=== PATIENT | female | born 1960 | race Caucasian/White ===

== ENCOUNTER → 2017-08-12 | Outpatient (REF) | payer OTHER, MEDICAID | LOC: M LAB REF 17:01 | DX: N39.0 Urinary tract infection, site not specified (principal) | CPT/HCPCS: 87088; 87186 ==

== ENCOUNTER → 2018-01-06 | Outpatient (REF) | payer OTHER, MEDICAID ==
[2018-01-06 18:47] LABS: IRON (FE) 103 UG/DL (50-170)
[2018-01-06 18:47] LABS: FERRITIN 420 NG/ML (8-252)
== END ==
LOC: M LAB REF 17:09
DX: R79.89 Other specified abnormal findings of blood chemistry (principal)
CPT/HCPCS: 83540

== ENCOUNTER → 2018-11-08 | Outpatient (REF) | payer MEDICARE, MEDICAID ==
[2018-11-10 08:19] LABS: LDL DIRECT 104 mg/dL (0-99)
== END ==
LOC: M LAB REF 16:11
PROVIDERS: ATTEND Nurse Practitioner Adult Health
DX: E11.65 Type 2 diabetes mellitus with hyperglycemia (principal)

== ENCOUNTER → 2019-06-20 | Outpatient (REF) | payer MEDICARE, MEDICAID ==
[2019-06-22 08:17] LABS: LDL DIRECT 75 mg/dL (0-99)
== END ==
LOC: M LAB REF 12:10
PROVIDERS: ATTEND Nurse Practitioner Adult Health
DX: R35.0 Frequency of micturition (principal); E78.00 Pure hypercholesterolemia, unspecified

== ENCOUNTER 2019-09-18 02:28 | Emergency (ER) | payer MEDICAID, MEDICARE ==
[~2019-09-18] VITALS: Ht 167.6 cm; Wt 98.6 kg
[2019-09-18 03:56] LABS: BASO # 0.1 10^3/uL (0.0-0.2); BASO % 0.3 % (0.0-1.0); EOS # 0.1 10^3/uL (0.0-0.5); EOS % 0.5 % (0.0-3.0); HEMATOCRIT 41.4 % (36.0-47.0); LYMPH % 10.8 % (24.0-44.0); MEAN CORPUSCULAR HEMOGLOBIN 31.7 pg (27.0-33.0); MEAN CORPUSCULAR HGB CONC 33.8 g/dl (32.0-36.5); MEAN CORPUSCULAR VOLUME 93.9 fl (80.0-96.0); MONO # 1.5 10^3/uL (0.0-0.8); MONO % 7.7 % (0.0-5.0); NEUTROPHILS # 15.2 10^3/uL (1.5-8.5); NEUTROPHILS % 80.2 % (36.0-66.0); PLATELET COUNT, AUTOMATED 248 10^3/uL (150-450); RED BLOOD COUNT 4.41 10^6/uL (4.00-5.40); WHITE BLOOD COUNT 18.9 10^3/uL (4.0-10.0)
[2019-09-18] MEDS ORDERED: NS 500 ML IV ONE (04:15)
[2019-09-18] MEDS ORDERED: ONDANSETRON 4MG/2ML VIAL IV ONE (04:15)
[2019-09-18 04:19] LABS: ALBUMIN 3.9 GM/DL (3.2-5.2); ALT/SGPT 37 U/L (12-78); BILIRUBIN,DIRECT 0.2 MG/DL (0.0-0.2); BILIRUBIN,TOTAL 0.4 MG/DL (0.2-1.0); CK-MB VALUE MASS 2.4 NG/ML (<3.6); CPK CREATINE PHOSPHOKINASE 91 U/L (26-192); LIPASE 189 U/L (73-393); MB/CK RELATIVE INDEX 2.64 (< OR =4); TOTAL PROTEIN 7.2 GM/DL (6.4-8.2); TROPONIN I < 0.02 NG/ML (< 0.10)
[2019-09-18] MEDS ORDERED: ONDA4TAB6 PO (06:19)
--- NOTE | 2019-09-18 06:33 | ECGEPIP ---
[facility] - ED Test Date: 2019-09-18 Pat Name: PATIENCE BONILLA Department: Room: - Gender: Female Coremaker: eleazar : 1960 Requested By: TRISTEN Arevalo Order Number: [id number] Reading MD: Eleonora Mckeon Measurements Intervals [place] Rate: 92 P: 67 NE: 144 QRS: -23 QRSD: 118 T: 110 QT: 372 QTc: 460 Interpretive Statements SINUS RHYTHM LAD MODERATE INTRAVENTRICULAR CONDUCTION DELAY ST DEVIATION AND MODERATE T-WAVE ABNORMALITY, CONSIDER LATERAL ISCHEMIA NO PRIOR ECG FOR COMPARISON CLINICAL CORRELATION ADVISED Electronically Signed on 09-18-2019 6:33:21 EDT by Eleonora Mckeon
[2019-09-18 06:45] VITALS: BP 129/67
== END 2019-09-18 06:57 | disposition home or self-care (01) ==
LOC: EDBD 02:28 → M ED 02:28
DX: K52.9 Noninfective gastroenteritis and colitis, unspecified (principal); I25.10 Atherosclerotic heart disease of native coronary artery without angina pectoris; I25.2 Old myocardial infarction; Z95.1 Presence of aortocoronary bypass graft
CPT/HCPCS: 80047; 80076; 82550; 82553; 83690; 84484; 85025; 93005; 93041; 96361; 96374; 99284; J2405

== ENCOUNTER → 2019-12-20 | Outpatient (REF) | payer MEDICARE ==
[~2019-12-20] MED LIST: ONDA4TAB6 PO
[2020-01-26 09:57] LABS: LDL DIRECT SEE SEPARATE REPORT mg/dl
== END ==
LOC: M LAB REF 16:53
PROVIDERS: ATTEND Nurse Practitioner Adult Health
DX: E78.00 Pure hypercholesterolemia, unspecified (principal)

== ENCOUNTER → 2020-04-03 | Outpatient (REF) | payer MEDICARE, MEDICAID ==
[2020-04-04 08:09] LABS: LDL DIRECT 76 mg/dL (0-99)
== END ==
LOC: M LAB REF 12:06
PROVIDERS: ATTEND Nurse Practitioner Adult Health
DX: E11.40 Type 2 diabetes mellitus with diabetic neuropathy, unspecified (principal); E78.00 Pure hypercholesterolemia, unspecified

== ENCOUNTER 2020-06-16 04:27 | Emergency (ER) | payer MEDICARE, MEDICAID ==
[~2020-06-16] VITALS: Ht 170.2 cm; Wt 98.2 kg
--- OUTSIDE RECORDS SUMMARY | 2020-06-16 04:31 | CCD | Continuity of Care Document ---
Author Author Samantha Hayden Organization Unknown Address [address] [facility] [address] [place] [address] Phone [phone] Care Team Providers Care Gauger Chief Delivery Name Role Phone Precious Hayden AUTM [phone] [employer] AUTM Problems Active Problems Provider Date Benign essential hypertension JOSE C Rincon Onset: Hypothyroidism JOSE C Rincon Onset: 06/16/2011 Disorder of nervous system due to type 2 diabetes mellitus N JOSE C Lobato Onset: 06/16/2011 Polyneuropathy due to diabetes mellitus JOSE C Rincon Onset: 06/16/2011 Pure hypercholesterolemia JOSE C Rincon Onset: 2011 Left ventricular hypertrophy by electrocardiogram JOSE C Zeng Onset: 08/30/2014 Chronic diastolic heart failure JOSE C Rincon Onset: 08/30/2014 Type 2 diabetes mellitus RASHID Castle Onset: 12/20/19 20 Social History Type Date Description Comments Sex Unknown Tobacco Use Start: Unknown End: Unknown Quit Tobacco Use Start: Unknown End: Unknown Patient is a former smoker SMOKED FOR 20 YRS A PACK A DAY Exercise Type/Frequency Exercises sporadically Seat Belt/Car Seat always uses seat belt Allergies, Adverse Reactions, Alerts Active Allergies Reaction Severity Comments Date Enalapril Cough 08/03/2018 Inactive Allergies Lipitor 04/01/2010 NKDA 01/12/2014 Medications Active Medications SIG Qnty Indications Ordering Provide r Date Trulicity 1.5mg/0.5ML Solution Pen -Inject 1 injection weekly 6ml JOSE C Rincon 04/03/20 20 Adjustable Commode 3-In-1 Misc use as needed #r35., m54.5, e11.4 1units Precious Hayden, [facility] 04/03/2020 Vascepa 1gm Capsules 1 @ din ner 30caps Precious Hayden, [facility] 04/03/2020 Fenofibrate 145mg Tablets take one tablet by mouth every day 90tabs Precious Hayden, [facility] 12/26/19 20 Rosuvastatin Calcium 40mg Tablets Take One Tablet By Mouth Every Day 90tabs Shayna Perera, [facility] 12/21 Poise Ultimate Absorbency Pads use as directed size 6 90units Precious Hayden, [facility] 07/05/2019 Drisdol 1.25mg (97870 Ut) Capsules 2 tab weekly 24caps [facility]/04[facility]2019 Clopidogrel Bisulfate 75mg Tablets Take One Tablet By Mouth Every Day 90tabs Precious Hayden, Nathaniel YOUNG 01/08/2019 DesignLine Ultra 2 w/Device Kit test twice a day and as directed e11.65 1units Shayna Perera [facility] 11/16 DesignLine Ultra Blue Strips use twice daily to check blood sugar dx e11.65 200units Shayna Perera [facility] 12/07/2018 Furosemide 40mg Tablets take one tablet by mouth every day 90tabs Precious Hayden, [facility] 10/13/2018 Yuvafem 10mcg Tablets insert 1 tablet vginally twice weekly 24tabs Precious Hayden, [facility] 10/13 Nitroglycerin 0.4mg Tablets Sub Place 1 T`Ablet Under The Tongue Every 5 Minutes For Up To 3 Doses as Needed For Chest Discomfort 25tabs Precious Hayden, [facility] 04/13/2018 Folic Acid 800mcg Tablets 1 p o qd Precious Hayden, [facility] 03/22/2018 Humalog Kwikpen 100U nit/ML Solution Pen-Inject Inject 30 Subcutaneously Before Lunch And Dinner 15units Shayna Perera [facility] 12/28/2017 Clobetasol Propionate Emollient 0.05% Cream apply small amount to rash twice daily for intermittently 60gm Shayna Perera [facility] 12/21/2017 Tresiba Flextouch 20 0Unit/ML Solution Pen-Inject Inject 70 Units Under The Skin twice Daily 60units JEFF Schrader JR 09/10/2017 Cyclobenzaprine HCL 5mg Tablets take one tablet by mouth three times a day as needed , maximum daily dose = 3 tablets 60tabs Precious Hayden, JOSE C 08/27/2017 Levothyroxine Sodium 112mcg Tablet s Take One Tablet By Mouth Every Day Before Breakfast On An Empty Stomach 90tabs JEFF Schrader JR 07/08/2017 Benadryl 25mg Capsules 1 by mouth every night at bedtime as needed 30caps Shayna Perera [facility] 03/[address] Take One Tablet By Mouth Every Day 90tabs Precious Hayden, [facility] 01/22/2017 Lancets Ultra Fine Misc test 3 times a day DX E11.40 200units Precious Hayden, [facility] 07/01/2016 Gabapentin 800mg Tablets take one tablet by mouth twice a day 180tabs Precious Hayden, [facility] 2015 Novofine Plus 32G X 4 mm Misc use three times a day or as directed for insulin 300units Precious Hayden, [facility] 01/25/2016 Pantoprazole Sodium 40mg Tablets D R take one tablet by mouth every day 90tabs Nathaniel Rincon NP 09/13/2015 Potassium Chloride Laya ER 20Meq Tablets ER Take One Tablet By Mouth Every Day 60tabs Shayna Perera, [facility] 12/04/2014 Prolia 60mg/ml Soln Prefill Syring e inject 60 mg under the skin every 6 months 1units Precious avelar, [facility] 10/12/2013 Optivar 0.05% Solution Instill One Drop Twice A Day In Each Eye as Needed 18units Precious Littlejohn r, [facility] 02/02/2013 Alcohol Wipes 70% Pads qid DX E11.40 2Boxes Shayna Perera [facility] 09/04/2010 C-Pap Mask And Supplies use as directed 1units Precious Orellana D.O. 01/18/2010 Atenolol 50mg Tablets take one tablet by mouth every morning 90tabs Precious Hayden, [facility] 010 Tylenol 8 Hour 650mg Tablets ER 1 by mouth three times a day Unknown Centrum Silver 50+Women 50+Women T ablets 1 by mouth every day Unknown Medications Administered in Office Medication SIG Qnty Indications Ordering Provider Date Prolia (denosumab) 60mg,SC injection, ND C#[id number] Injection Precious Friedman er, ANP 06/20/2019 Therapeutic Injection Injection Precious Hayden, ANP 06/20/2019 Prolia (denosumab) 60mg,SC injection, ND C#[id number] Injection Precious Reyes er, ANP 10/06/2018 Chemotherpy Admin Subcutaneous/Im Non-Ho rmonal Anti-Neoplastic Injection Nurse Brielle farah 10/06/2018 Prolia (denosumab) 60mg,SC injection, ND C#[id number] Injection Precious Friedman er, ANP 04/12/2018 Administration Of Flu Vaccine Inj ection Precious Hayden, ANP 04/12/2018 Chemotherpy Admin Subcutaneous/Im Non-Ho rmonal Anti-Neoplastic Injection Precious staley, ANP 04/12/2018 Prolia (denosumab) 60mg,SC injection, ND C#[id number] Injection Precious Friedman er, ANP 10/06/2017 Chemotherpy Admin Subcutaneous/Im Non-Ho rmonal Anti-Neoplastic Injection Precious johnsoner, ANP 10/06/2017 Administration Of Flu Vaccine Inj ection Torres Mc, [facility] 03/03/2017 Chemotherpy Admin Subcutaneous/Im Non-Ho rmonal Anti-Neoplastic Injection Precious staley, ANP 12/29/2016 Administration Of Flu Vaccine Inj ection Precious Hayden, ANP 03/31/2016 Chemotherpy Admin Subcutaneous/Im Non-Ho rmonal Anti-Neoplastic Injection Precious staley, ANP 06/20/2015 Administration Of Flu Vaccine Inj ection Precious Hayden, ANP 03/20/2015 Chemotherpy Admin Subcutaneous/Im Non-Ho rmonal Anti-Neoplastic Injection Preicous staley, ANP 08/01/2014 Chemotherpy Admin Subcutaneous/Im Non-Ho rmonal Anti-Neoplastic Injection Shayna Dumont, [facility] 11/09/2013 Chemotherpy Admin Subcutaneous/Im Non-Ho rmonal Anti-Neoplastic Injection Nurse Brielle farah 04/27/2013 Administration Of Flu Vaccine Inj ection Precious Hayden, ANP 03/09/2013 Administration Of Flu Vaccine Inj robertion Precious Liu Jackelyn, ANP 02/03/2011 Administration Of Flu Vaccine Inj noemi Liu Jackelyn, ANP 04/01/2010 Immunizations CPT Code Status Date Vaccine Lot # [id number] Given 04/03/2020 Influenza Vaccin e Quadrivalent Preser/Antibiotic Free Im Use [id number] 84942 Given 04/12/2018 Influenza Virus Vaccine, Quadrivalent (Cciiv4), Derived From 9 Given 03/03/2017 Influenza Vaccin e Quadrivalent Preser/Antibiotic Free Im Use [id number] Q2037 Given 03/31/2016 Fluvirin Virus Vaccine [id number] 01 Q2037 Given 03/20/2015 Fluvirin Virus Vaccine 54151 01 Q2037 Given 03/09/2013 Fluvirin Virus Vaccine 14293 01 Q2037 Given 02/03/2011 Fluvirin Virus Vaccine 07386 Given 04/01/2010 Influenza Virus Vaccine 66389 Given 12/30/2007 Pneumovax 23 Vital Signs Date Vital Result Comment 04/03/2020 8:52am BP Systolic 104 mmHg BP Diastolic 60 mmHg Heart Rate 68 /min Height 65.75 inches 5'5.75" Weight 216.00 lb O2 % BldC Oximetry 96 % BMI (Body Mass Index) 35.1 kg/m2 12/20/2019 2:49pm BP Systolic 96 mmHg BP Diastolic 50 mmHg Heart Rate 75 /min Height 65.75 inches 5'5.75" Weight 228.00 lb O2 % BldC Oximetry 97 % RM Air BMI (Body Mass Index) 37.1 kg/m2 Results Test Acquired Date Facility Test Result H/L Range Note Complete Blood Count 04/03/2020 [facility] Special Education Educational Assistant: Dr Fabiano Mcgowan [place], [place] [id number] [phone] WBC 11.9 x10*3/UL High 4.1 - 10.9 1 RBC 4.74 x10*6/UL 4.20 - 6.30 Hemoglobin 14.7 g/dL 12.0 - 18.0 Hematocrit 42.9 % 37.0 - 51.0 MCV 90.5 fL 80.0 - 97.0 MCH 31.0 pg 26.0 - 32.0 MCHC 34.2 g/dL 31.0 - 38.0 RDW 12.6 % 11.6 - 13.7 PLT 313 x10*3/UL 140 - 440 MPV 9.4 FL 7.8 - 11.0 Lymph % 27.2 % 10.0 - 58.5 Mid % 6.8 % 1.7 - 9.3 Neut % 66.0 % 37.0 - 92.0 Lymph # 3.2 x10*3/UL 0.6 - 4.1 Mid # 0.8 x10*3/UL High 0.1 - 0.6 Neut # 7.9 x10*3/UL High 2.0 - 7.8 A1c 04/03/2020 [facility] , Special Education Educational Assistant: [place] [address] [phone] Hba1c 11.3 % High <5.7 2 Est Avg Glucose 278 mg/dL High 60 - 110 Comprehensive Chem Profile 04/03/2020 [facility] Special Education Educational Assistant: Dr Fabiano [place] [address] [phone] Glucose 628 mg/dL Critical high 74 - 99 3 BUN 26 mg/dL High 7 - 18 Creatinine 1.2 mg/dL 0.6 - 1.3 Sodium 129 mEq/L Low 136 - 145 4 Potassium 4.6 mEq/L 3.5 - 5.1 Chloride 92 mEq/L Low 98 - 107 Carbon Dioxide 25 mEq/L 21 - 32 Calcium 9.8 mg/dL 8.5 - 10.1 Alk. Phosphatase 97 mg/dL 46 - 116 Total Bilirubin 0.8 mg/dL 0.2 - 1.0 Ast (Sgot) 16 U/L 15 - 37 Alt (SGPT) 21 U/L 12 - 78 Albumin 3.9 g/dL 3.4 - 5.0 Total Protein 7.5 g/dL 6.4 - 8.2 A/G Ratio 1.08 CALC 1.00 - 1.90 GFR 46 mL/min Low >60 GFR 55 mL/min Low >60 5 Lipid Profile 04/03/2020 [facility] , Special Education Educational Assistant: [place] [address] [phone] Cholesterol 193 mg/dL 131 - 200 Triglycerides 706 mg/dL High 30 - 150 HDL Cholesterol 36 mg/dL 35 - 60 LDL (Calculated) Unable to calcul <SEE NOTE> CALC 50 - 159 6 Laboratory test finding 04/03/2020 [facility] Special Education Educational Assistant: Dr Fab[place] [address] [phone] Thyroid Stimulating Hormone 5.73 uIU/mL High 0.3 6 - 3.74 Microalbumin/Creatinine Urine 04/03/2020 [facility] Special Education Educational Assistant: Dr Fabiano Mcgowan [place] [id number] [phone] Microalbumin Urine 15.9 mg/L 1.3 - 20.0 Urine Creatinine 49.8 mg/dL 30.0 - 125.0 Microalb/Creat Ratio 31.9 ug/mg High 0.0 - 30.0 Laboratory test finding 04/03/2020 [facility] [address] [place] [address] [phone] Vitamin B12 Level > 2000 pg/mL High 247-911 7 LDL Direct 04/03/2020 [facility] [address] [place] [address] [phone] LDL Direct 76 mg/dL Normal 0-99 Comment LDL Direct TNP Normal . 8 Complete Blood Count 12/20/2019 [facility] Special Education Educational Assistant: Dr Fabiano Mcgowan [place] [id number] [phone] WBC 9.9 x10*3/UL 4.1 - 10.9 RBC 4.14 x10*6/UL Low 4.20 - 6.30 Hemoglobin 12.9 g/dL 12.0 - 18.0 Hematocrit 37.2 % 37.0 - 51.0 MCV 89.7 fL 80.0 - 97.0 MCH 31.2 pg 26.0 - 32.0 MCHC 34.8 g/dL 31.0 - 38.0 RDW 12.0 % 11.6 - 13.7 PLT 243 x10*3/UL 140 - 440 MPV 8.5 FL 7.8 - 11.0 Lymph % 41.9 % 10.0 - 58.5 Mid % 8.5 % 1.7 - 9.3 Neut % 49.6 % 37.0 - 92.0 Lymph # 4.1 x10*3/UL 0.6 - 4.1 Mid # 0.9 x10*3/UL High 0.1 - 0.6 Neut # 4.9 x10*3/UL 2.0 - 7.8 A1c 12/20/2019 [facility] , Special Education Educational Assistant: [place] [address] [phone] Hba1c 10.7 g/dL High 4.8 - 5.6 9 Est Avg Glucose 260 mg/dL High 60 - 110 Comprehensive Chem Profile 12/20/2019 [facility] Special Education Educational Assistant: Dr Fabiano [place] [address] [phone] Glucose 223 mg/dL High 74 - 99 10 BUN 22 mg/dL High 7 - 18 Creatinine 0.8 mg/dL 0.6 - 1.3 Sodium 143 mEq/L 136 - 145 Potassium 4.5 mEq/L 3.5 - 5.1 Chloride 104 mEq/L 98 - 107 Carbon Dioxide 24 mEq/L 21 - 32 Calcium 9.4 mg/dL 8.5 - 10.1 Alk. Phosphatase 93 mg/dL 46 - 116 Total Bilirubin 0.4 mg/dL 0.2 - 1.0 Ast (Sgot) 34 U/L 15 - 37 Alt (SGPT) 36 U/L 12 - 78 Albumin 3.5 g/dL 3.4 - 5.0 Total Protein 7.0 g/dL 6.4 - 8.2 A/G Ratio 1.00 CALC 1.00 - 1.90 GFR >= 60 mL/min >60 GFR >= 60 mL/min >60 11 Lipid Profile 12/20/2019 [facility] , Special Education Educational Assistant: [place] [address] [phone] Cholesterol 205 mg/dL High 131 - 200 Triglycerides 619 mg/dL High 30 - 150 HDL Cholesterol 32 mg/dL Low 35 - 60 LDL (Calculated) Unable to calcul <SEE NOTE> CALC 50 - 159 12 Laboratory test finding 12/20/2019 [facility] Special Education Educational Assistant: Dr Fabiano [place] [address] [phone] Vitamin D 25-Hydroxy 38.0 24.0 - 80.0 13 Laboratory test finding 12/20/2019 [facility] [address] [place] [address] [phone] LDL Direct SEE SEPARATE REP <SEE NOTE> mg/dL Normal 14 1 NOTE: CBC VERIFIED 2 NOTE: A1C,TRIG VERIFIED Lab Result Notes: Pre-Diabetes 5.7 - 6.4 % Diabetes = or > 6.5% 3 CRITICAL: PRECIOUS REYESCER NOTIFIED NOTE: RESULT VERIFIED. 100-125 mg/dL PRE-DIABETES/FASTING >126 mg/dL DIABETES/FASTING 4 NOTE: LYTES VERIFIED 5 CHRONIC KIDNEY DISEASE STAGI NG PER NKF STAGE I & II GFR >= 60 NORMAL TO MILDLY DECREASED STAGE III GFR 30-59 MODERATELY DECREASED STAGE IV GFR 15-29 SEVERELY DECREASED STAGE V GFR <15 VERY LITTLE GFR LEFT ESRD GFR <15 ON POWER PLANT ENGINEER 6 Unable to calculate 7 VITAMIN B12 NORMAL RANGE NORMAL 247 - 911 PG/ML INDETERMINATE 211 - 246 PG/ML DEFICIENT LESS THAN 211 PG/ML 8 Performed at: RN - [facility] [address] [id number] Special Education Educational Assistant: Suzan Leyva MD, Phone: [phone] Lab Result Notes: Pre-Diabetes 5.7 - 6.4 % Diabetes = or > 6.5% 10 100-125 mg/dL PRE-DIABET ES/FASTING >126 mg/dL DIABETES/FASTING 11 CHRONIC KIDNEY DISEASE STAGI NG PER NKF STAGE I & II GFR >= 60 NORMAL TO MILDLY DECREASED STAGE III GFR 30-59 MODERATELY DECREASED STAGE IV GFR 15-29 SEVERELY DECREASED STAGE V GFR <15 VERY LITTLE GFR LEFT ESRD GFR <15 ON POWER PLANT ENGINEER 12 Unable to calculate 13 This test was performed osbaldo [email or web address] [place] Vitamin D immunoassay kit. Values obtained with different assay methods should not be used interchangeably. 14 SEE SEPARATE REPORT Testing performed at reference lab . Report copy to follow on a separate form. 01/26/20 REF LAB#:[id number] Procedures Date Code Description Status 12/15/2019 [id number] Diabetic Retinal Eye Exam Comple marcus 11/16/2018 [id number] Mammogram Completed 11/11/2018 [id number] Diabetic Retinal Eye Exam Comple marcus 06/01/2017 [id number] Diabetic Retinal Eye Exam Comple marcus 05/13/2017 [id number] Mammogram Completed 05/08/2016 [id number] Mammogram Completed 05/04/2015 848593707 Bone Mineral Density Test Comple marcus 05/04/2015 [id number] Mammogram Completed 01/19/2015 [id number] Diabetic Foot Exam Completed 03/29/2013 [id number] Mammogram Completed 09/20/2012 193786864 Diabetic Foot Exam Completed 08/10/2012 488294635 Bone Mineral Density Test Comple marcus 03/02/2012 84641115 Mammogram Completed 04/17/2011 [id number] Mammogram Completed 02/24/2011 [id number] Mammogram Completed 06/04/2010 [id number] Colonoscopy Completed 06/08/2009 [id number] Mammogram Completed 05/18/2008 [id number] Colonoscopy Completed Medical Devices Description No Information Available Encounters Type Date Location Provider Dx Diagnosis Office Visit 12/20/2019 3:00p [facility] Shayna Hemphill ne, SEROLOGIST E11.65 Type 2 diabetes mellitus with hyperglyce cally E11.40 Type 2 diabetes mellitus wit h diabetic neuropathy, unsp Z79.4 bed bug exterminator (current) use of i nsulin I25.10 Athscl heart disease of annie ve coronary artery w/o ang pctrs I11.0 Hypertensive heart disease w ith heart failure I50.32 Chronic diastolic (congestiv e) heart failure E78.2 Mixed hyperlipidemia E55.9 Vitamin D deficiency, unspec ified Assessments Date Code Description Provider 04/03/2020 E11.40 Type 2 diabetes sanchez itus with diabetic neuropathy, unspecified Precious Hayden, JOSE C 04/03/2020 I10 Essential (primary) hypertension Precious Hayden, ANP 04/03/2020 E78.00 Pure hypercholesterolemia, unspe cified Precious Hayden, JOSE C 04/03/2020 E78.2 Mixed hyperlipidemia Precious Alvarenga icer, ANP 04/03/2020 E55.9 Vitamin D deficiency, unspecifie d Precious Hayden, ANP 04/03/2020 I50.32 Chronic diastolic (congestive) h eart failure Precious Hayden, JOSE C 04/03/2020 I25.10 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 angina pectoris Precious Hayden, ANP 04/03/2020 E66.09 Other obesity due to excess westley jh Precious Hayden, ANP 04/03/2020 Z68.35 Body mass index [BMI] 35.0-35.9, adult Precious Hayden, ANP 03/07/2020 I10 Essential (primary) hypertension Fabiano Mcgowan MD 03/07/2020 E78.00 Pure hypercholesterolemia, unspe cified Fabiano Mcgowan MD 03/07/2020 E78.2 Mixed hyperlipidemia Fabiano Mcgowan MD 03/07/2020 E55.9 Vitamin D deficiency, unspecifie d Fabiano Mcgowan MD 01/31/2020 I10 Essential (primary) hypertension Fabiano Mcgowan MD 01/31/2020 E78.00 Pure hypercholesterolemia, unspe cified Fabiano Mcgowan MD 01/31/2020 E78.2 Mixed hyperlipidemia Fabiano Mcgowan MD 01/31/2020 I50.32 Chronic diastolic (congestive) h eart failure Fabiano Mcgowan MD 12/29/2019 I10 Essential (primary) hypertension Fabiano Mcgowan MD 12/29/2019 E78.00 Pure hypercholesterolemia, unspe cified Fabiano Mcgowan MD 12/29/2019 E78.2 Mixed hyperlipidemia Fabaino Mcgowan MD 12/29/2019 I50.32 Chronic diastolic (congestive) h eart failure Fabiano Mcgowan MD 12/20/2019 E11.65 Type 2 diabetes mellitus with hy perglycemia Shayna Perera [facility] 12/20/2019 E11.40 Type 2 diabetes mellitus with di abetic neuropathy, unspecifi Shayna Perera [facility] 12/20/2019 Z79.4 MCFP (current) use of insul in Shayna Perera [facility] 12/20/2019 I25.10 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 angina pectoris Shayna Perera [facility] 12/20/2019 I11.0 Hypertensive heart disease with heart failure Shayna Perera [facility] 12/20/2019 I50.32 Chronic diastolic (congestive) h eart failure Shayna Perera [facility] 12/20/2019 E78.2 Mixed hyperlipidemia Shayna Perera [facility] 12/20/2019 E55.9 Vitamin D deficiency, unspecifie d Shayna Perera [facility] 11/17/2019 I10 Essential (primary) hypertension Fabiano Mcgowan MD 11/17/2019 E78.00 Pure hypercholesterolemia, unspe cified Fabiano Mcgowan MD 11/17/2019 E78.2 Mixed hyperlipidemia Fabiano Mcgowan MD 11/17/2019 E66.09 Other obesity due to excess westley jh Fabiano Mcgowan MD 11/14/2019 I10 Essential (primary) hypertension Fabiano Mcgowan MD 11/14/2019 E78.00 Pure hypercholesterolemia, unspe cified Fabiano Mcgowan MD 11/14/2019 E03.9 Hypothyroidism, unspecified Abiodun leonor Mcgowan MD 11/14/2019 E11.65 Type 2 diabetes mellitus with hy perglycemia Fabiano Mcgowan MD 10/11/2019 I10 Essential (primary) hypertension Fabiano Mcgowan MD 10/11/2019 E78.00 Pure hypercholesterolemia, unspe cidonovan Mcgowan MD 10/11/2019 E03.9 Hypothyroidism, unspecified Abiodun leonor Mcgowan MD 10/11/2019 E11.65 Type 2 diabetes mellitus with hy perglycemia Fabiano Mcgowan MD Plan of Treatment Future Appointment(s):* 07/04/2020 2:00 pm - JOSE C Rincon at [facility] * 07/04/2020 1:40 pm [facility] 04/03/2020 - JOSE C Rincon* E11.40 Type 2 diabetes mellitus with diabetic neuropathy, unspecified * I10 Essential (primary) hypertension * E78.00 Pure hypercholesterolemia, unspecified * E78.2 Mixed hyperlipidemia * E55.9 Vitamin D deficiency, unspecified * I50.32 Chronic diastolic (congestive) heart failure * I25.10 Atherosclerotic heart disease of [place] coronary artery without angina pectoris * E66.09 Other obesity due to excess calories * Z68.35 Body mass index [BMI] 35.0-35.9, adult * All * New Medication:* Trulicity 1.5 mg/0.5ML - 1 injection weekly * Adjustable Commode 3-In-1 - use as needed #r35., m54.5, e11.4 * Vascepa 1 gm - 1 @ dinner * Comments:* Plan 3 month follow up. Time spent with her was over 50 minutes * Immunizations/Injections:* Therapeutic Injection Functional Status Description No Information Available Mental Status Description No Information Available Referrals Description No Information Available
--- OUTSIDE RECORDS SUMMARY | 2020-06-16 04:31 | CCD | Continuity of Care Document ---
Author Author Samantha Hayden Organization Unknown Address [address] [facility] [address] [place] [address] Phone [phone] Care Team Providers Care Glassware Maker Name Role Phone Precious Hayden AUTM [phone] [employer] AUTM [phone] Problems Active Problems Provider Date Benign essential [...] needed #r35., m54.5, e11.4 1units Precious Hayden, [facility] 04/03/2020 Vascepa 1gm Capsules 1 @ din ner 30caps Precious Hayden, [facility] 04/03/2020 Fenofibrate 145mg Tablets take one tablet by mouth every day 90tabs Precious Hayden, [facility] 12/26/19 20 Rosuvastatin Calcium 40mg Tablets Take One Tablet By Mouth Every Day 90tabs Shayna Perera, [facility] 12/21 Poise Ultimate Absorbency Pads use as directed size 6 90units Precious Hayden, [facility] 07/05/2019 Drisdol 1.25mg (48670 Ut) Capsules 2 tab weekly 24caps [facility] 07/04/2019 Clopidogrel Bisulfate 75mg Tablets Take One Tablet By Mouth Every Day 90tabs Precious Hayden, Nathaniel YOUNG 01/08/2019 Biomonitor Ultra 2 w/Device Kit test twice a day and as directed e11.65 1units Shayna Perera [facility] 11/16 Biomonitor Ultra Blue Strips use twice daily to check blood sugar dx e11.65 200units Shayna Perera [facility] 12/07/2018 Furosemide 40mg Tablets take one tablet by mouth every day 90tabs Precious Hayden, [facility] 10/13/2018 Yuvafem 10mcg Tablets insert 1 tablet vginally twice weekly 24tabs Precious Hayden, [facility] 10/13 Nitroglycerin 0.4mg Tablets Sub Place 1 T`Ablet Under The Tongue Every 5 Minutes For Up To 3 Doses as Needed For Chest Discomfort 25tabs Precious Hayden, [facility] 04/13/2018 Folic Acid 800mcg Tablets 1 p o qd Precious Hayden, [facility] 03/22/2018 Humalog Kwikpen 100U nit/ML Solution Pen-Inject Inject 30 Subcutaneously Before Lunch And Dinner 15units Shayna Perera [facility] 12/28/2017 Clobetasol Propionate Emollient 0.05% Cream apply small amount to rash twice daily for intermittently 60gm Shayna Perera [facility] 12/21/2017 Tresiba Flextouch 20 0Unit/ML Solution Pen-Inject [...] at bedtime as needed 30caps Shayna Perera [facility] 03/[address] Take One Tablet By Mouth Every Day 90tabs Precious Hayden, [facility] 01/22/2017 Lancets Ultra Fine Misc test 3 times a day DX E11.40 200units Precious Hayden, [facility] 07/01/2016 Gabapentin 800mg Tablets take one tablet by mouth twice a day 180tabs Precious Hayden, [facility] 2015 Novofine Plus 32G X 4 mm Misc use three times a day or as directed for insulin 300units Precious Hayden, [facility] 01/25/2016 Pantoprazole Sodium 40mg Tablets D R take one tablet by mouth every day 90tabs Nathaniel Rincon NP 09/13/2015 Potassium Chloride Laya ER 20Meq Tablets ER Take One Tablet By Mouth Every Day 60tabs Shayna Perera, [facility] 12/04/2014 Prolia 60mg/ml Soln Prefill Syring e inject 60 mg under the skin every 6 months 1units Precious avelar, [facility] 10/12/2013 Optivar 0.05% Solution Instill One Drop Twice A Day In Each Eye as Needed 18units Precious Littlejohn r, [facility] 02/02/2013 Alcohol Wipes 70% Pads qid DX E11.40 2Boxes Shayna Perera [facility] 09/04/2010 C-Pap Mask And Supplies use as directed 1units Precious Orellana D.O. 01/18/2010 Atenolol 50mg Tablets take one tablet by mouth every morning 90tabs Precious Hayden, [facility] 010 Tylenol 8 Hour 650mg Tablets ER 1 by mouth three times a day Unknown Centrum Silver 50+Women 50+Women T ablets 1 by mouth every day Unknown Medications Administered in Office Medication SIG Qnty Indications Ordering Provider Date Administration Of Flu Vaccine Inj ection Precious Boggscer, [facility] 04/03/2020 Prolia (denosumab) 60mg,SC injection, ND C#[id number] Injection Precious Liu [facility] er, ANP 06/20/2019 Therapeutic Injection Injection Precious TheresaMickey Hayden, ANP 06/20/2019 Prolia (denosumab) 60mg,SC injection, ND C#[id number] Injection Precious Liu [facility] er, ANP 10/06/2018 Chemotherpy Admin Subcutaneous/Im Non-Ho rmonal Anti-Neoplastic Injection Nurse Brielle farah 10/06/2018 Prolia (denosumab) 60mg,SC injection, ND C#[id number] Injection Precious Liu [facility] er, ANP 04/12/2018 Administration Of Flu Vaccine Inj ection Precious Liu Jackelyn, ANP 04/12/2018 Chemotherpy Admin Subcutaneous/Im Non-Ho rmonal Anti-Neoplastic Injection Precious staley, ANP 04/12/2018 Prolia (denosumab) 60mg,SC injection, ND C#[id number] Injection Precious Liu [facility] er, ANP 10/06/2017 Chemotherpy Admin Subcutaneous/Im Non-Ho rmonal Anti-Neoplastic Injection Precious johnsoner, ANP 10/06/2017 Administration Of Flu Vaccine Inj ection Torres Mc, [facility] 03/03/2017 Chemotherpy Admin Subcutaneous/Im Non-Ho rmonal Anti-Neoplastic Injection Precious staley, ANP 12/29/2016 Administration Of Flu Vaccine Inj ection Precious JMickey Hayden, ANP 03/31/2016 Chemotherpy Admin Subcutaneous/Im Non-Ho rmonal Anti-Neoplastic Injection Precious staley, ANP 06/20/2015 Administration Of Flu Vaccine Inj ection Precious TheresaMickey Hayden, ANP 03/20/2015 Chemotherpy Admin Subcutaneous/Im Non-Ho rmonal Anti-Neoplastic Injection Precious staley, ANP 08/01/2014 Chemotherpy Admin Subcutaneous/Im Non-Ho rmonal Anti-Neoplastic Injection Shayna Dumont, [facility] 11/09/2013 Chemotherpy Admin Subcutaneous/Im Non-Ho rmonal Anti-Neoplastic Injection Nurse Brielle farah 04/27/2013 Administration Of Flu Vaccine Inj ection Precious Hayden, ANP 03/09/2013 Administration Of Flu Vaccine Inj ection Precious Hayden, ANP 02/03/2011 Administration Of Flu Vaccine Inj ection Precious Hayden, ANP 04/01/2010 Immunizations CPT Code Status Date Vaccine Lot # [id number] Given 04/03/2020 Influenza Vaccin e Quadrivalent Preser/Antibiotic Free Im Use [id number] Given 04/12/2018 Influenza Virus Vaccine, Quadrivalent (Cciiv4), Derived From 8 Given 03/03/2017 Influenza Vaccin e Quadrivalent Preser/Antibiotic Free Im Use [id number] Q2037 Given 03/31/2016 Fluvirin Virus Vaccine 18822 01 Q2037 Given 03/20/2015 Fluvirin Virus Vaccine 16569 01 Q2037 Given 03/09/2013 Fluvirin Virus Vaccine 41031 01 Q2037 Given 02/03/2011 Fluvirin Virus Vaccine 76997 Given 04/01/2010 Influenza Virus Vaccine 66108 Given 12/30/2007 Pneumovax 23 Vital Signs Date [...] H/L Range Note Complete Blood Count 04/03/2020 [facility] Manufacturing Area Manager: Dr Fabiano Mcgowan [place], [place] [id number] [phone] WBC 11.9 x10*3/UL High 4.1 - 10.9 [...] x10*3/UL High 2.0 - 7.8 A1c 04/03/2020 [facility] , Manufacturing Area Manager: [place] [address] [phone] Hba1c 11.3 % High <5.7 2 Est Avg Glucose 278 mg/dL High 60 - 110 Comprehensive Chem Profile 04/03/2020 [facility], Manufacturing Area Manager: [place] [address] [phone] Glucose 628 mg/dL Critical high 74 - [...] mL/min Low >60 5 Lipid Profile 04/03/2020 [facility] , Manufacturing Area Manager: [place] [address] [phone] Cholesterol 193 mg/dL 131 - 200 Triglycerides 706 mg/dL High 30 - 150 HDL Cholesterol 36 mg/dL 35 - 60 LDL (Calculated) Unable to calcul <SEE NOTE> CALC 50 - 159 6 Laboratory test finding 04/03/2020 [place] [facility] Manufacturing Area Manager: [place] [address] [phone] Thyroid Stimulating Hormone 5.73 uIU/mL High 0.3 6 - 3.74 Microalbumin/Creatinine Urine 04/03/2020 [facility] Manufacturing Area Manager: [place] [address] [phone] Microalbumin Urine 15.9 mg/L 1.3 - 20.0 Urine Creatinine 49.8 mg/dL 30.0 - 125.0 Microalb/Creat Ratio 31.9 ug/mg High 0.0 - 30.0 Laboratory test finding 04/03/2020 [facility] [address] [place] [address] [phone] Vitamin B12 Level > 2000 pg/mL High 247-911 7 LDL Direct 04/03/2020 [facility] [address] [place] [address] [phone] LDL Direct 76 mg/dL Normal 0-99 Comment LDL Direct TNP Normal . 8 Complete Blood Count 12/20/2019 [place] [facility] Manufacturing Area Manager: [place] [address] [phone] WBC 9.9 x10*3/UL 4.1 - 10.9 RBC [...] 4.9 x10*3/UL 2.0 - 7.8 A1c 12/20/2019 [facility] , Manufacturing Area Manager: Dr Fabiano [place]gow[place] [address] [phone] Hba1c 10.7 g/dL High 4.8 - 5.6 9 Est Avg Glucose 260 mg/dL High 60 - 110 Comprehensive Chem Profile 12/20/2019 [facility], Manufacturing Area Manager: Dr Fabiano [place]gow[place] [address] [phone] Glucose 223 mg/dL High 74 - 99 [...] 60 mL/min >60 11 Lipid Profile 12/20/2019 [facility] , Manufacturing Area Manager: [place] [address] [phone] Cholesterol 205 mg/dL High 131 - 200 Triglycerides 619 mg/dL High 30 - 150 HDL Cholesterol 32 mg/dL Low 35 - 60 LDL (Calculated) Unable to calcul <SEE NOTE> CALC 50 - 159 12 Laboratory test finding 12/20/2019 [facility] Manufacturing Area Manager: [place] [address] [phone] Vitamin D 25-Hydroxy 38.0 24.0 - 80.0 13 Laboratory test finding 12/20/2019 [facility] [address] [place] [address] [phone] LDL Direct SEE SEPARATE REP <SEE NOTE> mg/dL Normal 14 1 NOTE: CBC VERIFIED 2 NOTE: A1C,TRIG VERIFIED Lab Result Notes: Pre-Diabetes 5.7 - 6.4 % Diabetes = or > 6.5% 3 CRITICAL: PRECIOUS JACKELYN NOTIFIED NOTE: RESULT VERIFIED. 100-125 mg/dL PRE-DIABETES/FASTING >126 mg/dL DIABETES/FASTING 4 NOTE: LYTES VERIFIED 5 CHRONIC KIDNEY DISEASE STAGI NG PER NKF STAGE I & II GFR >= 60 NORMAL TO MILDLY DECREASED STAGE III GFR 30-59 MODERATELY DECREASED STAGE IV GFR 15-29 SEVERELY DECREASED STAGE V GFR <15 VERY LITTLE GFR LEFT ESRD GFR <15 ON TAVERN KEEPER 6 Unable to calculate 7 VITAMIN B12 NORMAL RANGE NORMAL 247 - 911 PG/ML INDETERMINATE 211 - 246 PG/ML DEFICIENT LESS THAN 211 PG/ML 8 Performed at: RN - [facility] [address] [id number] Manufacturing Area Manager: Suzan Leyva MD, Phone: [phone] Lab Result Notes: Pre-Diabetes 5.7 - [...] LITTLE GFR LEFT ESRD GFR <15 ON TAVERN KEEPER 12 Unable to calculate 13 This test was performed osbaldo [email or web address] [employer] Vitamin D immunoassay kit. Values obtained with different assay methods should not be used interchangeably. 14 SEE SEPARATE REPORT Testing performed at reference lab . Report copy to follow on a separate form. 01/26/20 REF LAB#:[id number] Procedures Date Code Description Status 12/15/2019 [id number] Diabetic Retinal Eye Exam Comple marcus 11/16/2018 [id number] Mammogram Completed 11/11/2018 [id number] Diabetic Retinal Eye Exam Comple marcus 06/01/2017 [id number] Diabetic Retinal Eye Exam Comple marcus 05/13/2017 [id number] Mammogram Completed 05/08/2016 [id number] Mammogram Completed 05/04/2015 [id number] Bone Mineral Density Test Comple marcus 05/04/2015 [id number] Mammogram Completed 01/19/2015 [id number] Diabetic Foot Exam Completed 03/29/2013 [id number] Mammogram Completed 09/20/2012 [id number] Diabetic Foot Exam Completed 08/10/2012 [id number] Bone Mineral Density Test Comple marcus 03/02/2012 [id number] Mammogram Completed 04/17/2011 [id number] Mammogram Completed 02/24/2011 [id number] Mammogram Completed 06/04/2010 [id number] Colonoscopy Completed 06/08/2009 [id number] Mammogram Completed 05/18/2008 [id number] Colonoscopy Completed Medical Devices Description No Information Available Encounters Type Date Location Provider Dx Diagnosis Office Visit 04/03/2020 9:00a [facility] 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 Shayna Hemphill ne, BRAN MIXER E11.65 Type 2 diabetes mellitus with hyperglyce cally E11.40 Type 2 diabetes mellitus wit h diabetic neuropathy, unsp Z79.4 group home (current) use of i nsulin I25.10 Athscl heart disease of [place] ve coronary artery w/o ang pctrs I11.0 Hypertensive heart disease w ith heart failure I50.32 Chronic diastolic (congestiv e) heart failure E78.2 Mixed hyperlipidemia E55.9 Vitamin D deficiency, unspec ified Assessments Date Code Description Provider 04/03/2020 E11.40 Type 2 diabetes sanchez itus with diabetic neuropathy, unspecified Precious Hayden, ANP 04/03/2020 I10 Essential (primary) hypertension Precious Hayden, ANP 04/03/2020 E78.2 Mixed hyperlipidemia Precious Alvarenga icer, ANP 04/03/2020 E55.9 Vitamin D deficiency, unspecifie d Precious Hayden, ANP 04/03/2020 I50.32 Chronic diastolic (congestive) h eart failure Precious Hayden, ANP 04/03/2020 I25.10 Atherosclerotic hear t disease of [place] coronary artery without angina pectoris Precious Hayden, ANP 04/03/2020 E66.09 Other obesity due to excess westley jh Precious Hayden, ANP 04/03/2020 Z68.35 Body mass index [BMI] 35.0-35.9, adult Precious Hayden, ANP 04/03/2020 Z23 Encounter for immunization Precious Hayden, ANP 03/07/2020 I10 Essential (primary) [...] Fabiano Mcgowan MD 12/29/2019 E78.2 Mixed hyperlipidemia Fabiano Mcgowan MD 12/29/2019 I50.32 Chronic diastolic (congestive) h eart failure Fabiano Mcgowan MD 12/20/2019 E11.65 Type 2 diabetes mellitus with hy perglycemia RASHID Castle 12/20/2019 E11.40 Type 2 diabetes mellitus with di abetic neuropathy, unspecifi Shayna Perera [facility] 12/20/2019 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 Shayna Salvador Sharifa [facility] 12/20/2019 I25.10 Atherosclerotic hear t disease of [place] coronary artery without angina pectoris Shayna Madeleine Sharifa [facility] 12/20/2019 I11.0 Hypertensive heart disease with heart failure Shayna Madeleine Sharifa [facility] 12/20/2019 I50.32 Chronic diastolic (congestive) h eart failure Shayna Perera [facility] 12/20/2019 E78.2 Mixed hyperlipidemia Shayna Madeleine Sharifa [facility] 12/20/2019 E55.9 Vitamin D deficiency, unspecifie d Shayna Perera [facility] 11/17/2019 I10 Essential (primary) hypertension Fabiano Mcgowan [...] Treatment Future Appointment(s):* 07/04/2020 2:00 pm - Precious Hayden, JOSE C at [facility] * 07/04/2020 1:40 pm - Nurse #2 at [facility] 12/20/2019 - CRISPIN [place]* E11.65 Type 2 diabetes mellitus with hyperglycemia* Comments:* Diet and exercise discussed. A1C pending * E11.40 Type 2 diabetes mellitus with diabetic neuropathy, unspecifi* Comments: * importance of daily foot exam discussed. 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 * I50.32 Chronic diastolic (congestive) heart failure * E78.2 Mixed hyperlipidemia* Comments:* lipids are terrible...? if she is actually taking Rosuvastatin. * Recommendations:* low cholesterol diet. * E55.9 Vitamin D deficiency, unspecified* Comments:* Vitamin D level pending Functional Status Description No Information Available Mental Status Description No Information Available Referrals Description No Information Available
--- OUTSIDE RECORDS SUMMARY | 2020-06-16 04:32 | CCD ---
Author Author [facility] Organization [facility] Address Unknown Phone Unavailable Care Team Providers Care Manager Transfer Name Role Phone Fons, M Shayna WEATHER ANCHOR Unavailable Unavailable Fons, M Shayna WEATHER ANCHOR Unavailable Unavailable Fons, M Shayna WEATHER ANCHOR Unavailable Unavailable Fons, M Shayna WEATHER ANCHOR Unavailable Unavailable Fons, M Shayna WEATHER ANCHOR Unavailable Unavailable Fons, M Shayna WEATHER ANCHOR Unavailable Unavailable Fons, M Shayna WEATHER ANCHOR Unavailable Unavailable Fons, M Shayna WEATHER ANCHOR Unavailable Unavailable Fons, M Shayna WEATHER ANCHOR Unavailable Unavailable Fons, M Shayna WEATHER ANCHOR Unavailable Unavailable Fons, M Shayna WEATHER ANCHOR Unavailable Unavailable Fons, M Shayna WEATHER ANCHOR Unavailable Unavailable Fons, M Shayna WEATHER ANCHOR Unavailable Unavailable Fons, M Shayna WEATHER ANCHOR Unavailable Unavailable Fons, M Shayna WEATHER ANCHOR Unavailable Unavailable Fons, M Shayna WEATHER ANCHOR Unavailable Unavailable Fons, M Shayna WEATHER ANCHOR Unavailable Unavailable Fons, M Shayna WEATHER ANCHOR Unavailable Unavailable Fons, M Shayna WEATHER ANCHOR Unavailable Unavailable Fons, M Shayna WEATHER ANCHOR Unavailable Unavailable Fons, M Shayna WEATHER ANCHOR Unavailable Unavailable Fons, M Shayna WEATHER ANCHOR Unavailable Unavailable Fons, M Shayna WEATHER ANCHOR Unavailable Unavailable Fons, M Shayna WEATHER ANCHOR Unavailable Unavailable Fons, M Shayna WEATHER ANCHOR Unavailable Unavailable Fons, M Shayna WEATHER ANCHOR Unavailable Unavailable Fons, M Shayna WEATHER ANCHOR Unavailable Unavailable Fons, M Shayna WEATHER ANCHOR Unavailable Unavailable Fons, M Shayna WEATHER ANCHOR Unavailable Unavailable Fons, M Shayna WEATHER ANCHOR Unavailable Unavailable Fons, M Shayna WEATHER ANCHOR Unavailable Unavailable Fons, M Shayna WEATHER ANCHOR Unavailable Unavailable Fons, M Shayna WEATHER ANCHOR Unavailable Unavailable Fons, M Shayna WEATHER ANCHOR Unavailable Unavailable Fons, M Shayna WEATHER ANCHOR Unavailable Unavailable Fons, M Shayna WEATHER ANCHOR Unavailable Unavailable Fons, M Shayna WEATHER ANCHOR Unavailable Unavailable Fons, M Shayna WEATHER ANCHOR Unavailable Unavailable Fons, M Shayna WEATHER ANCHOR Unavailable Unavailable Fons, M Shayna WEATHER ANCHOR Unavailable Unavailable Fons, M Shayna WEATHER ANCHOR Unavailable Unavailable Fons, M Shayna WEATHER ANCHOR Unavailable Unavailable Fons, M Shayna WEATHER ANCHOR Unavailable Unavailable Fons, M Shayna WEATHER ANCHOR Unavailable Unavailable Fons, M Shayna WEATHER ANCHOR Unavailable Unavailable Fons, M Shayna WEATHER ANCHOR Unavailable Unavailable Fons, M Shayna WEATHER ANCHOR Unavailable Unavailable Fons, M Shayna WEATHER ANCHOR Unavailable Unavailable Fons, M Shayna WEATHER ANCHOR Unavailable Unavailable Fons, M Shayna WEATHER ANCHOR Unavailable Unavailable Fons, M Shayna WEATHER ANCHOR Unavailable Unavailable Fons, M Shayna WEATHER ANCHOR Unavailable Unavailable Fons, M Shayna WEATHER ANCHOR Unavailable Unavailable Fons, M Shayna WEATHER ANCHOR Unavailable Unavailable MAJAK, R MARY DPM Unavailable Unavailable MAJAK, R MARY DPM Unavailable Unavailable MAJAK, R MARY DPM Unavailable Unavailable MAJAK, R MARY DPM Unavailable Unavailable MAJAK, R MARY DPM Unavailable Unavailable MAJAK, R MARY DPM Unavailable Unavailable MAJAK, R MARY DPM Unavailable Unavailable MAJAK, R MARY DPM Unavailable Unavailable MAJAK, R MARY DPM Unavailable Unavailable MAJAK, R MARY DPM Unavailable Unavailable MAJAK, R MARY DPM Unavailable Unavailable MAJAK, R MARY DPM Unavailable Unavailable MAJAK, R MARY DPM Unavailable Unavailable MAJAK, R MARY DPM Unavailable Unavailable MAJAK, R MARY DPM Unavailable Unavailable MAJAK, R MARY DPM Unavailable Unavailable MAJAK, R MARY DPM Unavailable Unavailable MAJAK, R MARY DPM Unavailable Unavailable MAJAK, R MARY DPM Unavailable Unavailable MAJAK, R MARY DPM Unavailable Unavailable MAJAK, R MARY DPM Unavailable Unavailable MAJAK, R MARY DPM Unavailable Unavailable MAJAK, R MARY DPM Unavailable Unavailable MAJAK, R MARY DPM Unavailable Unavailable MAJAK, R MARY DPM Unavailable Unavailable MAJAK, R MARY DPM Unavailable Unavailable MAJAK, R MARY DPM Unavailable Unavailable MAJAK, R MARY DPM Unavailable Unavailable MAJAK, R MARY DPM Unavailable Unavailable MAJAK, R MARY DPM Unavailable Unavailable Sal, N Ne SKOOG OPERATOR Unavailable Unavailable [place]reg[place], N Ne SKOOG OPERATOR Unavailable Unavailable [place], N Ne SKOOG OPERATOR Unavailable Unavailable Sal, N Ne SKOOG OPERATOR Unavailable Unavailable [place], N Ne SKOOG OPERATOR Unavailable Unavailable [place], N Ne SKOOG OPERATOR Unavailable Unavailable Sal, N Ne SKOOG OPERATOR Unavailable Unavailable [place], N Ne SKOOG OPERATOR Unavailable Unavailable [place], N Ne SKOOG OPERATOR Unavailable Unavailable [place], N Ne SKOOG OPERATOR Unavailable Unavailable [place], N Ne SKOOG OPERATOR Unavailable Unavailable Sal, N Ne SKOOG OPERATOR Unavailable Unavailable Sal, N Ne SKOOG OPERATOR Unavailable Unavailable Sal, N Ne SKOOG OPERATOR Unavailable Unavailable [place], N Ne SKOOG OPERATOR Unavailable Unavailable Sal, N Ne SKOOG OPERATOR Unavailable Unavailable Sal, N Ne SKOOG OPERATOR Unavailable Unavailable Sal, N Ne SKOOG OPERATOR Unavailable Unavailable [place], N Ne SKOOG OPERATOR Unavailable Unavailable [place], N Ne SKOOG OPERATOR Unavailable Unavailable [place], N Ne SKOOG OPERATOR Unavailable Unavailable Sal, N Ne SKOOG OPERATOR Unavailable Unavailable [place], N Ne SKOOG OPERATOR Unavailable Unavailable [place], N Ne SKOOG OPERATOR Unavailable Unavailable [place], N Ne SKOOG OPERATOR Unavailable Unavailable [place], N Ne SKOOG OPERATOR Unavailable Unavailable Sal, N Ne SKOOG OPERATOR Unavailable Unavailable [place], N Ne SKOOG OPERATOR Unavailable Unavailable [place], N Ne SKOOG OPERATOR Unavailable Unavailable [place], N Ne SKOOG OPERATOR Unavailable Unavailable [place], N Ne SKOOG OPERATOR Unavailable Unavailable [place], M Shayna CITY WELLNESS COORDINATOR Unavailable Unavailable [place], M Shayna CITY WELLNESS COORDINATOR Unavailable Unavailable [place], M Shayna CITY WELLNESS COORDINATOR Unavailable Unavailable [place], M Shayna CITY WELLNESS COORDINATOR Unavailable Unavailable [place], M Shayna CITY WELLNESS COORDINATOR Unavailable Unavailable [place], M Shayna CITY WELLNESS COORDINATOR Unavailable Unavailable [place], M Shayna CITY WELLNESS COORDINATOR Unavailable Unavailable [place], M Shanya CITY WELLNESS COORDINATOR Unavailable Unavailable [place], M Shayna CITY WELLNESS COORDINATOR Unavailable Unavailable [place], M Shayna CITY WELLNESS COORDINATOR Unavailable Unavailable [place], M Shayna CITY WELLNESS COORDINATOR Unavailable Unavailable [place], M Shayna CITY WELLNESS COORDINATOR Unavailable Unavailable [place], M Shayna CITY WELLNESS COORDINATOR Unavailable Unavailable [place], M Shayna CITY WELLNESS COORDINATOR Unavailable Unavailable [place], M Shayna CITY WELLNESS COORDINATOR Unavailable Unavailable [place], M Shayna CITY WELLNESS COORDINATOR Unavailable Unavailable [place], M Shayna CITY WELLNESS COORDINATOR Unavailable Unavailable [place], M Shayna CITY WELLNESS COORDINATOR Unavailable Unavailable [place], M Shayna CITY WELLNESS COORDINATOR Unavailable Unavailable [place], M Shayna CITY WELLNESS COORDINATOR Unavailable Unavailable [place], M Shayna CITY WELLNESS COORDINATOR Unavailable Unavailable [place], M Shayna CITY WELLNESS COORDINATOR Unavailable Unavailable [place], M Shayna CITY WELLNESS COORDINATOR Unavailable Unavailable [place], M Shayna CITY WELLNESS COORDINATOR Unavailable Unavailable [place], M Shayna CITY WELLNESS COORDINATOR Unavailable Unavailable [place], M Shayna CITY WELLNESS COORDINATOR Unavailable Unavailable [place], M Shayna CITY WELLNESS COORDINATOR Unavailable Unavailable [place], M Shayna CITY WELLNESS COORDINATOR Unavailable Unavailable [place], M Shayna CITY WELLNESS COORDINATOR Unavailable Unavailable [place], M Shayna CITY WELLNESS COORDINATOR Unavailable Unavailable [place], M Shayna CITY WELLNESS COORDINATOR Unavailable Unavailable [place], M Shayna CITY WELLNESS COORDINATOR Unavailable Unavailable [place], M Shayna CITY WELLNESS COORDINATOR Unavailable Unavailable [place], M Shayna CITY WELLNESS COORDINATOR Unavailable Unavailable [place], M Shayna CITY WELLNESS COORDINATOR Unavailable Unavailable [place], M Shayna CITY WELLNESS COORDINATOR Unavailable Unavailable [place], M Shayna CITY WELLNESS COORDINATOR Unavailable Unavailable [place], M Shayna CITY WELLNESS COORDINATOR Unavailable Unavailable [place], M Shayna CITY WELLNESS COORDINATOR Unavailable Unavailable [place], M Shayna CITY WELLNESS COORDINATOR Unavailable Unavailable [place], M Shayna CITY WELLNESS COORDINATOR Unavailable Unavailable [place], M Shayna CITY WELLNESS COORDINATOR Unavailable Unavailable [place], M Shayna CITY WELLNESS COORDINATOR Unavailable Unavailable [place], M Shayna CITY WELLNESS COORDINATOR Unavailable Unavailable [place], M Shayna CITY WELLNESS COORDINATOR Unavailable Unavailable [place], M Shayna CITY WELLNESS COORDINATOR Unavailable Unavailable [place], M Sahyna CITY WELLNESS COORDINATOR Unavailable Unavailable [place], M Shayna CITY WELLNESS COORDINATOR Unavailable Unavailable [place], M Shayna CITY WELLNESS COORDINATOR Unavailable Unavailable [place], M Shayna CITY WELLNESS COORDINATOR Unavailable Unavailable [place], M Shayna CITY WELLNESS COORDINATOR Unavailable Unavailable [place], M Shayna CITY WELLNESS COORDINATOR Unavailable Unavailable [place], M Shayna CITY WELLNESS COORDINATOR Unavailable Unavailable [place], M Shayna CITY WELLNESS COORDINATOR Unavailable Unavailable [place], M Shayna CITY WELLNESS COORDINATOR Unavailable Unavailable Mile, Cait WEATHER ANCHOR Unavailable Unavailable Mile, Cait WEATHER ANCHOR Unavailable Unavailable Mile, Cait WEATHER ANCHOR Unavailable Unavailable Mile, Cait WEATHER ANCHOR Unavailable Unavailable Mile, Cait WEATHER ANCHOR Unavailable Unavailable Mile, Cait WEATHER ANCHOR Unavailable Unavailable Mile, Cait WEATHER ANCHOR Unavailable Unavailable Mile, Cait WEATHER ANCHOR Unavailable Unavailable Mile, Cait WEATHER ANCHOR Unavailable Unavailable Mile, Cait WEATHER ANCHOR Unavailable Unavailable Mile, Cait WEATHER ANCHOR Unavailable Unavailable Mile, Cait WEATHER ANCHOR Unavailable Unavailable Mile, Cait WEATHER ANCHOR Unavailable Unavailable Mile, Cait WEATHER ANCHOR Unavailable Unavailable Mile, Cait WEATHER ANCHOR Unavailable Unavailable Mile, Cait WEATHER ANCHOR Unavailable Unavailable Mile, Cait WEATHER ANCHOR Unavailable Unavailable Mile, Cait WEATHER ANCHOR Unavailable Unavailable Mile, Cait WEATHER ANCHOR Unavailable Unavailable Mile, Cait WEATHER ANCHOR Unavailable Unavailable Mile, Cait WEATHER ANCHOR Unavailable Unavailable Mile, Cait WEATHER ANCHOR Unavailable Unavailable Mile, Cait WEATHER ANCHOR Unavailable Unavailable Mile, Cait WEATHER ANCHOR Unavailable Unavailable Mile, Cait WEATHER ANCHOR Unavailable Unavailable Mile, Cait WEATHER ANCHOR Unavailable Unavailable Mile, Cait WEATHER ANCHOR Unavailable Unavailable NISHI, J Precious ANP Unavailable Unavailable NISHI, J Precious ANP Unavailable Unavailable NISHI, J Precious ANP Unavailable Unavailable NISHI, J Precious ANP Unavailable Unavailable NISHI, J Precious ANP Unavailable Unavailable NISHI, J Precious ANP Unavailable Unavailable NISHI, J Precious ANP Unavailable Unavailable NISHI, J Precious ANP Unavailable Unavailable NISHI, J Precious ANP Unavailable Unavailable NISHI, J Precious ANP Unavailable Unavailable NISHI, J Precious ANP Unavailable Unavailable NISHI, J Precious ANP Unavailable Unavailable NISHI, J Precious ANP Unavailable Unavailable NISHI, J Precious ANP Unavailable Unavailable NISHI, J Precious ANP Unavailable Unavailable NISHI, J Precious ANP Unavailable Unavailable NISHI, J Precious ANP Unavailable Unavailable NISHI, J Precious ANP Unavailable Unavailable NISHI, J Precious ANP Unavailable Unavailable NISHI, J Precious ANP Unavailable Unavailable NISHI, J Precious ANP Unavailable Unavailable NISHI, J Precious ANP Unavailable Unavailable NISHI, J Precious ANP Unavailable Unavailable NISHI, J Precious ANP Unavailable Unavailable NISHI, J Precious ANP Unavailable Unavailable NISHI, J Precious ANP Unavailable Unavailable NISHI, J Precious ANP Unavailable Unavailable NISHI, J Precious ANP Unavailable Unavailable NISHI, J Precious ANP Unavailable Unavailable NISHI, J Precious ANP Unavailable Unavailable NISHI, J Precious ANP Unavailable Unavailable NISHI, J Precious ANP Unavailable Unavailable NISHI, J Precious ANP Unavailable Unavailable NISHI, J Precious ANP Unavailable Unavailable NISHI, J Precious ANP Unavailable Unavailable NISHI, J Precious ANP Unavailable Unavailable NISHI, J Precious ANP Unavailable Unavailable NISHI, J Precious ANP Unavailable Unavailable NISHI, J Precious ANP Unavailable Unavailable NISHI, J Precious ANP Unavailable Unavailable NISHI, J Precious ANP Unavailable Unavailable NISHI, J Precious ANP Unavailable Unavailable NISHI, J Precious ANP Unavailable Unavailable NISHI, J Precious ANP Unavailable Unavailable NISHI, J Precious ANP Unavailable Unavailable NISHI, J Precious ANP Unavailable Unavailable NISHI, J Precious ANP Unavailable Unavailable NISHI, J Precious ANP Unavailable Unavailable NISHI, J Precious ANP Unavailable Unavailable NISHI, J Precious ANP Unavailable Unavailable NISHI, J Precious ANP Unavailable Unavailable NISHI, J Precious ANP Unavailable Unavailable NISHI, J Precious ANP Unavailable Unavailable NISHI, J Precious ANP Unavailable Unavailable NISHI, J Precious ANP Unavailable Unavailable NISHI, J Precious ANP Unavailable Unavailable NISHI, J Precious ANP Unavailable Unavailable NISHI, J Precious ANP Unavailable Unavailable NISHI, J Precious ANP Unavailable Unavailable NISHI, J Precious ANP Unavailable Unavailable NISHI, J Precious ANP Unavailable Unavailable NISHI, J Precious ANP Unavailable Unavailable NISHI, J Precious ANP Unavailable Unavailable NISHI, J Precious ANP Unavailable Unavailable NISHI, J Precious ANP Unavailable Unavailable NISHI, J Precious ANP Unavailable Unavailable Re-disclosure Warning The records that you are about to access may contain information from federally-assisted alcohol or drug abuse programs. If such information is present, then the following federally mandated warning applies: This information has been disclosed to you from records protected by federal confidentiality rules (42 CFR part 2). The federal rules prohibit you from making any further disclosure of this information unless further disclosure is expressly permitted by the written consent of the person to whom it pertains or as otherwise permitted by 42 CFR part 2. A general authorization for the release of medical or other information is NOT sufficient for this purpose. The Federal rules restrict any use of the information to criminally investigate or prosecute any alcohol or drug abuse patient.The records that you are about to access may contain highly sensitive health information, the redisclosure of which is protected by Article 27-F of the [facility] Public Health law. If you continue you may have access to information: Regarding HIV / AIDS; Provided by facilities licensed or operated by the [facility] Office of Mental Health; or Provided by the [facility] Office for People With Developmental Disabilities. If such information is present, then the following [facility] mandated warning applies: This information has been disclosed to you from confidential records which are protected by state law. State law prohibits you from making any further disclosure of this information without the specific written consent of the person to whom it pertains, or as otherwise permitted by law. Any unauthorized further disclosure in violation of state law may result in a fine or skilled nursing sentence or both. A general authorization for the release of medical or other information is NOT sufficient authorization for further disc losure. Family History Family Member Name Family Member Gender Family Member Status Date o f Status Description Data Source(s) Unknown Male Problem [facility] ([facility]) Unknown Male Problem [facility] ([facility] () - age 69 Encounters Encounter Providers Location Date Indications Data Source(s ) Outpatient Attender: Precious Clark 08:00:00 AM EST [facility] ([facility] ) Outpatient Attender: Ne LAIRD.[email or web address] 02/07/2020 12 :00:00 AM EDT [facility] Outpatient Attender: Shayna GOODRICH Juan M Eduardo 12/19 03:00:00 PM EDT [facility] ([facility] ) Outpatient Attender: MARY BRUNO DPM [facility] 11/16 01:30:00 PM EDT [facility] ([facility] Outpatient Referrer: Cait MIKE 11/10/2019 02:31:00 PM EDT [facility] Outpatient Attender: Shayna Jorge WEATHER ANCHOR [email or web address] 0 12:00:00 AM EST - 07/05/2019 02:16:07 PM EST [facility] Immunizations Vaccine Date Status Description Data Source(s) Influenza, injectable, MDCK, preservative free, viet valent 04/03/2020 07:58:00 AM EST completed [facility] ([facility]) Medications Medication Brand Name Start Date Product Form Dose Route Admi nistrative Instructions Pharmacy Instructions Status Indications Reaction Description Data Source(s) 20 mEq 06/01/2020 12:00:00 AM EST tablet,ER particles/cry stals 60 TAKE ONE TABLET BY MOUTH EVERY DAY TAKE ONE TABLET BY MOUTH EVERY DAY SOLD: 06/02/2020 [facility] Atenolol 50 MG Oral Tablet ATENOLOL 05/28/2020 12:00:00 AM EST tablet 90 TAKE ONE TABLET BY MOUTH EVERY MORNING TAKE ONE TABLET BY MOUTH EVERY MORNING SOLD: 05/30/2020 [facility] gabapentin 800 MG Oral Tablet GABAPENTIN 05/28/2020 12:00:00 AM EST t ablet 180 TAKE ONE TABLET BY MOUTH TWO TIMES A DAY TAKE ONE TABL ET BY MOUTH TWO TIMES A DAY SOLD: 05/30/2020 [facility] 112 mcg 05/26/2020 12:00:00 AM EST tablet 90 TAKE ONE TABLET BY MOUTH EVERY DAY BEFORE BREAKFAST ON AN EMPTY STOMACH TAKE ONE TABLET BY MOUTH EVERY DAY BEFORE BREAKFAST ON AN EMPTY STOMACH SOLD: 05/26/2020 [facility] 40 mg 05/26/2020 12:00:00 AM EST tablet 90 TAKE ONE TABLET BY MOUTH EVERY DAY TAKE ONE TABLET BY MOUTH EVERY DAY SOLD: 05/26/2020 [facility] 75 mg 05/22/2020 12:00:00 AM EST tablet 90 TAKE ONE TABLET BY MOUTH EVERY DAY TAKE ONE TABLET BY MOUTH EVERY DAY SOLD: 05/26/2020 [facility] 1 gram 04/25/2020 12:00:00 AM EST capsule 30 TAKE 1 CAPSULE BY MOUTH AT DINNER TAKE 1 CAPSULE BY MOUTH AT DINNER SOLD: 04/29/2020 [facility] 1 gram 04/25/2020 12:00:00 AM EST capsule 30 TAKE 1 CAPSULE BY MOUTH AT DINNER TAKE 1 CAPSULE BY MOUTH AT DINNER SOLD: 05/26/2020 [facility] 200 unit/mL (3 mL) 04/17/2020 12:00:00 AM EST insulin pen 60 INJECT 70 UNITS UNDER THE SKIN TWO TIMES A DAY INJECT 70 UNITS UNDER THE SKIN TWO TIMES A DAY SOLD: 04/18/2020 [facility] icosapent ethyl 1000 MG Oral Capsule [Vascepa] Vascepa 04/03/2020 12:00:00 AM EST active [facility] ([facility]) Administration Of Flu Vaccine 04/03/2020 12:00:00 AM EST completed [facility] ([facility]) Medication administered onsite 0.5 ML dulaglutide 3 MG/ML Auto-Injector [Trulicity] Narcisoi ty 04/03/2020 12:00:00 AM EST active M [facility]ENT ([facility]) Adjustable Commode 3-In-1 04/03/2020 12:00:00 AM EST active [facility] ([facility]) 1.5 mg/0.5 mL 04/03/2020 12:00:00 AM EST pen injector 6 INJECT CONTENTS OF 1 PEN SUBCUTANEOUSLY ONCE WEEKLY INJECT CONTENTS OF 1 PEN SUBCUTANEOUSLY ONCE WEEKLY SOLD: 04/07/2020 [facility] 5 mg 03/16/2020 12:00:00 AM EDT tablet 60 TAKE ONE TABLET BY MOUTH THREE TIMES A DAY NEEDED, MAXIMUM DAILY DOSE = THREE TABLETS TAKE ONE TABLET BY MOUTH THREE TIMES A DAY NEEDED, MAXIMUM DAILY DOSE = THREE TABLETS SOLD: 05/25/2020 [facility] Cyclobenzaprine hydrochloride 5 MG Oral Tablet CYCLOBENZAPRI NE HCL 03/16/2020 12:00:00 AM EDT tablet 60 TAKE ONE TABLET BY MOUTH THREE TIMES A DAY NEEDED, MAXIMUM DAILY DOSE = THREE TABLETS TAKE ONE TABLET BY MOUTH THREE TIMES A DAY NEEDED, MAXIMUM DAILY DOSE = THREE TABLETS SOLD: 03/16/2020 [facility] 10 mcg 03/16/2020 12:00:00 AM EDT tablet 24 INSERT 1 TABLET VAGINALLY TWICE WEEKLY INSERT 1 TABLET VAGINALLY TWICE WEEKLY SOLD: 03/16/2020 [facility] pantoprazole 40 MG Delayed Release Oral Tablet PANTOPRAZOLE SODIUM 03/16/2020 12:00:00 AM EDT tablet,delayed release (DR/EC) 90 T DEBORAH ONE TABLET BY MOUTH EVERY DAY TAKE ONE TABLET BY MOUTH EVERY DAY SOLD: 03/16/2020 [facility] 32 gauge x 1/6" 03/16/2020 12:00:00 AM EDT needle 270 USE THREE TIMES A DAY OR DIRECTED FOR INSULIN USE THREE TIMES A DAY OR DIRECTED FOR INSULIN SOLD: 03/16/2020 [facility] 145 mg 03/16/2020 12:00:00 AM EDT tablet 90 TAKE ONE TABLET BY MOUTH EVERY DAY TAKE ONE TABLET BY MOUTH EVERY DAY SOLD: 03/16/2020 [facility] Cyclobenzaprine hydrochloride 5 MG Oral Tablet CYCLOBENZAPRI NE HCL 03/16/2020 12:00:00 AM EDT tablet 60 TAKE ONE TABLET BY MOUTH THREE TIMES A DAY NEEDED, MAXIMUM DAILY DOSE = THREE TABLETS TAKE ONE TABLET BY MOUTH THREE TIMES A DAY NEEDED, MAXIMUM DAILY DOSE = THREE TABLETS SOLD: 04/18/2020 [facility] INCONTINENCE PAD,LINER,DISP 03/16/2020 12:00:00 AM EDT pad 99 USE DIRECTED USE DIRECTED SOLD: 04/29/2020 [facility] 145 mg 03/16/2020 12:00:00 AM EDT tablet 3 TAKE ONE TABLET BY MOUTH EVERY DAY TAKE ONE TABLET BY MOUTH EVERY DAY SOLD: 06/13/2020 [facility] 10 mcg 03/16/2020 12:00:00 AM EDT tablet 24 INSERT 1 TABLET VAGINALLY TWICE WEEKLY INSERT 1 TABLET VAGINALLY TWICE WEEKLY SOLD: 06/07/2020 [facility] 40 mg 03/16/2020 12:00:00 AM EDT tablet 90 TAKE ONE TABLET BY MOUTH EVERY DAY TAKE ONE TABLET BY MOUTH EVERY DAY SOLD: 03/16/2020 [facility] INCONTINENCE PAD,LINER,DISP 03/16/2020 12:00:00 AM EDT pad 99 USE DIRECTED USE DIRECTED SOLD: 03/17/2020 [facility] Atenolol 50 MG Oral Tablet ATENOLOL 03/16/2020 12:00:00 AM EDT tablet 90 TAKE ONE TABLET BY MOUTH EVERY MORNING TAKE ONE TABLET BY MOUTH EVERY MORNING SOLD: 03/16/2020 [facility] Cyclobenzaprine hydrochloride 5 MG Oral Tablet CYCLOBENZAPRI NE HCL 03/16/2020 12:00:00 AM EDT tablet 60 TAKE ONE TABLET BY MOUTH THREE TIMES A DAY NEEDED, MAXIMUM DAILY DOSE = THREE TABLETS TAKE ONE TABLET BY MOUTH THREE TIMES A DAY NEEDED, MAXIMUM DAILY DOSE = THREE TABLETS SOLD: 06/02/2020 [facility] pantoprazole 40 MG Delayed Release Oral Tablet PANTOPRAZOLE SODIUM 03/16/2020 12:00:00 AM EDT tablet,delayed release (DR/EC) 90 T DEBORAH ONE TABLET BY MOUTH EVERY DAY TAKE ONE TABLET BY MOUTH EVERY DAY SOLD: 06/13/2020 [facility] 32 gauge x 1/6" 03/16/2020 12:00:00 AM EDT needle 270 USE THREE TIMES A DAY OR DIRECTED FOR INSULIN USE THREE TIMES A DAY OR DIRECTED FOR INSULIN SOLD: 06/13/2020 [facility] INCONTINENCE PAD,LINER,DISP 03/16/2020 12:00:00 AM EDT pad 99 USE DIRECTED USE DIRECTED SOLD: 06/07/2020 [facility] 75 mg 03/16/2020 12:00:00 AM EDT tablet 90 TAKE ONE TABLET BY MOUTH EVERY DAY TAKE ONE TABLET BY MOUTH EVERY DAY SOLD: 03/16/2020 [facility] 20 mEq 02/17/2020 12:00:00 AM EDT tablet,ER particles/cry stals 60 TAKE ONE TABLET BY MOUTH EVERY DAY TAKE ONE TABLET BY MOUTH EVERY DAY SOLD: 02/21/2020 [facility] 20 mEq 02/17/2020 12:00:00 AM EDT tablet,ER particles/cry stals 60 TAKE ONE TABLET BY MOUTH EVERY DAY TAKE ONE TABLET BY MOUTH EVERY DAY SOLD: 04/20/2020 [facility] 100 unit/mL 01/16/2020 12:00:00 AM EDT insulin pen 15 INJECT 20 UNITS UNDER THE SKIN BEFORE LUNCH AND DINNER INJECT 20 UNITS UNDER THE SKIN BEFORE AJAY NCH AND DINNER SOLD: 01/19/2020 [facility] 100 unit/mL 01/16/2020 12:00:00 AM EDT insulin pen 15 INJECT 20 UNITS UNDER THE SKIN BEFORE LUNCH AND DINNER INJECT 20 UNITS UNDER THE SKIN BEFORE AJAY NCH AND DINNER SOLD: 04/07/2020 [facility] 100 unit/mL 01/16/2020 12:00:00 AM EDT insulin pen 15 INJECT 20 UNITS UNDER THE SKIN BEFORE LUNCH AND DINNER INJECT 20 UNITS UNDER THE SKIN BEFORE AJAY NCH AND DINNER SOLD: 05/16/2020 [facility] 100 unit/mL 01/16/2020 12:00:00 AM EDT insulin pen 15 INJECT 20 UNITS UNDER THE SKIN BEFORE LUNCH AND DINNER INJECT 20 UNITS UNDER THE SKIN BEFORE AJAY N[facility] AND DINNER SOLD: 02/24/2020 [facility] 1,250 mcg (50,000 unit) 12/30/2019 12:00:00 AM EDT capsule 24 TAKE 2 CAPSULES BY MOUTH WEEKLY TAKE 2 CAPSULES BY MOUTH WEEKLY SOLD: 04/07/2020 [facility] 1,250 mcg (50,000 unit) 12/30/2019 12:00:00 AM EDT capsule 24 TAKE 2 CAPSULES BY MOUTH WEEKLY TAKE 2 CAPSULES BY MOUTH WEEKLY SOLD: 12/30/2019 [facility] 145 mg 12/26/2019 12:00:00 AM EDT tablet 90 TAKE ONE TABLET BY MOUTH EVERY DAY TAKE ONE TABLET BY MOUTH EVERY DAY SOLD: 12/30/2019 [facility] Fenofibrate 145 MG Oral Tablet Fenofibrate 12/26/2019 12:00:00 AM EDT ORAL active [facility] ([facility]) Rosuvastatin calcium 40 MG Oral Tablet ROSUVASTATIN CALCIUM 12/22/2019 12:00:00 AM EDT tablet 90 TAKE ONE TABLET BY MOUTH AMBERLY TAKE ONE TABLET BY MOUTH EVERY DAY SOLD: 12/22/2019 [facility] 50 mg 12/22/2019 12:00:00 AM EDT tablet 90 TAKE ONE TABLET BY MOUTH EVERY MORNING TAKE ONE TABLET BY MOUTH EVERY MORNING SOLD: 12/22/2019 [facility] Rosuvastatin calcium 40 MG Oral Tablet Rosuvastatin Calcium 12/22/2019 12:00:00 AM EDT active [facility] ([facility]) 112 mcg 12/22/2019 12:00:00 AM EDT tablet 90 TAKE ONE TABLET BY MOUTH EVERY MORNING ON AN EMPTY STOMACH BEFORE BREAKFAST TAKE ONE TABLET BY MOUTH EVERY MORNING ON AN EMPTY STOMACH BEFORE BREAKFAST SOLD: 12/22/2019 [facility] 0.05 % 12/22/2019 12:00:00 AM EDT cream 60 APPLY A SMALL AMOUNT TO RASH TWO TIMES A DAY FOR INTERMITTENTLY APPLY A SMALL AMOUNT TO RASH TWO TIMES A DAY FOR INTERMITTENTLY SOLD: 12/22/2019 [facility] Rosuvastatin calcium 40 MG Oral Tablet ROSUVASTATIN CALCIUM 12/22/2019 12:00:00 AM EDT tablet 90 TAKE ONE TABLET BY MOUTH AMBERLY DAY TAKE ONE TABLET BY MOUTH EVERY DAY SOLD: 03/19/2020 [facility] 40 mg 12/22/2019 12:00:00 AM EDT tablet 90 TAKE ONE TABLET BY MOUTH EVERY DAY TAKE ONE TABLET BY MOUTH EVERY DAY SOLD: 12/22/2019 [facility] 112 mcg 12/22/2019 12:00:00 AM EDT tablet 90 TAKE ONE TABLET BY MOUTH EVERY MORNING ON AN EMPTY STOMACH BEFORE BREAKFAST TAKE ONE TABLET BY MOUTH EVERY MORNING ON AN EMPTY STOMACH BEFORE BREAKFAST SOLD: 03/19/2020 [facility] Rosuvastatin calcium 40 MG Oral Tablet ROSUVASTATIN CALCIUM 12/22/2019 12:00:00 AM EDT tablet 90 TAKE ONE TABLET BY MOUTH AMBERLY TAKE ONE TABLET BY MOUTH EVERY DAY SOLD: 06/13/2020 [facility] 0.4-0.3 % 12/15/2019 12:00:00 AM EDT drops 15 INSTILL ONE DROP IN EACH EYE DAILY NEEDED FOR BURNING/ GRITTY EYES (TO LAST 30 DAYS) INSTILL ONE DROP IN EACH EYE DAILY NEEDED FOR BURNING/ GRITTY EYES (TO LAST 30 DAYS) SOLD: 01/28/2020 [facility] 0.4-0.3 % 12/15/2019 12:00:00 AM EDT drops 15 INSTILL ONE DROP IN EACH EYE DAILY NEEDED FOR BURNING/ GRITTY EYES (TO LAST 30 DAYS) INSTILL ONE DROP IN EACH EYE DAILY NEEDED FOR BURNING/ GRITTY EYES (TO LAST 30 DAYS) SOLD: 04/20/2020 [facility] 0.4-0.3 % 12/15/2019 12:00:00 AM EDT drops 15 INSTILL ONE DROP IN EACH EYE DAILY NEEDED FOR BURNING/ GRITTY EYES (TO LAST 30 DAYS) INSTILL ONE DROP IN EACH EYE DAILY NEEDED FOR BURNING/ GRITTY EYES (TO LAST 30 DAYS) SOLD: 12/21/2019 [facility] 200 unit/mL (3 mL) 11/04/2019 12:00:00 AM EDT insulin pen 54 INJECT 135 UNITS UNDER THE SKIN ONCE DAILY INJECT 135 UNITS UNDER THE SKIN ONCE DAILY SOLD: 01/28/2020 [facility] 200 unit/mL (3 mL) 11/04/2019 12:00:00 AM EDT insulin pen 54 INJECT 135 UNITS UNDER THE SKIN ONCE DAILY INJECT 135 UNITS UNDER THE SKIN ONCE DAILY SOLD: 11/04/2019 [facility] Cyclobenzaprine hydrochloride 5 MG Oral Tablet CYCLOBENZAPRI NE HCL 10/22/2019 12:00:00 AM EDT tablet 60 TAKE ONE TABLET BY MOUTH THREE TIMES A DAY NEEDED , MAXIMUM DAILY DOSE = THREE TABLETS TAKE ONE TABLET BY MOUTH THREE TIMES A D AY NEEDED , MAXIMUM DAILY DOSE = THREE TABLETS SOLD: 01/19/2020 [facility] Cyclobenzaprine hydrochloride 5 MG Oral Tablet CYCLOBENZAPRI NE HCL 10/22/2019 12:00:00 AM EDT tablet 60 TAKE ONE TABLET BY MOUTH THREE TIMES A DAY NEEDED , MAXIMUM DAILY DOSE = THREE TABLETS TAKE ONE TABLET BY MOUTH THREE TIMES A D AY NEEDED , MAXIMUM DAILY DOSE = THREE TABLETS SOLD: 02/24/2020 [facility] Cyclobenzaprine hydrochloride 5 MG Oral Tablet CYCLOBENZAPRI NE HCL 10/22/2019 12:00:00 AM EDT tablet 60 TAKE ONE TABLET BY MOUTH THREE TIMES A DAY NEEDED , MAXIMUM DAILY DOSE = THREE TABLETS TAKE ONE TABLET BY MOUTH THREE TIMES A D AY NEEDED , MAXIMUM DAILY DOSE = THREE TABLETS SOLD: 11/12/2019 [facility] Cyclobenzaprine hydrochloride 5 MG Oral Tablet CYCLOBENZAPRI NE HCL 10/22/2019 12:00:00 AM EDT tablet 60 TAKE ONE TABLET BY MOUTH THREE TIMES A DAY NEEDED , MAXIMUM DAILY DOSE = THREE TABLETS TAKE ONE TABLET BY MOUTH THREE TIMES A D AY NEEDED , MAXIMUM DAILY DOSE = THREE TABLETS SOLD: 12/13/2019 [facility] 5 mg 10/22/2019 12:00:00 AM EDT tablet 60 TAKE ONE TABLET BY MOUTH THREE TIMES A DAY NEEDED , MAXIMUM DAILY DOSE = THREE TABLETS TAKE ONE TABLET BY MOUTH THREE TIMES A DAY NEEDED , MAXIMUM DAILY DOSE = THREE TABLETS SOLD: 10/27/2019 [facility] 10 mcg 09/28/2019 12:00:00 AM EDT tablet 24 INSERT ONE TABLET VAGINALLY TWICE A WEEK INSERT ONE TABLET VAGINALLY TWICE A WEEK SOLD: 12/21/2019 [facility] 40 mg 09/28/2019 12:00:00 AM EDT tablet 90 TAKE ONE TABLET BY MOUTH EVERY DAY TAKE ONE TABLET BY MOUTH EVERY DAY SOLD: 09/29/2019 [facility] 50 mg 09/28/2019 12:00:00 AM EDT tablet 90 TAKE ONE TABLET BY MOUTH EVERY MORNING TAKE ONE TABLET BY MOUTH EVERY MORNING SOLD: 09/29/2019 [facility] 40 mg 09/28/2019 12:00:00 AM EDT tablet,delayed release (DR/EC) 90 TAKE ONE TABLET BY MOUTH EVERY DAY TAKE ONE TABLET BY MOUTH EVERY DAY SOLD: 09/29/2019 [facility] pantoprazole 40 MG Delayed Release Oral Tablet PANTOPRAZOLE SODIUM 09/28/2019 12:00:00 AM EDT tablet,delayed release (DR/EC) 90 T DEBORAH ONE TABLET BY MOUTH EVERY DAY TAKE ONE TABLET BY MOUTH EVERY DAY SOLD: 12/21/2019 [facility] 40 mg 09/28/2019 12:00:00 AM EDT tablet,delayed release (DR/EC) 90 TAKE ONE TABLET BY MOUTH EVERY DAY TAKE ONE TABLET BY MOUTH EVERY DAY SOLD: 09/29/2019 [facility] 10 mcg 09/28/2019 12:00:00 AM EDT tablet 24 INSERT ONE TABLET VAGINALLY TWICE A WEEK INSERT ONE TABLET VAGINALLY TWICE A WEEK SOLD: 09/29/2019 [facility] 4 mg 09/18/2019 12:00:00 AM EDT tablet,disintegrating 1 6 DISSOLVE 1 TABLET ON TONGUE EVERY 6-8 HOURS NEEDED FOR NAUSEA AND VOMITING DISSOLVE 1 TABLET ON TONGUE EVERY 6-8 HOURS NEEDED FOR NAUSEA AND VOMITING SOLD: 09/18/2019 [facility] 1,250 mcg (50,000 unit) 07/26/2019 12:00:00 AM EDT capsule 24 TAKE TWO CAPSULES BY MOUTH ONCE WEEKLY TAKE TWO CAPSULES BY MOUTH ONCE WEEKLY SOLD: 07/28/2019 [facility] 1,250 mcg (50,000 unit) 07/26/2019 12:00:00 AM EDT capsule 24 TAKE TWO CAPSULES BY MOUTH ONCE WEEKLY TAKE TWO CAPSULES BY MOUTH ONCE WEEKLY SOLD: 10/21/2019 [facility] 150 mg 07/07/2019 12:00:00 AM EST tablet 2 TAKE ONE TABLET BY MOUTH ONCE , MAY REPEAT IN 3 DAYS TAKE ONE TABLET BY MOUTH ONCE , MAY REPEAT IN 3 DAYS S OLD: 09/18/2019 [facility] 5 mg 07/07/2019 12:00:00 AM EST tablet 60 TAKE ONE TABLET BY MOUTH THREE TIMES A DAY NEEDED , MAXIMUM DAILY DOSE = 3 TABLETS TAKE ONE TABLET BY MOUTH THREE TIMES A DAY NEEDED , MAXIMUM DAILY DOSE = 3 TABLETS SOLD: 07/17/2019 [facility] 5 mg 07/07/2019 12:00:00 AM EST tablet 60 TAKE ONE TABLET BY MOUTH THREE TIMES A DAY NEEDED , MAXIMUM DAILY DOSE = 3 TABLETS TAKE ONE TABLET BY MOUTH THREE TIMES A DAY NEEDED , MAXIMUM DAILY DOSE = 3 TABLETS SOLD: 07/28/2019 [facility] 150 mg 07/07/2019 12:00:00 AM EST tablet 2 TAKE ONE TABLET BY MOUTH ONCE , MAY REPEAT IN 3 DAYS TAKE ONE TABLET BY MOUTH ONCE , MAY REPEAT IN 3 DAYS S OLD: 12/13/2019 [facility] 150 mg 07/07/2019 12:00:00 AM EST tablet 2 TAKE ONE TABLET BY MOUTH ONCE , MAY REPEAT IN 3 DAYS TAKE ONE TABLET BY MOUTH ONCE , MAY REPEAT IN 3 DAYS S OLD: 11/10/2019 [facility] 5 mg 07/07/2019 12:00:00 AM EST tablet 60 TAKE ONE TABLET BY MOUTH THREE TIMES A DAY NEEDED , MAXIMUM DAILY DOSE = 3 TABLETS TAKE ONE TABLET BY MOUTH THREE TIMES A DAY NEEDED , MAXIMUM DAILY DOSE = 3 TABLETS SOLD: 08/29/2019 [email or web address] Fluconazole 150 MG Oral Tablet [Diflucan] Diflucan 07/07/2019 1 2:00:00 AM EST ORAL completed [facility] ([facility]) 5 mg 07/07/2019 12:00:00 AM EST tablet 60 TAKE ONE TABLET BY MOUTH THREE TIMES A DAY NEEDED , MAXIMUM DAILY DOSE = 3 TABLETS TAKE ONE TABLET BY MOUTH THREE TIMES A DAY NEEDED , MAXIMUM DAILY DOSE = 3 TABLETS SOLD: 09/29/2019 [facility] 150 mg 07/07/2019 12:00:00 AM EST tablet 2 TAKE ONE TABLET BY MOUTH ONCE , MAY REPEAT IN 3 DAYS TAKE ONE TABLET BY MOUTH ONCE , MAY REPEAT IN 3 DAYS S OLD: 07/07/2019 [facility] Poise Ultimate Absorbency 07/05/2019 12:00:00 AM EST active [facility] ([facility]) Ergocalciferol 97576 UNT Oral Capsule [Drisdol] Drisdol 07/04/2019 12:00:00 AM EST active [facility] ([facility]) 20 mg 07/03/2019 12:00:00 AM EST tablet 90 TAKE ONE TABLET BY MOUTH EVERY DAY TAKE ONE TABLET BY MOUTH EVERY DAY SOLD: 09/29/2019 [facility] 20 mg 07/03/2019 12:00:00 AM EST tablet 90 TAKE ONE TABLET BY MOUTH EVERY DAY TAKE ONE TABLET BY MOUTH EVERY DAY SOLD: 07/03/2019 [facility] INCONTINENCE PAD,LINER,DISP 07/02/2019 12:00:00 AM EST Pad 60 USE DIRECTED AND CHANGE NEEDED (TWO TIMES A NIGHT) USE DIRECTED AND CHANGE NEEDED (TWO TIMES A NIGHT) SOLD: 07/03/2019 [facility] INCONTINENCE PAD,LINER,DISP 07/02/2019 12:00:00 AM EST Pad 60 USE DIRECTED AND CHANGE NEEDED (TWO TIMES A NIGHT) USE DIRECTED AND CHANGE NEEDED (TWO TIMES A NIGHT) SOLD: 07/28/2019 [facility] Poise Pads Maximum Absorbency Long 07/01/2019 12:00:00 AM EST completed [facility] ([facility]) Prolia (denosumab) 60mg,SC injection, [facility]#[id number] 06/20/2019 12:00:00 AM EST completed [facility] ([facility]) Medication administered onsite Therapeutic Injection 06/20/2019 12:00:00 AM EST completed [facility] ([facility]) Medication administered onsite 20 mEq 06/15/2019 12:00:00 AM EST tablet,ER particles/cry stals 60 TAKE ONE TABLET BY MOUTH EVERY DAY TAKE ONE TABLET BY MOUTH EVERY DAY SOLD: 08/29/2019 [facility] 20 mEq 06/15/2019 12:00:00 AM EST tablet,ER particles/cry stals 60 TAKE ONE TABLET BY MOUTH EVERY DAY TAKE ONE TABLET BY MOUTH EVERY DAY SOLD: 06/16/2019 [facility] 20 mEq 06/15/2019 12:00:00 AM EST tablet,ER particles/cry stals 60 TAKE ONE TABLET BY MOUTH EVERY DAY TAKE ONE TABLET BY MOUTH EVERY DAY SOLD: 10/27/2019 [facility] 20 mEq 06/15/2019 12:00:00 AM EST tablet,ER particles/cry stals 60 TAKE ONE TABLET BY MOUTH EVERY DAY TAKE ONE TABLET BY MOUTH EVERY DAY SOLD: 12/21/2019 [facility] INCONTINENCE PAD,LINER,DISP 04/17/2019 12:00:00 AM EST Pad 240 USE DIRECTED USE DIRECTED SOLD: 04/19/2019 [facility] 10 mcg 04/12/2019 12:00:00 AM EST tablet 24 INSERT ONE TABLET VAGINALLY TWICE WEEKLY INSERT ONE TABLET VAGINALLY TWICE WEEKLY SOLD: 07/03/2019 [facility] 5 mg 04/11/2019 12:00:00 AM EST tablet 60 TAKE ONE TABLET BY MOUTH THREE TIMES A DAY NEEDED TAKE ONE TABLET BY MOUTH THREE TIMES A DAY NEEDED S OLD: 05/19/2019 [facility] 5 mg 04/11/2019 12:00:00 AM EST tablet 60 TAKE ONE TABLET BY MOUTH THREE TIMES A DAY NEEDED TAKE ONE TABLET BY MOUTH THREE TIMES A DAY NEEDED S OLD: 06/21/2019 [facility] 40 mg 04/11/2019 12:00:00 AM EST tablet 90 TAKE ONE TABLET BY MOUTH EVERY DAY TAKE ONE TABLET BY MOUTH EVERY DAY SOLD: 07/03/2019 [facility] 5 mg 04/11/2019 12:00:00 AM EST tablet 60 TAKE ONE TABLET BY MOUTH THREE TIMES A DAY NEEDED TAKE ONE TABLET BY MOUTH THREE TIMES A DAY NEEDED S OLD: 05/03/2019 [facility] 50 mg 04/08/2019 12:00:00 AM EST tablet 90 TAKE ONE TABLET BY MOUTH EVERY MORNING TAKE ONE TABLET BY MOUTH EVERY MORNING SOLD: 07/03/2019 [facility] 40 mg 04/08/2019 12:00:00 AM EST tablet,delayed release (DR/EC) 90 TAKE ONE TABLET BY MOUTH EVERY DAY TAKE ONE TABLET BY MOUTH EVERY DAY SOLD: 07/03/2019 [facility] gabapentin 800 MG Oral Tablet GABAPENTIN 03/26/2019 12:00:00 AM EST t ablet 180 TAKE ONE TABLET BY MOUTH TWICE A DAY TAKE ONE TABLET BY MOUT H TWICE A DAY SOLD: 09/16/2019 [facility] 800 mg 03/26/2019 12:00:00 AM EST tablet 180 TAKE ONE TABLET BY MOUTH TWICE A DAY TAKE ONE TABLET BY MOUTH TWICE A DAY SOLD: 06/21/2019 [facility] gabapentin 800 MG Oral Tablet GABAPENTIN 03/26/2019 12:00:00 AM EST t ablet 180 TAKE ONE TABLET BY MOUTH TWICE A DAY TAKE ONE TABLET BY MOUT H TWICE A DAY SOLD: 12/13/2019 [facility] gabapentin 800 MG Oral Tablet GABAPENTIN 03/26/2019 12:00:00 AM EST t ablet 180 TAKE ONE TABLET BY MOUTH TWICE A DAY TAKE ONE TABLET BY MOUT H TWICE A DAY SOLD: 03/09/2020 [facility] 200 unit/mL (3 mL) 02/22/2019 12:00:00 AM EDT insulin pen 60 INJECT 135 UNITS UNDER THE SKIN ONCE DAILY INJECT 135 UNITS UNDER THE SKIN ONCE DAILY SOLD: 08/11/2019 [facility] 200 unit/mL (3 mL) 02/22/2019 12:00:00 AM EDT insulin pen 60 INJECT 135 UNITS UNDER THE SKIN ONCE DAILY INJECT 135 UNITS UNDER THE SKIN ONCE DAILY SOLD: 05/19/2019 [facility] 100 unit/mL 01/12/2019 12:00:00 AM EDT insulin pen 15 INJECT 20 UNITS SUBCUTANEOUSLY BEFORE LUNCH AND DINNER INJECT 20 UNITS SUBCUTANEOUSLY BEFORE LUNCH AND DINNER SOLD: 08/29/2019 [facility] 100 unit/mL 01/12/2019 12:00:00 AM EDT insulin pen 15 INJECT 20 UNITS SUBCUTANEOUSLY BEFORE LUNCH AND DINNER INJECT 20 UNITS SUBCUTANEOUSLY BEFORE LUNCH AND DINNER SOLD: 11/04/2019 [facility] 100 unit/mL 01/12/2019 12:00:00 AM EDT insulin pen 15 INJECT 20 UNITS SUBCUTANEOUSLY BEFORE LUNCH AND DINNER INJECT 20 UNITS SUBCUTANEOUSLY BEFORE LUNCH AND DINNER SOLD: 06/16/2019 [facility] 145 mg 01/11/2019 12:00:00 AM EDT tablet 90 TAKE ONE TABLET BY MOUTH EVERY DAY TAKE ONE TABLET BY MOUTH EVERY DAY SOLD: 07/03/2019 [facility] 145 mg 01/11/2019 12:00:00 AM EDT tablet 90 TAKE ONE TABLET BY MOUTH EVERY DAY TAKE ONE TABLET BY MOUTH EVERY DAY SOLD: 09/29/2019 [facility] 112 mcg 01/10/2019 12:00:00 AM EDT tablet 90 TAKE ONE TABLET BY MOUTH EVERY DAY BEFORE BREAKFAST ON AN EMPTY STOMACH TAKE ONE TABLET BY MOUTH EVERY DAY BEFORE BREAKFAST ON AN EMPTY STOMACH SOLD: 07/03/2019 [facility] 112 mcg 01/10/2019 12:00:00 AM EDT tablet 90 TAKE ONE TABLET BY MOUTH EVERY DAY BEFORE BREAKFAST ON AN EMPTY STOMACH TAKE ONE TABLET BY MOUTH EVERY DAY BEFORE BREAKFAST ON AN EMPTY STOMACH SOLD: 09/29/2019 [facility] 75 mg 01/08/2019 12:00:00 AM EDT tablet 90 TAKE ONE TABLET BY MOUTH EVERY DAY TAKE ONE TABLET BY MOUTH EVERY DAY SOLD: 12/21/2019 [facility] 75 mg 01/08/2019 12:00:00 AM EDT tablet 90 TAKE ONE TABLET BY MOUTH EVERY DAY TAKE ONE TABLET BY MOUTH EVERY DAY SOLD: 07/03/2019 [facility] 75 mg 01/08/2019 12:00:00 AM EDT tablet 90 TAKE ONE TABLET BY MOUTH EVERY DAY TAKE ONE TABLET BY MOUTH EVERY DAY SOLD: 09/29/2019 [facility] BLOOD SUGAR DIAGNOSTIC 12/07/2018 12:00:00 AM EDT strip 200 USE TWO TIMES A DAY TO CHECK BLOOD SUGAR USE TWO TIMES A DAY TO CHECK BLOOD SUGAR SOLD: 09/29/2019 [facility] BLOOD SUGAR DIAGNOSTIC 12/07/2018 12:00:00 AM EDT strip 200 USE TWO TIMES A DAY TO CHECK BLOOD SUGAR USE TWO TIMES A DAY TO CHECK BLOOD SUGAR SOLD: 07/03/2019 [facility] 1,250 mcg (50,000 unit) 11/11/2018 12:00:00 AM EDT capsule 24 TAKE 2 CAPSULES BY MOUTH ONCE WEEKLY TAKE 2 CAPSULES BY MOUTH ONCE WEEKLY SOLD: 05/03/2019 [facility] 20 mEq 11/10/2018 12:00:00 AM EDT tablet,ER particles/cry stals 60 TAKE ONE TABLET BY MOUTH EVERY DAY TAKE ONE TABLET BY MOUTH EVERY DAY SOLD: 04/19/2019 [facility] 150 mg 10/11/2018 12:00:00 AM EDT tablet 90 TAKE ONE TABLET BY MOUTH EVERY EVENING TAKE ONE TABLET BY MOUTH EVERY EVENING SOLD: 07/17/2019 [facility] Insurance Providers Payer name Policy type / Coverage type Policy ID Covered alliance party ID Covered alliance party's relationship to palacio Policy Palacio Plan Information [id number] SP [id number] MEDICARE COMPLETE [id number] SP [id number] MEDICAID [id number] Margie [id number] [facility] MED[facility] [id number] Margie [id number] [facility](MCAID) O [id number] S [id number] MEDICAID [id number] MEDICAID [id number] SP [id number] [facility] [id number] SP [id number] [facility] MEDICAID [id number] Margie [id number] [facility] MEDICAID [id number] Margie [id number] [id number] SP [id number] MEDICAID [id number] SP [id number] [facility] O UNAVAILABLE S UNAVAILABLE Medicare Natl Govt Servic Medicare Primary [id number] Self [id number] Medicaid Medigap Part B [id number] Self [id number] Wellcare/Todays Optmcr Commercial [id number] Self [id number] [employer] [id number] Self [id number] Medicare C [id number] SELF [id number] Medicare C need SELF need Medicare Natl Govt Servic Medicare Primary [id number] Self [id number] Medicaid Medigap Part B [id number] Self [id number] Wellcare/Todays Optmcr Commercial [id number] Self [id number] Medicare Natl Govt Servic Medicare Primary [id number] Self [id number] Medicaid Medigap Part B [id number] Self [id number] Wellcare/Todays Optmcr Commercial [id number] Self [id number] Medicare [facility] Medigap Part B [id number] Self [id number] [facility] ([facility]) Commercial [id number] Self [id number] [place] Medigap Part B [id number] Self [id number] Medicare [facility] Medigap Part B [id number] Self [id number] [facility] ([facility]) Commercial [id number] Self [id number] [facility] O [id number] S [id number] Medicaid Medicaid [id number] Self [id number] Comm Dual Plan Commercial [id number] Self [id number] TODAYS OPTIONS [id number] SP [id number] TODAYS OPTIONS/GUAMANIAN O [id number] S [id number] Medicare Natl Govt Servic Medicare Primary [id number] Self [id number] Medicaid Medigap Part B [id number] Self [id number] Todays Option Medicare Commercial [id number] Self [id number] Medicaid Medicaid [id number] Self [id number] [id number] Comm Dual Plan Commercial [id number] Self [id number] Medicaid Medicaid [id number] Self [id number] Today's Option Commercial [id number] Self [id number] Medicare Natl Govt Servic Medicare Primary [id number] Self [id number] Medicaid Medigap Part B [id number] Self [id number] Todays Option Medicare Commercial [id number] Self [id number] [employer] [id number] Self [id number] Medicare Natl Govt Servic Medicare Primary [id number] Self [id number] Medicaid Medigap Part B [id number] Self [id number] Todays Option Medicare Commercial [id number] Self [id number] Medicaid Medicaid [id number] Self [id number] Today's Option Commercial [id number] Self [id number] Medicare Natl Govt Servic Medicare Primary [id number] Self [id number] Medicaid Medigap Part B [id number] Self [id number] Todays Option Medicare Commercial [id number] Self [id number] Medicare Natl Govt Servic Medicare Primary [id number] Self [id number] Medicaid Medigap Part B [id number] Self [id number] Todays Option Medicare Commercial [id number] Self [id number] Medicaid Medicaid [id number] Self [id number] Today's Option Commercial [id number] Self [id number] Medicaid Medicaid [id number] Self [id number] Today's Option Commercial [id number] Self [id number] Medicare Natl Govt Servic Medicare Primary [id number] Self [id number] Medicaid Medigap Part B [id number] Self [id number] Todays Option Medicare Commercial [id number] Self [id number] [facility] Medicare Jackelin Commercial [id number] Self [id number] Medicare Natl Govt Servic Medicare Primary [id number] Self [id number] Medicaid Medigap Part B [id number] Self [id number] Todays Option Medicare Commercial [id number] Self [id number] Medicare Natl Govt Servic Medicare Primary [id number] Self [id number] Medicaid Medigap Part B [id number] Self [id number] Todays Option Medicare Commercial [id number] Self [id number] Medicare Natl Govt Servic Medicare Primary [id number] Self [id number] Medicaid Medigap Part B [id number] Self [id number] Todays Option Medicare Commercial [id number] Self [id number] Medicare Natl Govt Servic Medicare Primary [id number] Self [id number] Medicaid Medigap Part B [id number] Self [id number] Todays Option Medicare Commercial [id number] Self [id number] Medicare Natl Govt Servic Medicare Primary [id number] Self [id number] Medicaid Medigap Part B [id number] Self [id number] Todays Option Medicare Commercial [id number] Self [id number] Medicare Natl Govt Servic Medicare Primary [id number] Self [id number] Medicaid Medigap Part B [id number] Self [id number] Todays Option Medicare Commercial [id number] Self [id number] Medicare Natl Govt Servic Medicare Primary [facility] Jackelin Commercial Hmo Self Hmo Medicaid Medigap Part B 1 1 Self 1 1 Todays Option Medicare Commercial Advantage Plus [id number] Self Advantage Plus [id number] MEDICAID [id number] SP [id number] Problems, Conditions, and Diagnoses Code Display Name Description Problem Type Effective Dates Data Source(s) [id number] Type 2 diabetes mellitus Type 2 diabetes mellitus Prob ismael 12/20/2019 12:00:00 AM EDT [facility] ([facility]) I10 Essential (primary) hypertension Essential (primary) h ypertension Diagnosis 02/07/2020 01:50:32 PM EDT [facility] E78.2 Mixed hyperlipidemia Mixed hyperlipidemia Diagnosis 02/07/2020 01:50:32 PM EDT [facility] I25.810 Atherosclerosis of coronary artery bypass graft(s) without angina pectoris Atherosclerosis of coronary artery bypas Diagnosis 02/07/2020 01:50:32 PM EDT [facility] E11.59 Type 2 diabetes mellitus with other circ ulatory complications Type 2 diabetes mellitus with other circ Diagnosis 07/05/2019 01:09:07 PM EST [facility] Surgeries/Procedures Procedure Description Date Indications Data Source(s) Diabetic Retinal Eye Exam 12/15/2019 12:00:00 AM EDT [facility] ([facility]) Diabetic Retinal Eye Exam 12/15/2019 12:00:00 AM EDT [facility] ([facility]) PARING/CUTTING BENIGN HYPERKERATOTIC LESION 2-4 2019 12:00:00 AM EDT [facility] ([facility] DEBRIDEMENT NAIL ANY METHOD 6/> 12/13/2019 12:00:00 AM EDT [facility] ([facility] THERAPEUTIC PROPHYLACTIC/DX INJECTION SUBQ/IM 06/20/19 12:00:00 AM EST [facility] ([facility]) Results ID Date Data Source [id number] 04/03/2020 09:52:00 AM EST [facility] ([facility]) Name Value Range Interpretation Code Description Data Neelima rce(s) Supporting Document(s) LDL Direct 76 mg/dL 0-99 [facility]) Comment LDL Direct Laboratory test result [facility] ([facility]) Performed at: RN - [facility] [address] [id number] Edge Finisher: Suzan Leyva MD, Phone: [phone] ID Date Data Source [id number] 04/03/2020 09:52:00 AM EST [facility] ([facility]) Name Value Range Interpretation Code Description Data Neelima rce(s) Supporting Document(s) Cobalamin (Vitamin B12) [Mass/volume] in Serum or Plasma Lab oratory test result [id number] [facility] ([facility]) VITAMIN B12 NORMAL RANGE NORMAL 247 - 911 PG/ML INDETERMINATE 211 - 246 PG/ML DEFICIENT LESS THAN 211 PG/ML ID Date Data Source [id number] 04/03/2020 09:52:00 AM EST [facility] ([facility]) Name Value Range Interpretation Code Description Data Neelima rce(s) Supporting Document(s) Microalbumin Urine 15.9 mg/L 1.3-20.0 [facility] ([facility]) Urine Creatinine 49.8 mg/dL 30.0-125.0 [facility] ([facility]) Microalb/Creat Ratio 31.9 ug/mg 0.0-30.0 [facility] ( [facility]) ID Date Data Source [id number] 04/03/2020 09:52:00 AM EST [facility] ([facility]) Name Value Range Interpretation Code Description Data Neelima rce(s) Supporting Document(s) Thyrotropin [Units/volume] in Serum or Plasma by Detec tion limit <= 0.05 mIU/L 5.73 uIU/mL 0.36-3.74 [facility] ([facility] ) ID Date Data Source [id number] 04/03/2020 09:52:00 AM EST [facility] ([facility]) Name Value Range Interpretation Code Description Data Neelima rce(s) Supporting Document(s) Cholesterol [Mass/volume] in Serum or Plasma 193 mg/dL 131-200 [facility] ([facility]) Triglyceride [Mass/volume] in Serum or Plasma 706 mg/dL 30-150 [facility] ([facility]) Cholesterol in LDL [Mass/volume] in Serum or Plasma by calculation Laboratory test result [id number] [facility] [facility] ) Unable to calculate Cholesterol in HDL [Mass/volume] in Serum or Plasma 36 mg/dL 35-60 [facility] ([facility]) ID Date Data Source [id number] 04/03/2020 09:52:00 AM EST [facility] ([facility]) Name Value Range Interpretation Code Description Data Neelima rce(s) Supporting Document(s) Glucose [Mass/volume] in Serum or Plasma 628 mg/dL 74-99 Above upper panic limits [facility] ([facility]) CRITICAL: PRECIOUS ALMODOVAR NOTIFIED NOTE: RESULT VERIFIED. 100-125 mg/dL PRE-DIABETES/FASTING >126 mg/dL DIABETES/FASTING Urea nitrogen [Mass/volume] in Serum or Plasma 26 mg/dL 7-18 [facility] ([facility]) Creatinine 1.2 mg/dL 0.6-1.3 [facility] Sodium [Moles/volume] in Serum or Plasma 129 meq/L 136-145 [facility] ([facility]) NOTE: KAYLIE VERIFIED Carbon dioxide, total [Moles/volume] in Serum or Plasma 25 meq/L 21 -32 [facility] ([facility]) Chloride [Moles/volume] in Serum or Plasma 92 meq/L 98-107 [facility] ([facility]) Potassium [Moles/volume] in Serum or Plasma 4.6 meq/L 3.5-5.1 [facility] ([facility]) Calcium [Mass/volume] in Serum or Plasma 9.8 mg/dL 8.5-10.1 [facility] ([facility]) Alkaline phosphatase isoenzyme [Units/volume] in Serum or Pl asma 97 mg/dL 46-116 [facility] ([facility]) Total Bilirubin 0.8 mg/dL 0.2-1.0 [facility] ([facility]) Alanine aminotransferase [Enzymatic activity/volume] in Seru m or Plasma 21 U/L 12-78 [facility] ([facility]) Albumin [Mass/volume] in Serum or Plasma 3.9 g/dL 3.4-5.0 [facility] ([facility]) Aspartate aminotransferase [Enzymatic activity/volume] in Serum or Plasma 16 U/L 15-37 [facility] ([facility] ) A/G Ratio 1.08 CALC 1.00-1.90 [facility]) Proteinase 3 Ab [Units/volume] in Serum 7.5 g/dL 6.4-8.2 [facility] ([facility]) Glomerular filtration rate/1.73 sq M pre dicted among non-blacks [Volume Rate/Area] in Serum or Plasma by Creatinine-based formula (MDRD) 46 mL/min [facility] Glomerular filtration rate/1.73 sq M pre dicted among blacks [Volume Rate/Area] in Serum or Plasma by Creatinine-based formula (MDRD) 55 mL/min [facility] <content>CHRONIC KIDNEY DISEASE STAGING PER NKF</content>
<content></content>
<content>STAGE I & II GFR >= 60 NORMAL TO MILDLY DECREASED</content>
<content>STAGE III GFR 30-59 MODERATELY DECREASED</content>
<content>STAGE IV GFR 15-29 SEVERELY DECREASED</content>
<content>STAGE V GFR <15 VERY LITTLE GFR LEFT</content>
<content>ESRD GFR <15 ON ORNAMENTAL IRON ERECTOR</content>
<content></content> ID Date Data Source [id number] 04/03/2020 09:52:00 AM EST [facility] ([facility]) Name Value Range Interpretation Code Description Data Neelima rce(s) Supporting Document(s) Glucose mean value [Mass/volume] in Blood Estimated fr om glycated hemoglobin 278 mg/dL 60-110 [facility] Hemoglobin A1c/Hemoglobin.total in Blood 11.3 % [facility] ([facility]) NOTE: A1C,TRIG VERIFIED Lab Result Notes: Pre-Diabetes 5.7 - 6.4 % Diabetes = or > 6.5% ID Date Data Source [id number] 04/03/2020 09:52:00 AM EST [facility] Name Value Range Interpretation Code Description Data Neelima rce(s) Supporting Document(s) Leukocytes [#/volume] in Blood by Automated count 11.9 x10*3/UL 4.1-1 0.9 [facility] NOTE: CBC VERIFIED Hematocrit [Volume Fraction] of Blood by Automated count 42.9 % 3 7.0-51.0 [facility] MCV 90.5 fL 80.0-97.0 [facility] ([facility]) Erythrocytes [#/volume] in Blood by Automated count 4.74 x10*6/UL 4.2 0-6.30 [facility] Hemoglobin [Mass/volume] in Blood 14.7 g/dL 12.0-18.0 [facility] ([facility]) MCHC 34.2 g/dL 31.0-38.0 [facility] ([facility]) Erythrocyte distribution width [Ratio] by Automated count 12.6 % 11.6-13.7 [facility] ([facility]) MCH 31.0 pg 26.0-32.0 [facility] ([facility]) Lymph % 27.2 % 10.0-58.5 [facility] ([facility]) MPV 9.4 FL 7.8-11.0 [facility] ([facility]) Platelets [#/volume] in Blood by Automated count 313 x10*3/UL 140-440 [facility] Lymph # 3.2 x10*3/UL 0.6-4.1 [facility] ([facility]) Mid % 6.8 % 1.7-9.3 [facility] Neut % 66.0 % 37.0-92.0 [facility] Neut # 7.9 x10*3/UL 2.0-7.8 [facility] ([facility]) Mid # 0.8 x10*3/UL 0.1-0.6 [facility] ([facility]) ID Date Data Source [id number] 04/03/2020 09:52:00 AM EST [facility] ([facility]) Name Value Range Interpretation Code Description Data Neelima rce(s) Supporting Document(s) Hemoglobin A1c/Hemoglobin.total in Blood Laboratory test result [facility] ([facility]) ID Date Data Source [id number] 12/20/2019 02:38:00 PM EDT [facility] ([facility]) Name Value Range Interpretation Code Description Data Neelima rce(s) Supporting Document(s) Cholesterol [Mass/volume] in Serum or Plasma 205 mg/dL 131-200 [facility] ([facility]) Cholesterol in LDL [Mass/volume] in Serum or Plasma by calculation Laboratory test result 50-159 [facility] ([facility] ) Unable to calculate Triglyceride [Mass/volume] in Serum or Plasma 619 mg/dL 30-150 [facility] ([facility]) Cholesterol in HDL [Mass/volume] in Serum or Plasma 32 mg/dL 35-60 [facility] ([facility]) ID Date Data Source [id number] 12/20/2019 02:38:00 PM EDT [facility] ([facility]) Name Value Range Interpretation Code Description Data Neelima rce(s) Supporting Document(s) Urea nitrogen [Mass/volume] in Serum or Plasma 22 mg/dL 7-18 [facility] ([facility]) Glucose [Mass/volume] in Serum or Plasma 223 mg/dL 74-99 [facility] ([facility]) 100-125 mg/dL PRE-DIABETES/FASTING >126 mg/dL DIABETES/FASTING Potassium [Moles/volume] in Serum or Plasma 4.5 meq/L 3.5-5.1 [facility] ([facility]) Sodium [Moles/volume] in Serum or Plasma 143 meq/L 136-145 [facility] ([facility]) Creatinine 0.8 mg/dL 0.6-1.3 [facility] ([facility]) Calcium [Mass/volume] in Serum or Plasma 9.4 mg/dL 8.5-10.1 [facility] ([facility]) Alkaline phosphatase isoenzyme [Units/volume] in Serum or Pl asma 93 mg/dL 46-116 [facility] ([facility]) Carbon dioxide, total [Moles/volume] in Serum or Plasma 24 meq/L 21 -32 [facility] ([facility]) Chloride [Moles/volume] in Serum or Plasma 104 meq/L 98-107 [facility] ([facility]) Alanine aminotransferase [Enzymatic activity/volume] in Seru m or Plasma 36 U/L 12-78 [facility] ([facility]) Aspartate aminotransferase [Enzymatic activity/volume] in Serum or Plasma 34 U/L 15-37 [facility] ([facility] ) Total Bilirubin 0.4 mg/dL 0.2-1.0 [facility] ([facility]) Proteinase 3 Ab [Units/volume] in Serum 7.0 g/dL 6.4-8.2 [facility] ([facility]) Albumin [Mass/volume] in Serum or Plasma 3.5 g/dL 3.4-5.0 [facility] ([facility]) A/G Ratio 1.00 CALC 1.00-1.90 [facility] ([facility]) Glomerular filtration rate/1.73 sq M pre dicted among non-blacks [Volume Rate/Area] in Serum or Plasma by Creatinine-based formula (MDRD) Laboratory test result [facility] Glomerular filtration rate/1.73 sq M pre dicted among blacks [Volume Rate/Area] in Serum or Plasma by Creatinine-based formula (MDRD) Laboratory test result [facility] ([facility]) <content>CHRONIC KIDNEY DISEASE STAGING PER NKF</content>
<content></content>
<content>STAGE I & II GFR >= 60 NORMAL TO MILDLY DECREASED</content>
<content>STAGE III GFR 30-59 MODERATELY DECREASED</content>
<content>STAGE IV GFR 15-29 SEVERELY DECREASED</content>
<content>STAGE V GFR <15 VERY LITTLE GFR LEFT</content>
<content>ESRD GFR <15 ON ORNAMENTAL IRON ERECTOR</content>
<content></content> ID Date Data Source [id number] 12/20/2019 02:38:00 PM EDT [facility] Name Value Range Interpretation Code Description Data Neelima rce(s) Supporting Document(s) Hemoglobin A1c/Hemoglobin.total in Blood 10.7 g/dL 4.8-5.6 [facility] Lab Result Notes: Pre-Diabetes 5.7 - 6.4 % Diabetes = or > 6.5% Glucose mean value [Mass/volume] in Blood Estimated fr om glycated hemoglobin 260 mg/dL 60-110 [facility] ID Date Data Source [id number] 12/20/2019 02:38:00 PM EDT [facility] Name Value Range Interpretation Code Description Data Neelima rce(s) Supporting Document(s) Erythrocytes [#/volume] in Blood by Automated count 4.14 x10*6/UL 4.2 0-6.30 [facility] Leukocytes [#/volume] in Blood by Automated count 9.9 x10*3/UL 4.1-10 .9 [facility] Hemoglobin [Mass/volume] in Blood 12.9 g/dL 12.0-18.0 [facility] MCV 89.7 fL 80.0-97.0 [facility] ([facility]) Hematocrit [Volume Fraction] of Blood by Automated count 37.2 % 3 7.0-51.0 [facility] ([facility]) MCHC 34.8 g/dL 31.0-38.0 [facility] ([facility]) Platelets [#/volume] in Blood by Automated count 243 x10*3/UL 140-440 [facility] Erythrocyte distribution width [Ratio] by Automated count 12.0 % 11.6-13.7 [facility] ([facility]) MCH 31.2 pg 26.0-32.0 [facility]) Mid % 8.5 % 1.7-9.3 [facility] MPV 8.5 FL 7.8-11.0 [facility] Lymph % 41.9 % 10.0-58.5 [facility] Neut % 49.6 % 37.0-92.0 [facility] Lymph # 4.1 x10*3/UL 0.6-4.1 [facility] ([facility]) Mid # 0.9 x10*3/UL 0.1-0.6 [facility] ([facility]) Neut # 4.9 x10*3/UL 2.0-7.8 [facility] ([facility]) ID Date Data Source [id number] 12/20/2019 02:38:00 PM EDT [facility] ([facility]) Name Value Range Interpretation Code Description Data Neelima rce(s) Supporting Document(s) Hemoglobin A1c/Hemoglobin.total in Blood Laboratory test result [facility] ([facility]) ID Date Data Source [id number] 12/20/2019 02:37:00 PM EDT [facility] ([facility]) Name Value Range Interpretation Code Description Data Neelima rce(s) Supporting Document(s) Cholesterol in LDL [Mass/volume] in Serum or Plasma by Direct assay Laboratory test result [facility] ([facility] ) SEE SEPARATE REPORT Testing performed at reference lab . Report copy to follow on a separate form. 01/26/20 REF LAB#:[id number] ID Date Data Source [id number] 12/20/2019 02:37:00 PM EDT [facility] ([facility]) Name Value Range Interpretation Code Description Data Neelima rce(s) Supporting Document(s) Calcidiol [Mass/volume] in Serum or Plasma 38.0 24.0-80.0 [facility] This test was performed using [employer] I P Vitamin D immunoassay kit. Values obtained with different assay methods should not be used interchangeably. ID Date Data Source [id number] 12/20/2019 02:37:00 PM EDT [facility] ([facility]) Name Value Range Interpretation Code Description Data Neelima rce(s) Supporting Document(s) Cholesterol in LDL [Mass/volume] in Serum or Plasma by Direct assay Laboratory test result [facility] ID Date Data Source [id number] 12/25/2019 07:05:00 AM EDT [facility] Name Value Range Interpretation Code Description Data Neelima rce(s) Supporting Document(s) LDL Chol. (Direct) 74 mg/dL 0-99 [facility] ID Date Data Source [id number] 12/25/2019 07:05:00 AM EDT [facility] Name Value Range Interpretation Code Description Data Neelima rce(s) Supporting Document(s) Please note [facility] The date recorded on the requisition ind icates the sample(s) receivedwere greater than 72 hours old upon arrival in our laboratory. ID Date Data Source [id number] 09/18/2019 03:49:[address] [facility] Name Value Range Interpretation Code Description Data Neelima rce(s) Supporting Document(s) Laboratory test finding (navigational concept) 43.0 % 38.0-51.0 [facility] ([facility]) Laboratory test finding (navigational concept) 292 mg/dL 70-105 [facility] ([facility]) Laboratory test finding (navigational concept) 139 meq/L 136-145 [facility] ([facility]) Laboratory test finding (navigational concept) 4.7 meq/L 3.5-5.1 [facility] ([facility]) Laboratory test finding (navigational concept) 4.9 mg/dL 4.5-5.3 [facility] ([facility]) Laboratory test finding (navigational concept) 29 mg/dL 8-26 [facility] ([facility]) Laboratory test finding (navigational concept) 23.0 MM/L 23.0-27.0 [facility] ([facility]) Laboratory test finding (navigational concept) 103 meq/L 98-109 [facility] ([facility]) Laboratory test finding (navigational concept) 0.7 mg/dL 0.6-1.3 [facility] ([facility]) ID Date Data Source [id number] 09/18/2019 03:32:00 AM EDT [facility] ([facility]) Name Value Range Interpretation Code Description Data Neelima rce(s) Supporting Document(s) Lipoprotein lipase [Enzymatic activity/volume] in Serum or P lasma 189 U/L 73-393 [facility] ([facility]) ID Date Data Source [id number] 09/18/2019 03:32:00 AM EDT [facility] ([facility]) Name Value Range Interpretation Code Description Data Neelima rce(s) Supporting Document(s) Ast/Sgot 24 U/L 7-37 [facility]) Alt/SGPT 37 U/L 12-78 [facility] ([facility]) Bilirubin,Direct 0.2 mg/dL 0.0-0.2 [facility] ([facility]) Bilirubin,Total 0.4 mg/dL 0.2-1.0 [facility] ([facility]) Alkaline Phosphatase 84 U/L 45-117 [facility] ([facility]) Albumin/Globulin Ratio 1.18 1.00-1.93 [facility] ([facility]) Total Protein 7.2 GM/DL 6.4-8.2 [facility] ([facility]) Albumin 3.9 GM/DL 3.2-5.2 [facility] ([facility]) ID Date Data Source [id number] 09/18/2019 03:32:00 AM EDT [facility] ([facility]) Name Value Range Interpretation Code Description Data Neelima rce(s) Supporting Document(s) MB/CK Relative Index 2.64 [facility] ([facility]) <content>DIAGNOSIS CRITERIA</content>
<content>MMB ng/ml Relative Index (RI)</content>
<content>NON-AMI < or = 5 N/A</content>
<content>GODFREY ZONE > 5 < or = 4</content>
<content>AMI > 5 > 4</content>
<content></content> CK-MB Value Mass 2.4 ng/mL [facility] ([facility]) CPK Creatine Phosphokinase 91 U/L 26-192 [facility] ([facility]) Troponin I Laboratory test result [facility] ([facility]) <content>Troponin I Reference Interval f or Siemens [place] LOCI:</content>
<content></content>
<content>99th Percentile= 0.00-0.045 ng/ml</content>
<content></content>
<content>Risk Stratification:</content>
<content><= 0.10 ng/ml Decreased Risk for Adverse Clinical</content>
<content>Events.</content>
<content>0.10-1.50 ng/ml Increased Risk for Adverse Clinical</content>
<content>Events. Evaluation of additional</content>
<content>criterion and/or repeat testing in 2-6</content>
<content>hours is suggested to rule out myocardial</content>
<content>damage.</content>
<content>>= 1.50 ng/ml Indicative of Myocardial Injury.</content>
<content></content> ID Date Data Source [id number] 09/18/2019 03:32:[address] [facility] ([facility]) Name Value Range Interpretation Code Description Data Neelima rce(s) Supporting Document(s) White Blood Count 18.9 10 4.0-10.0 [facility] ([facility]) Red Blood Count 4.41 10 4.00-5.40 [facility] Hematocrit 41.4 % [facility].0[facility] Hemoglobin 14.0 g/dL 12.0-15.5 [facility] Mean Corpuscular Hemoglobin 31.7 pg 27.0-33.0 [facility] ([facility]) Mean Corpuscular Volume 93.9 fl 80.0-96.0 [facility] Mean Corpuscular HGB Conc 33.8 g/dL 32.0-36.5 [facility] ([facility]) Platelet Count, Automated 248 10 150-450 [facility] ([facility]) Red Cell Distribution Width 12.6 % 11.5-14.5 [facility] ([facility]) [place] % 7.7 % 0.0-5.0 [facility]) Neutrophils % 80.2 % 36.0-66.0 [facility] ([facility]) Lymph % 10.8 % 24.0-44.0 [facility]) Baso % 0.3 % 0.0-1.0 [facility] Nucleated Red Blood Cell % 0.0 % 0-0 [facility] ([facility]) Immature Granulocyte % 0.5 % 0-3.0 [facility] ([facility]) Eos % 0.5 % 0.0-3.0 [facility] Neutrophils # 15.2 10 1.5-8.5 [facility] ([facility]) [place] # 1.5 10 0.0-0.8 [facility]) Lymph # 2.0 10 1.5-5.0 [facility] Eos # 0.1 10 0.0-0.5 [facility] Baso # 0.1 10 0.0-0.2 [facility] ID Date Data Source [id number] 06/20/2019 10:09:00 AM EST [facility] ([facility]) Name Value Range Interpretation Code Description Data Neelima rce(s) Supporting Document(s) Bacteria identified in Urine by Culture FULL REPORT IN L <SEE NOTE> [facility] ([facility]) FULL REPORT IN LAB NOTES ([facility] and [facility] ). SPECIMEN APPEARS CONTAMINATED ID Date Data Source [id number] 06/20/2019 10:07:00 AM EST [facility] Name Value Range Interpretation Code Description Data Neelima rce(s) Supporting Document(s) Microalbumin Urine 19.8 mg/L 1.3-20.0 [facility] ([facility]) Urine Creatinine 225.1 mg/dL 30.0-125.0 [facility] Microalb/Creat Ratio 8.8 ug/mg 0.0-30.0 [facility] ID Date Data Source [id number] 06/20/2019 10:07:00 AM EST [facility] ([facility]) Name Value Range Interpretation Code Description Data Neelima rce(s) Supporting Document(s) Urine Color YELLOW [facility] ([facility]) Urine PH 6.0 units 5.0-9.0 [facility]) Specific gravity of Urine 1.025 1.005-1.030 [facility] ([facility]) Urine Appearance SL. HAZY Abnormal (applies to non-numer ic results) [facility] ([facility]) Urine Blood LARGE Abnormal (applies to non-numeric re sults) [facility] ([facility]) Glucose [Presence] in Urine >=2000 mg/dL mg/dL A bnormal (applies to non- numeric results) [facility] ([facility]) Urine Leukocytes NEGATIVE [facility] ([facility]) Urine Protein TRACE 0-0 [facility] ([facility]) Urine Ketone NEGATIVE mg/dL [facility] ([facility]) Bilirubin.total [Mass/volume] in Serum or Plasma NEGATIVE [facility] ([facility]) Urine Nitrite NEGATIVE [facility] ([facility]) Urine Urobilinogen 0.2 mg/dL 0.2-1.0 [facility] ([facility]) ID Date Data Source [id number] 06/20/2019 09:26:00 AM EST [facility] ([facility]) Name Value Range Interpretation Code Description Data Neelima rce(s) Supporting Document(s) Thyrotropin [Units/volume] in Serum or Plasma by Detec tion limit <= 0.05 mIU/L 1.72 uIU/mL 0.36-3.74 [facility] ([facility] ) ID Date Data Source [id number] 06/20/2019 09:26:00 AM EST [facility] ([facility]) Name Value Range Interpretation Code Description Data Neelima rce(s) Supporting Document(s) Cholesterol in HDL [Mass/volume] in Serum or Plasma 32 mg/dL 35-60 [facility] ([facility]) Cholesterol [Mass/volume] in Serum or Plasma 174 mg/dL 131-200 [facility] ([facility]) Triglyceride [Mass/volume] in Serum or Plasma 401 mg/dL 30-150 [facility] ([facility]) Cholesterol in LDL [Mass/volume] in Serum or Plasma by calculation Unable to calcul <SEE NOTE> CALC 50-159 [facility] ([facility]) Unable to calculate ID Date Data Source [id number] 06/20/2019 09:26:00 AM EST [facility] ([facility]) Name Value Range Interpretation Code Description Data Neelima rce(s) Supporting Document(s) Urea nitrogen [Mass/volume] in Serum or Plasma 24 mg/dL 7-18 [facility] ([facility]) Sodium [Moles/volume] in Serum or Plasma 141 meq/L 136-145 [facility] ([facility]) Glucose [Mass/volume] in Serum or Plasma 276 mg/dL 74-99 [facility] ([facility]) 100-125 mg/dL PRE-DIABETES/FASTING >126 mg/dL DIABETES/FASTING Creatinine 0.8 mg/dL 0.6-1.3 [facility] ([facility]) Potassium [Moles/volume] in Serum or Plasma 4.2 meq/L 3.5-5.1 [facility] ([facility]) Chloride [Moles/volume] in Serum or Plasma 102 meq/L 98-107 [facility] ([facility]) Carbon dioxide, total [Moles/volume] in Serum or Plasma 28 meq/L 21 -32 [facility] ([facility]) Alkaline phosphatase isoenzyme [Units/volume] in Serum or Pl asma 86 mg/dL 46-116 [facility] ([facility]) Calcium [Mass/volume] in Serum or Plasma 9.6 mg/dL 8.5-10.1 [facility] ([facility]) Total Bilirubin 0.5 mg/dL 0.2-1.0 [facility] ([facility]) Aspartate aminotransferase [Enzymatic activity/volume] in Serum or Plasma 18 U/L 15-37 [facility] ([facility] ) Proteinase 3 Ab [Units/volume] in Serum 7.2 g/dL 6.4-8.2 [facility] ([facility]) Alanine aminotransferase [Enzymatic activity/volume] in Seru m or Plasma 25 U/L 12-78 [facility] ([facility]) Albumin [Mass/volume] in Serum or Plasma 4.0 g/dL 3.4-5.0 [facility] ([facility]) Glomerular filtration rate/1.73 sq M pre dicted among blacks [Volume Rate/Area] in Serum or Plasma by Creatinine-based formula (MDRD) >= 60 mL/min [facility] <content>CHRONIC KIDNEY DISEASE STAGING PER NKF</content>
<content></content>
<content>STAGE I & II GFR >= 60 NORMAL TO MILDLY DECREASED</content>
<content>STAGE III GFR 30-59 MODERATELY DECREASED</content>
<content>STAGE IV GFR 15-29 SEVERELY DECREASED</content>
<content>STAGE V GFR <15 VERY LITTLE GFR LEFT</content>
<content>ESRD GFR <15 ON ORNAMENTAL IRON ERECTOR</content>
<content></content> Glomerular filtration rate/1.73 sq M pre dicted among non-blacks [Volume Rate/Area] in Serum or Plasma by Creatinine-based formula (MDRD) >= 60 mL/min [facility] A/G Ratio 1.25 CALC 1.00-1.90 [facility] ([facility]) ID Date Data Source [id number] 06/20/2019 09:26:00 AM EST [facility] ([facility]) Name Value Range Interpretation Code Description Data Neelima rce(s) Supporting Document(s) Glucose mean value [Mass/volume] in Blood Estimated fr om glycated hemoglobin 243 mg/dL 60-110 [facility] Hemoglobin A1c/Hemoglobin.total in Blood 10.1 g/dL 4.8-5.6 [facility] Lab Result Notes: Pre-Diabetes 5.7 - 6.4 % Diabetes = or > 6.5% ID Date Data Source [id number] 06/20/2019 09:26:00 AM EST [facility] ([facility]) Name Value Range Interpretation Code Description Data Neelima rce(s) Supporting Document(s) Leukocytes [#/volume] in Blood by Automated count 13.5 x10*3/UL 4.1-1 0.9 [facility] ([facility]) NOTE: RESULT VERIFIED. Erythrocytes [#/volume] in Blood by Automated count 4.41 x10*6/UL 4.2 0-6.30 [facility] ([facility]) Hemoglobin [Mass/volume] in Blood 13.7 g/dL 12.0-18.0 [facility] ([facility]) Hematocrit [Volume Fraction] of Blood by Automated count 39.3 % 3 7.0-51.0 [facility] ([facility]) MCV 89.0 fL 80.0-97.0 [facility] ([facility]) Erythrocyte distribution width [Ratio] by Automated count 12.0 % 11.6-13.7 [facility] ([facility]) MCH 31.1 pg 26.0-32.0 [facility] MCHC 34.9 g/dL 31.0-38.0 [facility] Lymph % 35.7 % 10.0-58.5 [facility] MPV 8.8 FL 7.8-11.0 [facility] ([facility]) Platelets [#/volume] in Blood by Automated count 294 x10*3/UL 140-440 [facility] ([facility]) Mid % 8.8 % 1.7-9.3 [facility] Neut % 55.5 % 37.0-92.0 [facility] Mid # 1.2 x10*3/UL 0.1-0.6 [facility] ([facility]) Lymph # 4.8 x10*3/UL 0.6-4.1 [facility] ([facility]) Neut # 7.5 x10*3/UL 2.0-7.8 [facility] ([facility]) ID Date Data Source [id number] 06/20/2019 09:25:00 AM EST [facility] ([facility]) Name Value Range Interpretation Code Description Data Neelima rce(s) Supporting Document(s) Cholesterol in LDL [Mass/volume] in Serum or Plasma by Direct as say <pending> [facility] Procedure Vital Signs ID Date Data Source UNK Name Value Range Interpretation Code Description Data Source(s) Body mass index (BMI) [Ratio] 35.1 kg/m2 35.1 k g/m2 [facility] ([facility]) Oxygen saturation in Arterial blood by Pulse oximetry 96 % 96 % [facility] Body weight 216.00 [lb_av] 216.00 [lb_av] [facility] ([facility]) Body height 65.75 [in_i] 65.75 [in_i] [facility] ([facility]) 5'5.75" Heart rate 68 /min 68 /min [facility] ([facility]) Diastolic blood pressure 60 mm[Hg] 60 mm[Hg] [facility]) Systolic blood pressure 104 mm[Hg] 104 mm[Hg] [facility] ([facility]) Body mass index (BMI) [Ratio] 37.1 kg/m2 37.1 k g/m2 [facility] ([facility]) Oxygen saturation in Arterial blood by Pulse oximetry 97 % 97 % [facility] ([facility]) RM Air Body weight 228.00 [lb_av] 228.00 [lb_av] [facility] ([facility]) Body height 65.75 [in_i] 65.75 [in_i] [facility] ([facility]) 5'5.75" Heart rate 75 /min 75 /min [facility] ([facility]) Diastolic blood pressure 50 mm[Hg] 50 mm[Hg] [facility] ([facility]) Systolic blood pressure 96 mm[Hg] 96 mm[Hg] [facility] ([facility]) Body mass index (BMI) [Ratio] 36.0 kg/m2 36.0 k g/m2 [facility] ([facility] Heart rate 65 /min 65 /min [facility] ([facility] Diastolic blood pressure 68 mm[Hg] 68 mm[Hg] [facility] ([facility] Systolic blood pressure 100 mm[Hg] 100 mm[Hg] [facility] Body weight 230.00 [lb_av] 230.00 [lb_av] [facility] ([facility] Body height 67 [in_i] 67 [in_i] [facility] 5'7" Body mass index (BMI) [Ratio] 35.3 kg/m2 35.3 k g/m2 [facility] ([facility]) Body weight 217.00 [lb_av] 217.00 [lb_av] [facility] ([facility]) Body height 65.75 [in_i] 65.75 [in_i] [facility] 5'5.75" Heart rate 72 /min 72 /min [facility] ([facility]) Diastolic blood pressure 78 mm[Hg] 78 mm[Hg] [facility] ([facility]) Systolic blood pressure 110 mm[Hg] 110 mm[Hg] [facility] ([facility])
--- OUTSIDE RECORDS SUMMARY | 2020-06-16 04:32 | CCD | Continuity of Care Document ---
Author Author Samantha Hayden Organization Unknown Address [address] [facility] [address] [place] [address] Phone [phone] Care Team Providers Care Bird Raiser Name Role Phone Precious Hayden AUTM [phone] [employer] AUTM [phone] Problems Active Problems Provider Date Benign essential [...] Adjustable Commode 3-In-1 Misc use as needed #m06.9 1units Precious Hayden, [facility] 04/03/2020 Vascepa 1gm Capsules 1 @ din ner 30caps Precious Hayden, [facility] 04/03/2020 Fenofibrate 145mg Tablets take one tablet by mouth every day 90tabs Precious Hayden, [facility] 12/26/19 20 Rosuvastatin Calcium 40mg Tablets Take One Tablet By Mouth Every Day 90tabs Shayna Perera, [facility] 12/21 Poise Ultimate Absorbency Pads use as directed size 6 90units Precious Hayden, [facility] 07/05/2019 Drisdol 1.25mg (43528 Ut) Capsules 2 tab weekly 24caps Shayna Perera [facility] 07/04/2019 Clopidogrel Bisulfate 75mg Tablets Take One Tablet By Mouth Every Day 90tabs Nathaniel Rincon NP 01/08/2019 [employer] Ultra 2 w/Device Kit test twice a day and as directed e11.65 1units Shayna Perera [facility] 11/16 [employer] Ultra Blue Strips use twice daily to check blood sugar dx e11.65 200units Shayna Perera [facility] 12/07/2018 Furosemide 40mg Tablets take one tablet by mouth every day 90tabs Precious Hayden, [facility] 10/13/2018 Yuvafem 10mcg Tablets insert 1 tablet vginally twice weekly 24tabs Precious Hayden, [facility] 10/13 Nitroglycerin 0.4mg Tablets Sub Place 1 T`Ablet Under The Tongue Every 5 Minutes For Up To 3 Doses as Needed For Chest Discomfort 25tabs Precious Hayden, [facility] 04/13/2018 Folic Acid 800mcg Tablets 1 p o qd Precious Hayden, [facility] 03/22/2018 Humalog Kwikpen 100U nit/ML Solution Pen-Inject Inject 30 Subcutaneously Before Lunch And Dinner 15units Shayna Perera [facility] 12/28/2017 Clobetasol Propionate Emollient 0.05% Cream apply small amount to rash twice daily for intermittently 60gm Shayna Perera [facility] 12/21/2017 Tresiba Flextouch 20 0Unit/ML Solution Pen-Inject [...] at bedtime as needed 30caps Shayna Perera [facility] 03/[address] Take One Tablet By Mouth Every Day 90tabs Precious Hayden, [facility] 01/22/2017 Lancets Ultra Fine Misc test 3 times a day DX E11.40 200units Precious Hayden, [facility] 07/01/2016 Gabapentin 800mg Tablets take one tablet by mouth twice a day 180tabs Precious Hayden, [facility] 2015 Novofine Plus 32G X 4 mm Misc use three times a day or as directed for insulin 300units Precious Hayden, JOSE C 01/25/2016 Pantoprazole Sodium 40mg Tablets D R take one tablet by mouth every day 90tabs Precious Hayden, Nathaniel YOUNG 09/13/2015 Potassium Chloride Laya ER 20Meq Tablets ER Take One Tablet By Mouth Every Day 60tabs Shayna Perera [facility] 12/04/2014 Prolia 60mg/ml Soln Prefill Syring e inject 60 mg under the skin every 6 months 1units Precious avelar, [facility] 10/12/2013 Optivar 0.05% Solution Instill One Drop Twice A Day In Each Eye as Needed 18units Precious Littlejohn r, [facility] 02/02/2013 Alcohol Wipes 70% Pads qid DX E11.40 2Boxes Shayna Perera [facility] 09/04/2010 C-Pap Mask And Supplies use as directed 1units Precious Orellana D.O. 01/18/2010 Atenolol 50mg Tablets take one tablet by mouth every morning 90tabs Precious Hayden, JOSE C 010 Tylenol 8 Hour 650mg Tablets ER 1 by mouth three times a day Unknown Centrum Silver 50+Women 50+Women T ablets 1 by mouth every day Unknown Medications Administered in Office Medication SIG Qnty Indications Ordering Provider Date Prolia (denosumab) 60mg,SC injection, ND C#[id number] Injection Precious Boggs er, ANP 06/20/2019 Therapeutic Injection Injection Precious Hayden, ANP 06/20/2019 Prolia (denosumab) 60mg,SC injection, ND C#[id number] Injection Precious Boggs er, ANP 10/06/2018 Chemotherpy Admin Subcutaneous/Im Non-Ho rmonal Anti-Neoplastic Injection Nurse [facility] 10/06/2018 Prolia (denosumab) 60mg,SC injection, ND C#[id number] Injection Precious Friedman , ANP 04/12/2018 Administration Of Flu Vaccine Inj ection Precious Hayden, ANP 04/12/2018 Chemotherpy Admin Subcutaneous/Im Non-Ho rmonal Anti-Neoplastic Injection Precious staley, ANP 04/12/2018 Prolia (denosumab) 60mg,SC injection, ND C#[id number] Injection Precious Friedman er, ANP 10/06/2017 Chemotherpy Admin Subcutaneous/Im Non-Ho rmonal Anti-Neoplastic Injection Precious staley, ANP 10/06/2017 Administration Of Flu Vaccine Inj ection Torres Alexandro, [facility] 03/03/2017 Chemotherpy Admin Subcutaneous/Im Non-Ho rmonal Anti-Neoplastic Injection Precious staley, ANP 12/29/2016 Administration Of Flu Vaccine Inj ection Precious Hayden, [facility] 03/31/2016 Chemotherpy Admin Subcutaneous/Im Non-Ho rmonal Anti-Neoplastic Injection Precious staley, ANP 06/20/2015 Administration Of Flu Vaccine Inj ection Precious Hayden, [facility] 03/20/2015 Chemotherpy Admin Subcutaneous/Im Non-Ho rmonal Anti-Neoplastic Injection Precious staley, ANP 08/01/2014 Chemotherpy Admin Subcutaneous/Im Non-Ho rmonal Anti-Neoplastic Injection Shayna Dumont, [facility] 11/09/2013 Chemotherpy Admin Subcutaneous/Im Non-Ho rmonal Anti-Neoplastic Injection Nurse Brielle farah 04/27/2013 Administration Of Flu Vaccine Inj ection Precious Hayden, ANP 03/09/2013 Administration Of Flu Vaccine Inj ection Precious Liu Jackelyn, ANP 02/03/2011 Administration Of Flu Vaccine Inj ection Precious Liu Jackelyn, ANP 04/01/2010 Immunizations CPT Code Status Date Vaccine Lot # [id number] Given 04/03/2020 Influenza Vaccin e Quadrivalent Preser/Antibiotic Free Im Use [id number] 84048 Given 04/12/2018 Influenza Virus Vaccine, Quadrivalent (Cciiv4), Derived From 9 Given 03/03/2017 Influenza Vaccin e Quadrivalent Preser/Antibiotic Free Im Use [id number] Q2037 Given 03/31/2016 Fluvirin Virus Vaccine 91180 01 Q2037 Given 03/20/2015 Fluvirin Virus Vaccine 20059 01 Q2037 Given 03/09/2013 Fluvirin Virus Vaccine 21798 01 Q2037 Given 02/03/2011 Fluvirin Virus Vaccine 43311 Given 04/01/2010 Influenza Virus Vaccine 11877 Given 12/30/2007 Pneumovax 23 Vital Signs Date [...] Date Facility Test Result H/L Range Note Laboratory test finding 04/03/2020 [facility] [address] [place] [address] [phone] Vitamin B12 Level <pending> Laboratory test finding 04/03/2020 [facility] guardado Merchandising Lead: [place] [address] [phone] A1c <pending> Laboratory test finding 04/03/2020 [facility] octavio guardado Merchandising Lead: Dr Fabiano Mcgowan [place], [place] [id number] [phone] TSH <pending> Complete Blood Count 12/20/2019 [facility] Merchandising Lead: [place] [address] [phone] WBC 9.9 x10*3/UL 4.1 - 10.9 RBC [...] 4.9 x10*3/UL 2.0 - 7.8 A1c 12/20/2019 [facility] Merchandising Lead: [place] [address] [phone] Hba1c 10.7 g/dL High 4.8 - 5.6 1 Est Avg Glucose 260 mg/dL High 60 - 110 Comprehensive Chem Profile 12/20/2019 [facility] Merchandising Lead: [place] [address] [phone] Glucose 223 mg/dL High 74 - 99 2 BUN 22 mg/dL High 7 - 18 [...] mL/min >60 GFR >= 60 mL/min >60 3 Lipid Profile 12/20/2019 [facility] Merchandising Lead: [place] [address] [phone] Cholesterol 205 mg/dL High 131 - 200 Triglycerides 619 mg/dL High 30 - 150 HDL Cholesterol 32 mg/dL Low 35 - 60 LDL (Calculated) Unable to calcul <SEE NOTE> CALC 50 - 159 4 Laboratory test finding 12/20/2019 [facility] Merchandising Lead: [place] [address] [phone] Vitamin D 25-Hydroxy 38.0 24.0 - 80.0 5 Laboratory test finding 12/20/2019 [facility] [address] [id number] [phone] LDL Direct SEE SEPARATE REP <SEE NOTE> mg/dL Normal 6 1 Lab Result Notes: Pre-Diabetes 5.7 - 6.4 % Diabetes = or > 6.5% 2 100-125 mg/dL PRE-DIABET ES/FASTING >126 mg/dL DIABETES/FASTING 3 CHRONIC KIDNEY DISEASE STAGI NG PER NKF STAGE I & II GFR >= 60 NORMAL TO MILDLY DECREASED STAGE III GFR 30-59 MODERATELY DECREASED STAGE IV GFR 15-29 SEVERELY DECREASED STAGE V GFR <15 VERY LITTLE GFR LEFT ESRD GFR <15 ON PROFESSOR OF THEATRE 4 Unable to calculate 5 This test was performed [employer] Vitamin D immunoassay kit. Values obtained with different assay methods should not be used interchangeably. 6 SEE SEPARATE REPORT Testing performed at reference lab . Report copy to follow on a separate form. 01/26/20 REF LAB#:[id number] Procedures Date Code Description Status 12/15/2019 [id number] Diabetic Retinal Eye Exam Comple marcus 11/16/2018 [id number] Mammogram Completed 11/11/2018 [id number] Diabetic Retinal Eye Exam Comple marcus 06/01/2017 242432720 Diabetic Retinal Eye Exam Comple marcus 05/13/2017 [id number] Mammogram Completed 05/08/2016 [id number] Mammogram Completed 05/04/2015 113508214 Bone Mineral Density Test Comple marcus 05/04/2015 [id number] Mammogram Completed 01/19/2015 [id number] Diabetic Foot Exam Completed 03/29/2013 [id number] Mammogram Completed 09/20/2012 037674769 Diabetic Foot Exam Completed 08/10/2012 [id number] Bone Mineral Density Test Comple marcus 03/02/2012 [id number] Mammogram Completed 04/17/2011 [id number] Mammogram Completed 02/24/2011 [id number] Mammogram Completed 06/04/2010 [id number] Colonoscopy Completed 06/08/2009 [id number] Mammogram Completed 05/18/2008 [id number] Colonoscopy Completed Medical Devices Description No Information Available Encounters Type Date Location Provider Dx Diagnosis Office Visit 12/20/2019 3:00p [facility] 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 I11.0 Hypertensive heart disease w ith heart failure I50.32 Chronic diastolic (congestiv e) heart failure E78.2 Mixed hyperlipidemia E55.9 Vitamin D deficiency, unspec ified Assessments Date Code Description Provider 03/07/2020 I10 Essential (primary) hypertension Fabiano Mcgowan [...] diabetes mellitus with hy perglycemia Shayna Perera [facility] 12/20/2019 E11.40 Type 2 diabetes mellitus with di abetic neuropathy, unspecifi Shayna Perera [facility] 12/20/2019 Z79.4 FPC (current) use of insul in Shayna Perera [facility] 12/20/2019 I25.10 Atherosclerotic hear t disease of [place] coronary artery without angina pectoris Shayna Perera [facility] 12/20/2019 I11.0 Hypertensive heart disease with heart failure Shayna Perera [facility] 12/20/2019 I50.32 Chronic diastolic (congestive) h eart failure Shayna Perera [facility] 12/20/2019 E78.2 Mixed hyperlipidemia Shayna Perera [facility] 12/20/2019 E55.9 Vitamin D deficiency, unspecifie d Shayna Perera [facility] 11/17/2019 I10 Essential (primary) hypertension Fabiano Mcgowan MD 11/17/2019 E78.00 Pure hypercholesterolemia, unspe cidonovan Mcgowan MD 11/17/2019 E78.2 Mixed hyperlipidemia Fabiano Mcgowan MD 11/17/2019 E66.09 Other obesity due to excess ewstley jh Fabiano Mcgowan MD 11/14/2019 I10 Essential (primary) hypertension Fabiano Mcgowan MD 11/14/2019 E78.00 Pure hypercholesterolemia, unspe cified Fabiano Mcgowan MD 11/14/2019 E03.9 Hypothyroidism, unspecified Abiodun leonor Mcgowan MD 11/14/2019 E11.65 Type 2 diabetes mellitus with hy perglycemia Fabiano Mcgowan MD 10/11/2019 I10 Essential (primary) hypertension Fabiano Mcgowan MD 10/11/2019 E78.00 Pure hypercholesterolemia, unspe cified Fabiano Mcgowan MD 10/11/2019 E03.9 Hypothyroidism, unspecified Abiodun leonor Mcgowan MD 10/11/2019 E11.65 Type 2 diabetes mellitus with hy perglycemia Fabiano Mcgowan MD Plan of Treatment 04/03/2020 - JOSE C Rincon* All * New Medication:* Trulicity 1.5 mg/0.5ML - 1 injection weekly * Adjustable Commode 3-In-1 - use as needed #m06.9 * Vascepa 1 gm - 1 @ dinner * Immunizations/Injections:* Therapeutic Injection Functional Status Description No Information Available Mental Status Description No Information Available Referrals Description No Information Available
[2020-06-16] MEDS ORDERED: CLOP75TA2 PO (04:52)
[2020-06-16] MEDS ORDERED: PANT40TA29 PO (04:52)
[2020-06-16] MEDS ORDERED: ESTR10TA VG (04:52)
[2020-06-16] MEDS ORDERED: FENO145T7 PO (04:52)
[2020-06-16] MEDS ORDERED: ASPI81CH33 PO (04:52)
[2020-06-16] MEDS ORDERED: VITA50005 PO (04:52)
[2020-06-16] MEDS ORDERED: ROSU40TA4 PO (04:52)
[2020-06-16] MEDS ORDERED: LEVO112T2 PO (04:52)
[2020-06-16] MEDS ORDERED: CYCL5TAB PO (04:52)
[2020-06-16] MEDS ORDERED: TRUL0.5I SUBQ (04:52)
[2020-06-16] MEDS ORDERED: FOLI1TAB11 PO (04:52)
[2020-06-16] MEDS ORDERED: TRES1INJ SUBQ (04:52)
[2020-06-16] MEDS ORDERED: POTA20TA6 PO (04:52)
[2020-06-16] MEDS ORDERED: FURO40TA2 PO (04:52)
[2020-06-16] MEDS ORDERED: HUMA100I5 SUBQ (04:52)
[2020-06-16] MEDS ORDERED: ATEN50TA2 PO (04:52)
[2020-06-16] MEDS ORDERED: GABA800T4 PO (04:52)
--- OUTSIDE RECORDS SUMMARY | 2020-06-16 05:41 | CCD ---
Author Author [facility] Organization [facility] Address Unknown Phone Unavailable Care Team Providers Care Experimental Electronics Developer Name Role Phone Fons, M Shayna SIFTER AND MILLER Unavailable Unavailable Fons, M Shayna SIFTER AND MILLER Unavailable Unavailable Fons, M Shayna SIFTER AND MILLER Unavailable Unavailable Fons, M Shayna SIFTER AND MILLER Unavailable Unavailable Fons, M Shayna SIFTER AND MILLER Unavailable Unavailable Fons, M Shayna SIFTER AND MILLER Unavailable Unavailable Fons, M Shayna SIFTER AND MILLER Unavailable Unavailable Fons, M Shayna SIFTER AND MILLER Unavailable Unavailable Fons, M Shayna SIFTER AND MILLER Unavailable Unavailable Fons, M Shayna SIFTER AND MILLER Unavailable Unavailable Fons, M Shayna SIFTER AND MILLER Unavailable Unavailable Fons, M Shayna SIFTER AND MILLER Unavailable Unavailable Fons, M Shayna SIFTER AND MILLER Unavailable Unavailable Fons, M Shayna SIFTER AND MILLER Unavailable Unavailable Fons, M Shayna SIFTER AND MILLER Unavailable Unavailable Fons, M Shayna SIFTER AND MILLER Unavailable Unavailable Fons, M Shayna SIFTER AND MILLER Unavailable Unavailable Fons, M Shayna SIFTER AND MILLER Unavailable Unavailable Fons, M Shayna SIFTER AND MILLER Unavailable Unavailable Fons, M Shayna SIFTER AND MILLER Unavailable Unavailable Fons, M Shayna SIFTER AND MILLER Unavailable Unavailable Fons, M Shayna SIFTER AND MILLER Unavailable Unavailable Fons, M Shayna SIFTER AND MILLER Unavailable Unavailable Fons, M Shayna SIFTER AND MILLER Unavailable Unavailable Fons, M Shayna SIFTER AND MILLER Unavailable Unavailable Fons, M Shayna SIFTER AND MILLER Unavailable Unavailable Fons, M Shayna SIFTER AND MILLER Unavailable Unavailable Fons, M Shayna SIFTER AND MILLER Unavailable Unavailable Fons, M Shayna SIFTER AND MILLER Unavailable Unavailable Fons, M Shayna SIFTER AND MILLER Unavailable Unavailable Fons, M Shayna SIFTER AND MILLER Unavailable Unavailable Fons, M Shayna SIFTER AND MILLER Unavailable Unavailable Fons, M Shayna SIFTER AND MILLER Unavailable Unavailable Fons, M Shayna SIFTER AND MILLER Unavailable Unavailable Fons, M Shayna SIFTER AND MILLER Unavailable Unavailable Fons, M Shayna SIFTER AND MILLER Unavailable Unavailable Fons, M Shayna SIFTER AND MILLER Unavailable Unavailable Fons, M Shayna SIFTER AND MILLER Unavailable Unavailable Fons, M Shayna SIFTER AND MILLER Unavailable Unavailable Fons, M Shayna SIFTER AND MILLER Unavailable Unavailable Fons, M Shayna SIFTER AND MILLER Unavailable Unavailable Fons, M Shayna SIFTER AND MILLER Unavailable Unavailable Fons, M Shayna SIFTER AND MILLER Unavailable Unavailable Fons, M Shayna SIFTER AND MILLER Unavailable Unavailable Fons, M Shayna SIFTER AND MILLER Unavailable Unavailable Fons, M Shayna SIFTER AND MILLER Unavailable Unavailable Fons, M Shayna SIFTER AND MILLER Unavailable Unavailable Fons, M Shayna SIFTER AND MILLER Unavailable Unavailable Fons, M Shayna SIFTER AND MILLER Unavailable Unavailable Fons, M Shayna SIFTER AND MILLER Unavailable Unavailable Fons, M Shayna SIFTER AND MILLER Unavailable Unavailable Fons, M Shayna SIFTER AND MILLER Unavailable Unavailable Fons, M Shayna SIFTER AND MILLER Unavailable Unavailable Fons, M Shayna SIFTER AND MILLER Unavailable Unavailable MAJAK, R MARY DPM Unavailable [...] R MARY DPM Unavailable Unavailable MAJAK, R AMRY DPM Unavailable Unavailable MAJAK, R MARY DPM Unavailable Unavailable MAJAK, R MARY DPM Unavailable Unavailable MAJAK, R MARY DPM Unavailable Unavailable MAJAK, R MARY DPM Unavailable Unavailable MAJAK, R MARY DPM Unavailable Unavailable MAJAK, R MARY DPM Unavailable Unavailable Sal, N Ne LIVESTOCK NUTRITIONIST Unavailable Unavailable [place], N Ne LIVESTOCK NUTRITIONIST Unavailable Unavailable [place], N Ne LIVESTOCK NUTRITIONIST Unavailable Unavailable Sal, N Ne LIVESTOCK NUTRITIONIST Unavailable Unavailable [place], N Ne LIVESTOCK NUTRITIONIST Unavailable Unavailable [place], N Ne LIVESTOCK NUTRITIONIST Unavailable Unavailable Sal, N Ne LIVESTOCK NUTRITIONIST Unavailable Unavailable [place], N Ne LIVESTOCK NUTRITIONIST Unavailable Unavailable [place], N Ne LIVESTOCK NUTRITIONIST Unavailable Unavailable [place], N Ne LIVESTOCK NUTRITIONIST Unavailable Unavailable [place], N Ne LIVESTOCK NUTRITIONIST Unavailable Unavailable Sal, N Ne LIVESTOCK NUTRITIONIST Unavailable Unavailable Sal, N Ne LIVESTOCK NUTRITIONIST Unavailable Unavailable Sal, N Ne LIVESTOCK NUTRITIONIST Unavailable Unavailable [place], N Ne LIVESTOCK NUTRITIONIST Unavailable Unavailable Sal, N Ne LIVESTOCK NUTRITIONIST Unavailable Unavailable Sal, N Ne LIVESTOCK NUTRITIONIST Unavailable Unavailable Sal, N Ne LIVESTOCK NUTRITIONIST Unavailable Unavailable [place], N Ne LIVESTOCK NUTRITIONIST Unavailable Unavailable [place], N Ne LIVESTOCK NUTRITIONIST Unavailable Unavailable [place], N Ne LIVESTOCK NUTRITIONIST Unavailable Unavailable Sal, N Ne LIVESTOCK NUTRITIONIST Unavailable Unavailable [place], N Ne LIVESTOCK NUTRITIONIST Unavailable Unavailable [place], N Ne LIVESTOCK NUTRITIONIST Unavailable Unavailable [place], N Ne LIVESTOCK NUTRITIONIST Unavailable Unavailable [place], N Ne LIVESTOCK NUTRITIONIST Unavailable Unavailable Sal, N Ne LIVESTOCK NUTRITIONIST Unavailable Unavailable [place], N Ne LIVESTOCK NUTRITIONIST Unavailable Unavailable [place], N Ne LIVESTOCK NUTRITIONIST Unavailable Unavailable [place], N Ne LIVESTOCK NUTRITIONIST Unavailable Unavailable [place], N Ne LIVESTOCK NUTRITIONIST Unavailable Unavailable [place], M Shayna PRINTING SHOP SUPERVISOR Unavailable Unavailable [place], M Shayna PRINTING SHOP SUPERVISOR Unavailable Unavailable [place], M Shayna PRINTING SHOP SUPERVISOR Unavailable Unavailable [place], M Shayna PRINTING SHOP SUPERVISOR Unavailable Unavailable [place], M Shayna PRINTING SHOP SUPERVISOR Unavailable Unavailable [place], M Shayna PRINTING SHOP SUPERVISOR Unavailable Unavailable [place], M Shayna PRINTING SHOP SUPERVISOR Unavailable Unavailable [place], M Shayna PRINTING SHOP SUPERVISOR Unavailable Unavailable [place], M Shayna PRINTING SHOP SUPERVISOR Unavailable Unavailable [place], M Shayna PRINTING SHOP SUPERVISOR Unavailable Unavailable [place], M Shayna PRINTING SHOP SUPERVISOR Unavailable Unavailable [place], M Shayna PRINTING SHOP SUPERVISOR Unavailable Unavailable [place], M Shayna PRINTING SHOP SUPERVISOR Unavailable Unavailable [place], M Shayna PRINTING SHOP SUPERVISOR Unavailable Unavailable [place], M Shayna PRINTING SHOP SUPERVISOR Unavailable Unavailable [place], M Shayna PRINTING SHOP SUPERVISOR Unavailable Unavailable [place], M Shayna PRINTING SHOP SUPERVISOR Unavailable Unavailable [place], M Shayna PRINTING SHOP SUPERVISOR Unavailable Unavailable [place], M Shayna PRINTING SHOP SUPERVISOR Unavailable Unavailable [place], M Shayna PRINTING SHOP SUPERVISOR Unavailable Unavailable [place], M Shayna PRINTING SHOP SUPERVISOR Unavailable Unavailable [place], M Shayna PRINTING SHOP SUPERVISOR Unavailable Unavailable [place], M Shayna PRINTING SHOP SUPERVISOR Unavailable Unavailable [place], M Shayna PRINTING SHOP SUPERVISOR Unavailable Unavailable [place], M Shayna PRINTING SHOP SUPERVISOR Unavailable Unavailable [place], M Shayna PRINTING SHOP SUPERVISOR Unavailable Unavailable [place], M Shayna PRINTING SHOP SUPERVISOR Unavailable Unavailable [place], M Shayna PRINTING SHOP SUPERVISOR Unavailable Unavailable [place], M Shayna PRINTING SHOP SUPERVISOR Unavailable Unavailable [place], M Shayna PRINTING SHOP SUPERVISOR Unavailable Unavailable [place], M Shayna PRINTING SHOP SUPERVISOR Unavailable Unavailable [place], M Shayna PRINTING SHOP SUPERVISOR Unavailable Unavailable [place], M Shayna PRINTING SHOP SUPERVISOR Unavailable Unavailable [place], M Shayna PRINTING SHOP SUPERVISOR Unavailable Unavailable [place], M Shayna PRINTING SHOP SUPERVISOR Unavailable Unavailable [place], M Shayna PRINTING SHOP SUPERVISOR Unavailable Unavailable [place], M Shayna PRINTING SHOP SUPERVISOR Unavailable Unavailable [place], M Shayna PRINTING SHOP SUPERVISOR Unavailable Unavailable [place], M Shayna PRINTING SHOP SUPERVISOR Unavailable Unavailable [place], M Shayna PRINTING SHOP SUPERVISOR Unavailable Unavailable [place], M Shayna PRINTING SHOP SUPERVISOR Unavailable Unavailable [place], M Shayna PRINTING SHOP SUPERVISOR Unavailable Unavailable [place], M Shayna PRINTING SHOP SUPERVISOR Unavailable Unavailable [place], M Shayna PRINTING SHOP SUPERVISOR Unavailable Unavailable [place], M Shayna PRINTING SHOP SUPERVISOR Unavailable Unavailable [place], M Shayna PRINTING SHOP SUPERVISOR Unavailable Unavailable [place], M Shayna PRINTING SHOP SUPERVISOR Unavailable Unavailable [place], M Shayna PRINTING SHOP SUPERVISOR Unavailable Unavailable [place], M Shayna PRINTING SHOP SUPERVISOR Unavailable Unavailable [place], M Shayna PRINTING SHOP SUPERVISOR Unavailable Unavailable [place], M Shayna PRINTING SHOP SUPERVISOR Unavailable Unavailable [place], M Shayna PRINTING SHOP SUPERVISOR Unavailable Unavailable [place], M Shayna PRINTING SHOP SUPERVISOR Unavailable Unavailable [place], M Shayna PRINTING SHOP SUPERVISOR Unavailable Unavailable [place], M Shayna PRINTING SHOP SUPERVISOR Unavailable Unavailable [place], Cait SIFTER AND MILLER Unavailable Unavailable [place], Cait SIFTER AND MILLER Unavailable Unavailable [place], Cait SIFTER AND MILLER Unavailable Unavailable [place], Cait SIFTER AND MILLER Unavailable Unavailable [place], Cait SIFTER AND MILLER Unavailable Unavailable [place], Cait SIFTER AND MILLER Unavailable Unavailable [place], Cait SIFTER AND MILLER Unavailable Unavailable [place], Cait SIFTER AND MILLER Unavailable Unavailable [place], Cait SIFTER AND MILLER Unavailable Unavailable [place], Cait SIFTER AND MILLER Unavailable Unavailable [place], Cait SIFTER AND MILLER Unavailable Unavailable [place], Cait SIFTER AND MILLER Unavailable Unavailable Mile, Cait SIFTER AND MILLER Unavailable Unavailable [place], Cait SIFTER AND MILLER Unavailable Unavailable [place], Cait SIFTER AND MILLER Unavailable Unavailable [place], Cait SIFTER AND MILLER Unavailable Unavailable [place], Cait SIFTER AND MILLER Unavailable Unavailable [place], Cait SIFTER AND MILLER Unavailable Unavailable [place], Cait SIFTER AND MILLER Unavailable Unavailable [place], Cait SIFTER AND MILLER Unavailable Unavailable [place], Cait SIFTER AND MILLER Unavailable Unavailable [place], Cait SIFTER AND MILLER Unavailable Unavailable [place], Cait SIFTER AND MILLER Unavailable Unavailable [place], Cait SIFTER AND MILLER Unavailable Unavailable [place], Cait SIFTER AND MILLER Unavailable Unavailable [place], Cait SIFTER AND MILLER Unavailable Unavailable [place], Cait SIFTER AND MILLER Unavailable Unavailable NISHI, J Precious ANP Unavailable [...] is protected by Article 27-F of the [facility] Public Health law. If you continue you may have access to information: Regarding HIV / AIDS; Provided by facilities licensed or operated by the [facility] Office of Mental Health; or Provided by the [facility] Office for People With Developmental Disabilities. If such information is present, then the following [facility] mandated warning applies: This information has been [...] law may result in a fine or fdc sentence or both. A general authorization for the release of medical or other information is NOT sufficient authorization for further disc losure. Family History Family Member Name Family Member Gender Family Member Status Date o f Status Description Data Source(s) Unknown Male Problem [facility] ([facility]) Unknown Male Problem [facility] ([facility] () - age 69 Encounters Encounter Providers Location Date Indications Data Source(s ) Outpatient Attender: Precious Clark 08:00:00 AM EST [facility] ([facility] ) Outpatient Attender: Ne LAIRD.ONEL-SHARMIN 02/07/2020 12 :00:00 AM EDT [facility] Outpatient Attender: Shayna GOODRICH Juan M Eduardo 12/19 03:00:00 PM EDT [facility] ([facility] ) Outpatient Attender: MRAY BRUNO DPM [place] [facility] 11/16 01:30:00 PM EDT [facility] ([facility] Outpatient Referrer: Cait MIKE 11/10/2019 02:31:00 PM EDT [facility] Outpatient Attender: Shayna Jorge SIFTER AND MILLER [email or web address] 0 12:00:00 AM EST - 07/05/2019 02:16:07 PM EST [facility] Immunizations Vaccine Date Status Description Data Source(s) Influenza, injectable, MDCK, preservative free, viet valent 04/03/2020 07:58:00 AM EST completed [facility] ([place] [facility]) Medications Medication Brand Name Start Date [...] Vascepa 04/03/2020 12:00:00 AM EST active [facility] ([facility]) Administration Of Flu Vaccine 04/03/2020 12:00:00 AM EST completed [facility] ([place] [facility]) Medication administered onsite 0.5 ML dulaglutide 3 MG/ML Auto-Injector [Trulicity] Narcisoi ty 04/03/2020 12:00:00 AM EST active M EDENT ([facility]) Adjustable Commode 3-In-1 04/03/2020 12:00:00 AM EST active [facility] ([facility]) 1.5 mg/0.5 mL 04/03/2020 12:00:00 AM [...] DOSE = THREE TABLETS SOLD: 06/02/2020 Anthony Proximex pantoprazole 40 MG Delayed Release Oral Tablet PANTOPRAZOLE SODIUM 03/16/2020 12:00:00 AM EDT tablet,delayed release (DR/EC) 90 T DEBORAH ONE TABLET BY MOUTH EVERY DAY TAKE ONE TABLET BY MOUTH EVERY DAY SOLD: 06/13/2020 Cruz Proximex 32 gauge x 1/6" 03/16/2020 12:00:00 AM EDT needle 270 USE THREE TIMES A DAY OR DIRECTED FOR INSULIN USE THREE TIMES A DAY OR DIRECTED FOR INSULIN SOLD: 06/13/2020 Cruz Proximex INCONTINENCE PAD,LINER,DISP 03/16/2020 12:00:00 AM EDT pad [...] 12/26/2019 12:00:00 AM EDT ORAL active [facility] ([facility]) Rosuvastatin calcium 40 MG Oral [...] Calcium 12/22/2019 12:00:00 AM EDT active [facility] ([facility]) 112 mcg 12/22/2019 12:00:00 AM [...] DAILY DOSE = 3 TABLETS SOLD: 08/29/2019 Coinplug Fluconazole 150 MG Oral Tablet [Diflucan] Diflucan 07/07/2019 1 2:00:00 AM EST ORAL completed [facility] ([facility]) 5 mg 07/07/2019 12:00:00 AM [...] Absorbency 07/05/2019 12:00:00 AM EST active [facility] ([facility]) Ergocalciferol 30809 UNT Oral Capsule [Drisdol] Drisdol 07/04/2019 12:00:00 AM EST active [facility] ([facility]) 20 mg 07/03/2019 12:00:00 AM [...] Long 07/01/2019 12:00:00 AM EST completed [facility] ([facility]) Prolia (denosumab) 60mg,SC injection, [facility]#[id number] 06/20/2019 12:00:00 AM EST completed [facility] ([facility]) Medication administered onsite Therapeutic Injection 06/20/2019 12:00:00 AM EST completed [facility] ([facility]) Medication administered onsite 20 mEq 06/15/2019 [...] type / Coverage type Policy ID Covered constitution party ID Covered constitution party's relationship to palacio Policy Palacio Plan Information FABIOEDNY [id number] SP [id number] MEDICARE COMPLETE [id number] SP [id number] MEDICAID [id number] Margie [id number] [facility] MEDICARE [id number] Margie [id number] 75 [facility](MCAID) O [id number] S [id number] MEDICAID M [id number] S [id number] MEDICAID [id number] SP [id number] [facility] [id number] SP [id number] [facility] MEDICAID [id number] Margie [id number] [facility] MEDICAID [id number] Margie [id number] 75 [facility] [id number] SP [id number] MEDICAID [id number] SP [id number] [facility] O UNAVAILABLE S UNAVAILABLE Medicare Natl Govt Servic Medicare Primary [id number] Self [id number] Medicaid Medigap Part B [id number] Self [id number] Wellcare/Todays Optmcr Commercial [id number] Self [id number] eEvent [id number] Self [id number] Medicare C [id number] SELF [id number] Medicare C need SELF need Medicare Natl Govt Servic Medicare Primary [id number] Self [id number] Medicaid Medigap Part B [id number] Self [id number] Wellcare/Todays Optmcr Commercial [id number] Self [id number] Medicare Natl Govt Servic Medicare Primary [id number] Self [id number] Medicaid Medigap Part B [id number] Self [id number] Wellcare/Todays Optmcr Commercial [id number] Self [id number] Medicare [facility] Medigap Part B [id number] Self [id number] [facility] Commercial [id number] Self [id number] [place] Medig[place] Part B [id number] Self [id number] Medicare [facility] Medigap Part B [id number] Self [id number] [facility] Commercial [id number] Self [id number] [facility] O [id number] S [id number] Medicaid Medicaid [id number] Self [id number] [id number] Comm Dual Plan Commercial [id number] Self [id number] TODAYS OPTIONS [id number] [place] [id number] TODAYS OPTIONS/PARAGUAYAN O [id number] S [id number] Medicare Natl Govt Servic Medicare Primary [id number] Self [id number] Medicaid Medigap Part B [id number] Self [id number] Todays Option Medicare Commercial [id number] Self [id number] Medicaid Medicaid [id number] Self [id number] Uhc Comm Dual Plan Commercial [id number] Self [id number] Medicaid Medicaid [id number] Self [id number] Today's Option Commercial [id number] Self [id number] Medicare Natl Govt Servic Medicare Primary [id number] Self [id number] Medicaid Medigap Part B [id number] Self [id number] Todays Option Medicare Commercial [id number] Self [id number] eEvent [id number] Self [id number] Medicare Natl Govt Servic Medicare Primary [id number] Self [id number] Medicaid Medigap Part B [id number] Self [id number] Todays Option Medicare Commercial [id number] Self [id number] Medicaid Medicaid [id number] Self [id number] Today's Option Commercial [id number] Self [id number] Medicare Natl Govt Servic Medicare Primary [id number] Self [id number] Medicaid Medigap Part B [id number] Self [id number] Todays Option Medicare Commercial [id number] Self [id number] Medicare Natl Govt Servic Medicare Primary [id number] Self [id number] Medicaid Medigap Part B [id number] Self [id number] Todays Option Medicare Commercial [id number] Self [id number] Medicaid Medicaid [id number] Self [id number] Today's Option Commercial [id number] Self [id number] Medicaid Medicaid [id number] Self [id number] Today's Option Commercial [id number] Self [id number] Medicare Natl Govt Servic Medicare Primary [id number] Self [id number] Medicaid Medigap Part B [id number] Self [id number] Todays Option Medicare Commercial [id number] Self [id number] [facility] Medicare Jackelin Commercial [id number] Self [id number] Medicare Natl Govt Servic Medicare Primary [id number] Self [id number] Medicaid Medigap Part B [id number] Self [id number] Todays Option Medicare Commercial [id number] Self [id number] Medicare Natl Govt Servic Medicare Primary [id number] Self [id number] Medicaid Medigap Part B [id number] Self [id number] Todays Option Medicare Commercial [id number] Self [id number] Medicare Natl Govt Servic Medicare Primary [id number] Self [id number] Medicaid Medigap Part B [id number] Self [id number] Todays Option Medicare Commercial [id number] Self [id number] Medicare Natl Govt Servic Medicare Primary [id number] Self [id number] Medicaid Medigap Part B [id number] Self [id number] Todays Option Medicare Commercial [id number] Self [id number] Medicare Natl Govt Servic Medicare Primary [id number] Self [id number] Medicaid Medigap Part B [id number] Self [id number] Todays Option Medicare Commercial [id number] Self [id number] Medicare Natl Govt Servic Medicare Primary [id number] Self [id number] Medicaid Medigap Part B [id number] Self [id number] Todays Option Medicare Commercial [id number] Self [id number] Medicare Natl Govt Servic Medicare Primary Self [facility] Jackelin Commercial Hmo Self Hmo Medicaid Medigap Part B 1 1 Self 1 1 Todays Option Medicare Commercial Advantage Plus [id number] Self Advantage Plus [id number] MEDICAID [id number] SP [id number] Problems, Conditions, and Diagnoses Code Display Name Description Problem Type Effective Dates Data Source(s) [id number] Type 2 diabetes mellitus Type 2 diabetes mellitus Prob ismael 12/20/2019 12:00:00 AM EDT [facility] ([facility]) I10 Essential (primary) hypertension Essential (primary) h ypertension Diagnosis 02/07/2020 01:50:32 PM EDT [facility] E78.2 Mixed hyperlipidemia Mixed hyperlipidemia Diagnosis 02/07/2020 01:50:32 PM EDT [facility] I25.810 Atherosclerosis of coronary artery bypass graft(s) without angina pectoris Atherosclerosis of coronary artery bypas Diagnosis 02/07/2020 01:50:32 PM EDT [facility] E11.59 Type 2 diabetes mellitus with other circ ulatory complications Type 2 diabetes mellitus with other circ Diagnosis 07/05/2019 01:09:07 PM EST [facility] Surgeries/Procedures Procedure Description Date Indications Data [...] INJECTION SUBQ/IM 06/20/19 12:00:00 AM EST [facility] ([facility]) Results ID Date Data Source [id number] 04/03/2020 09:52:00 AM EST [facility] ([facility]) Name Value Range Interpretation Code Description Data Neelima rce(s) Supporting Document(s) LDL Direct 76 mg/dL 0-99 [facility]) Comment LDL Direct Laboratory test result [facility] ([facility]) Performed at: RN - [facility] [address] [id number] Wet End Operator: Suzan Leyva MD, Phone: [phone] ID Date Data Source [id number] 04/03/2020 09:52:00 AM EST [facility] ([facility]) Name Value Range Interpretation Code Description Data Neelima rce(s) Supporting Document(s) Cobalamin (Vitamin B12) [Mass/volume] in Serum or Plasma Lab oratory test result [id number] [facility] ([facility]) VITAMIN B12 NORMAL RANGE NORMAL 247 - 911 PG/ML INDETERMINATE 211 - 246 PG/ML DEFICIENT LESS THAN 211 PG/ML ID Date Data Source [id number] 04/03/2020 09:52:00 AM EST [facility] ([facility]) Name Value Range Interpretation Code Description Data Neelima rce(s) Supporting Document(s) Microalbumin Urine 15.9 mg/L 1.3-20.0 [facility] ([facility]) Urine Creatinine 49.8 mg/dL 30.0-125.0 [facility] ([facility]) Microalb/Creat Ratio 31.9 ug/mg 0.0-30.0 [facility] ( [facility]) ID Date Data Source [id number] 04/03/2020 09:52:00 AM EST [facility] ([facility]) Name Value Range Interpretation Code Description Data Neelima rce(s) Supporting Document(s) Thyrotropin [Units/volume] in Serum or Plasma by Detec tion limit <= 0.05 mIU/L 5.73 uIU/mL 0.36-3.74 [facility] ([facility] ) ID Date Data Source [id number] 04/03/2020 09:52:00 AM EST [facility] ([facility]) Name Value Range Interpretation Code Description Data Neelima rce(s) Supporting Document(s) Cholesterol [Mass/volume] in Serum or Plasma 193 mg/dL 131-200 [facility] ([facility]) Triglyceride [Mass/volume] in Serum or Plasma 706 mg/dL 30-150 [facility] ([facility]) Cholesterol in LDL [Mass/volume] in Serum or Plasma by calculation Laboratory test result 50-159 [facility] ([facility] ) Unable to calculate Cholesterol in HDL [Mass/volume] in Serum or Plasma 36 mg/dL 35-60 [facility] ([facility]) ID Date Data Source [id number] 04/03/2020 09:52:00 AM EST [facility] ([facility]) Name Value Range Interpretation Code Description Data Neelima rce(s) Supporting Document(s) Glucose [Mass/volume] in Serum or Plasma 628 mg/dL 74-99 Above upper panic limits [facility] ([facility]) CRITICAL: PRECIOUS ALMODOVAR NOTIFIED NOTE: RESULT VERIFIED. 100-125 mg/dL PRE-DIABETES/FASTING >126 mg/dL DIABETES/FASTING Urea nitrogen [Mass/volume] in Serum or Plasma 26 mg/dL 7-18 [facility] ([facility]) Creatinine 1.2 mg/dL 0.6-1.3 [facility]) Sodium [Moles/volume] in Serum or Plasma 129 meq/L 136-145 [facility] ([facility]) NOTE: KAYLIE VERIFIED Carbon dioxide, total [Moles/volume] in Serum or Plasma 25 meq/L 21 -32 [facility] ([facility] [facility]) Chloride [Moles/volume] in Serum or Plasma 92 meq/L 98-107 [facility] ([facility]) Potassium [Moles/volume] in Serum or Plasma 4.6 meq/L 3.5-5.1 [facility] ([facility]) Calcium [Mass/volume] in Serum or Plasma 9.8 mg/dL 8.5-10.1 [facility] ([facility]) Alkaline phosphatase isoenzyme [Units/volume] in Serum or Pl asma 97 mg/dL 46-116 [facility] ([facility]) Total Bilirubin 0.8 mg/dL 0.2-1.0 [facility] ([facility]) Alanine aminotransferase [Enzymatic activity/volume] in Seru m or Plasma 21 U/L 12-78 [facility] ([facility]) Albumin [Mass/volume] in Serum or Plasma 3.9 g/dL 3.4-5.0 [facility] ([facility]) Aspartate aminotransferase [Enzymatic activity/volume] in Serum or Plasma 16 U/L 15-37 [facility] ([facility] ) A/G Ratio 1.08 CALC 1.00-1.90 [facility] ([place] [facility]) Proteinase 3 Ab [Units/volume] in Serum 7.5 g/dL 6.4-8.2 [facility] ([facility]) Glomerular filtration rate/1.73 sq M pre dicted among non-blacks [Volume Rate/Area] in Serum or Plasma by Creatinine-based formula (MDRD) 46 mL/min [facility] Glomerular filtration rate/1.73 sq M pre dicted among blacks [Volume Rate/Area] in Serum or Plasma by Creatinine-based formula (MDRD) 55 mL/min [facility] ([facility] <content>CHRONIC KIDNEY DISEASE STAGING PER NKF</content>
<content></content>
<content>STAGE I & II GFR >= 60 NORMAL TO MILDLY DECREASED</content>
<content>STAGE III GFR 30-59 MODERATELY DECREASED</content>
<content>STAGE IV GFR 15-29 SEVERELY DECREASED</content>
<content>STAGE V GFR <15 VERY LITTLE GFR LEFT</content>
<content>ESRD GFR <15 ON [facility]NAGER CLINIC</content>
<content></content> ID Date Data Source [id number] 04/03/2020 09:52:00 AM EST [facility] ([facility]) Name Value Range Interpretation Code Description Data Neelima rce(s) Supporting Document(s) Glucose mean value [Mass/volume] in Blood Estimated fr om glycated hemoglobin 278 mg/dL 60-110 [facility] Hemoglobin A1c/Hemoglobin.total in Blood 11.3 % [facility] ([facility]) NOTE: A1C,TRIG VERIFIED Lab Result Notes: Pre-Diabetes 5.7 - 6.4 % Diabetes = or > 6.5% ID Date Data Source [id number] 04/03/2020 09:52:00 AM EST [facility] ([facility] Name Value Range Interpretation Code Description Data Neelima rce(s) Supporting Document(s) Leukocytes [#/volume] in Blood by Automated count 11.9 x10*3/UL 4.1-1 0.9 [facility] ([facility] NOTE: CBC VERIFIED Hematocrit [Volume Fraction] of Blood by Automated count 42.9 % 3 7.0-51.0 [facility] ([facility] [place] [facility] MCV 90.5 fL 80.0-97.0 [facility] ([facility]) Erythrocytes [#/volume] in Blood by Automated count 4.74 x10*6/UL 4.2 0-6.30 [facility] ([facility] Hemoglobin [Mass/volume] in Blood 14.7 g/dL 12.0-18.0 [facility] ([facility]) MCHC 34.2 g/dL 31.0-38.0 [facility] ([facility]) Erythrocyte distribution width [Ratio] by Automated count 12.6 % 11.6-13.7 [facility] ([facility]) MCH 31.0 pg 26.0-32.0 [facility] ([facility]) Lymph % 27.2 % 10.0-58.5 [facility] ([facility]) MPV 9.4 FL 7.8-11.0 [facility] ([facility]) Platelets [#/volume] in Blood by Automated count 313 x10*3/UL 140-440 [facility] ([facility] [place] [facility] Lymph # 3.2 x10*3/UL 0.6-4.1 [facility] ([facility]) Mid % 6.8 % 1.7-9.3 [facility]) Neut % 66.0 % 37.0-92.0 [facility]) Neut # 7.9 x10*3/UL 2.0-7.8 [facility] ([facility]) Mid # 0.8 x10*3/UL 0.1-0.6 [facility] ([facility]) ID Date Data Source [id number] 04/03/2020 09:52:00 AM EST [facility] ([facility]) Name Value Range Interpretation Code Description Data Neelima rce(s) Supporting Document(s) Hemoglobin A1c/Hemoglobin.total in Blood Laboratory test result [facility] ([facility]) ID Date Data Source [id number] 12/20/2019 02:38:00 PM EDT [facility] ([facility]) Name Value Range Interpretation Code Description Data Neelima rce(s) Supporting Document(s) Cholesterol [Mass/volume] in Serum or Plasma 205 mg/dL 131-200 [facility] ([facility]) Cholesterol in LDL [Mass/volume] in Serum or Plasma by calculation Laboratory test result 50-159 [facility] ([facility] ) Unable to calculate Triglyceride [Mass/volume] in Serum or Plasma 619 mg/dL 30-150 [facility] ([facility]) Cholesterol in HDL [Mass/volume] in Serum or Plasma 32 mg/dL 35-60 [facility] ([facility]) ID Date Data Source [id number] 12/20/2019 02:38:00 PM EDT [facility] ([facility]) Name Value Range Interpretation Code Description Data Neelima rce(s) Supporting Document(s) Urea nitrogen [Mass/volume] in Serum or Plasma 22 mg/dL 7-18 [facility] ([facility]) Glucose [Mass/volume] in Serum or Plasma 223 mg/dL 74-99 [facility] ([facility]) 100-125 mg/dL PRE-DIABETES/FASTING >126 mg/dL DIABETES/FASTING Potassium [Moles/volume] in Serum or Plasma 4.5 meq/L 3.5-5.1 [facility] ([facility]) Sodium [Moles/volume] in Serum or Plasma 143 meq/L 136-145 [facility] ([facility]) Creatinine 0.8 mg/dL 0.6-1.3 [facility] ([facility]) Calcium [Mass/volume] in Serum or Plasma 9.4 mg/dL 8.5-10.1 [facility] ([facility]) Alkaline phosphatase isoenzyme [Units/volume] in Serum or Pl asma 93 mg/dL 46-116 [facility] ([facility]) Carbon dioxide, total [Moles/volume] in Serum or Plasma 24 meq/L 21 -32 [facility] ([facility]) Chloride [Moles/volume] in Serum or Plasma 104 meq/L 98-107 [facility] ([facility]) Alanine aminotransferase [Enzymatic activity/volume] in Seru m or Plasma 36 U/L 12-78 [facility] ([facility]) Aspartate aminotransferase [Enzymatic activity/volume] in Serum or Plasma 34 U/L 15-37 [facility] ([facility] ) Total Bilirubin 0.4 mg/dL 0.2-1.0 [facility] ([facility]) Proteinase 3 Ab [Units/volume] in Serum 7.0 g/dL 6.4-8.2 [facility] ([facility]) Albumin [Mass/volume] in Serum or Plasma 3.5 g/dL 3.4-5.0 [facility] ([facility]) A/G Ratio 1.00 CALC 1.00-1.90 [facility] ([facility]) Glomerular filtration rate/1.73 sq M pre dicted among non-blacks [Volume Rate/Area] in Serum or Plasma by Creatinine-based formula (MDRD) Laboratory test result [facility] ([facility] Glomerular filtration rate/1.73 sq M pre dicted among blacks [Volume Rate/Area] in Serum or Plasma by Creatinine-based formula (MDRD) Laboratory test result [facility] ([facility]) <content>CHRONIC KIDNEY DISEASE STAGING PER NKF</content>
<content></content>
<content>STAGE I & II GFR >= 60 NORMAL TO MILDLY DECREASED</content>
<content>STAGE III GFR 30-59 MODERATELY DECREASED</content>
<content>STAGE IV GFR 15-29 SEVERELY DECREASED</content>
<content>STAGE V GFR <15 VERY LITTLE GFR LEFT</content>
<content>ESRD GFR <15 ON MANAGER CLINIC</content>
<content></content> ID Date Data Source [id number] 12/20/2019 02:38:00 PM EDT [facility] ([facility] Name Value Range Interpretation Code Description Data Neelima rce(s) Supporting Document(s) Hemoglobin A1c/Hemoglobin.total in Blood 10.7 g/dL 4.8-5.6 [facility] [place] [facility] Lab Result Notes: Pre-Diabetes 5.7 - 6.4 % Diabetes = or > 6.5% Glucose mean value [Mass/volume] in Blood Estimated fr om glycated hemoglobin 260 mg/dL 60-110 [facility] [place] [facility] ID Date Data Source [id number] 12/20/2019 02:38:00 PM EDT [facility] ([facility] Name Value Range Interpretation Code Description Data Neelima rce(s) Supporting Document(s) Erythrocytes [#/volume] in Blood by Automated count 4.14 x10*6/UL 4.2 0-6.30 [facility] ([facility] Leukocytes [#/volume] in Blood by Automated count 9.9 x10*3/UL 4.1-10 .9 [facility] ([facility] Hemoglobin [Mass/volume] in Blood 12.9 g/dL 12.0-18.0 [facility] ([facility] MCV 89.7 fL 80.0-97.0 [facility] ([facility]) Hematocrit [Volume Fraction] of Blood by Automated count 37.2 % 3 7.0-51.0 [facility] ([facility]) MCHC 34.8 g/dL 31.0-38.0 [facility] ([facility]) Platelets [#/volume] in Blood by Automated count 243 x10*3/UL 140-440 [facility] ([facility] Erythrocyte distribution width [Ratio] by Automated count 12.0 % 11.6-13.7 [facility] ([facility]) MCH 31.2 pg 26.0-32.0 [facility]) Mid % 8.5 % 1.7-9.3 [facility] [place] [facility] MPV 8.5 FL 7.8-11.0 [facility] [facility] Lymph % 41.9 % 10.0-58.5 [facility] [facility] Neut % 49.6 % 37.0-92.0 [facility] [place] [facility] Lymph # 4.1 x10*3/UL 0.6-4.1 [facility] ([facility]) Mid # 0.9 x10*3/UL 0.1-0.6 [facility] ([facility]) Neut # 4.9 x10*3/UL 2.0-7.8 [facility] ([facility]) ID Date Data Source [id number] 12/20/2019 02:38:00 PM EDT [facility] ([facility]) Name Value Range Interpretation Code Description Data Neelima rce(s) Supporting Document(s) Hemoglobin A1c/Hemoglobin.total in Blood Laboratory test result [facility] ([facility]) ID Date Data Source [id number] 12/20/2019 02:37:00 PM EDT [facility] ([facility]) Name Value Range Interpretation Code Description Data Neelima rce(s) Supporting Document(s) Cholesterol in LDL [Mass/volume] in Serum or Plasma by Direct assay Laboratory test result [facility] ([facility] ) SEE SEPARATE REPORT Testing performed at reference lab . Report copy to follow on a separate form. 01/26/20 REF LAB#:[id number] ID Date Data Source [id number] 12/20/2019 02:37:00 PM EDT [facility] ([facility]) Name Value Range Interpretation Code Description Data Neelima rce(s) Supporting Document(s) Calcidiol [Mass/volume] in Serum or Plasma 38.0 24.0-80.0 [facility]) This test was performed using [employer] I P Vitamin D immunoassay kit. Values obtained with different assay methods should not be used interchangeably. ID Date Data Source [id number] 12/20/2019 02:37:00 PM EDT [facility] ([facility]) Name Value Range Interpretation Code Description Data Neelima rce(s) Supporting Document(s) Cholesterol in LDL [Mass/volume] in Serum or Plasma by Direct assay Laboratory test result [facility] ([facility] [place] [facility] ID Date Data Source [id number] 12/25/2019 07:05:00 AM EDT [facility] Name Value Range Interpretation Code Description Data Neelima rce(s) Supporting Document(s) LDL Chol. (Direct) 74 mg/dL 0-99 [facility] ID Date Data Source [id number] 12/25/2019 07:05:00 AM EDT [facility] Name Value Range Interpretation Code Description Data Neelima rce(s) Supporting Document(s) Please note [facility] The date recorded on the requisition ind icates the sample(s) receivedwere greater than 72 hours old upon arrival in our laboratory. ID Date Data Source [id number] 09/18/2019 03:49:00 AM EDT [facility] Name Value Range Interpretation Code Description Data Neelima rce(s) Supporting Document(s) Laboratory test finding (navigational concept) 43.0 % 38.0-51.0 [facility] ([facility]) Laboratory test finding (navigational concept) 292 mg/dL 70-105 [facility] ([facility]) Laboratory test finding (navigational concept) 139 meq/L 136-145 [facility] ([facility]) Laboratory test finding (navigational concept) 4.7 meq/L 3.5-5.1 [facility] ([facility]) Laboratory test finding (navigational concept) 4.9 mg/dL 4.5-5.3 [facility] ([facility]) Laboratory test finding (navigational concept) 29 mg/dL 8-26 [facility] ([facility]) Laboratory test finding (navigational concept) 23.0 MM/L 23.0-27.0 [facility] ([facility]) Laboratory test finding (navigational concept) 103 meq/L 98-109 [facility] ([facility]) Laboratory test finding (navigational concept) 0.7 mg/dL 0.6-1.3 [facility] ([facility]) ID Date Data Source [id number] 09/18/2019 03:32:00 AM EDT [facility] ([facility]) Name Value Range Interpretation Code Description Data Neelima rce(s) Supporting Document(s) Lipoprotein lipase [Enzymatic activity/volume] in Serum or P lasma 189 U/L 73-393 [facility] ([facility]) ID Date Data Source [id number] 09/18/2019 03:32:00 AM EDT [facility] ([facility]) Name Value Range Interpretation Code Description Data Neelima rce(s) Supporting Document(s) Ast/Sgot 24 U/L 7-37 [facility] [facility]) Alt/SGPT 37 U/L 12-78 [facility] ([facility]) Bilirubin,Direct 0.2 mg/dL 0.0-0.2 [facility] ([facility]) Bilirubin,Total 0.4 mg/dL 0.2-1.0 [facility] ([facility]) Alkaline Phosphatase 84 U/L 45-117 [facility] ([facility]) Albumin/Globulin Ratio 1.18 1.00-1.93 [facility] ([facility]) Total Protein 7.2 GM/DL 6.4-8.2 [facility] ([facility]) Albumin 3.9 GM/DL 3.2-5.2 [facility] ([place] [facility]) ID Date Data Source [id number] 09/18/2019 03:32:00 AM EDT [facility] ([facility]) Name Value Range Interpretation Code Description Data Neelima rce(s) Supporting Document(s) MB/CK Relative Index 2.64 [facility] ([facility]) <content>DIAGNOSIS CRITERIA</content>
<content>MMB ng/ml Relative Index (RI)</content>
<content>NON-AMI < or = 5 N/A</content>
<content>GODFREY ZONE > 5 < or = 4</content>
<content>AMI > 5 > 4</content>
<content></content> CK-MB Value Mass 2.4 ng/mL [facility] ([facility]) CPK Creatine Phosphokinase 91 U/L 26-192 [facility] ([facility]) Troponin I Laboratory test result [facility] ([facility]) <content>Troponin I Reference Interval f or Siemens Dougherty LOCI:</content>
<content></content>
<content>99th Percentile= 0.00-0.045 ng/ml</content>
<content></content>
<content>Risk Stratification:</content>
<content><= 0.10 ng/ml Decreased Risk for Adverse Clinical</content>
<content>Events.</content>
<content>0.10-1.50 ng/ml Increased Risk for Adverse Clinical</content>
<content>Events. Evaluation of additional</content>
<content>criterion and/or repeat testing in 2-6</content>
<content>hours is suggested to rule out myocardial</content>
<content>damage.</content>
<content>>= 1.50 ng/ml Indicative of Myocardial Injury.</content>
<content></content> ID Date Data Source [id number] 09/18/2019 03:32:00 AM EDT [facility] ([facility]) Name Value Range Interpretation Code Description Data Neelima rce(s) Supporting Document(s) White Blood Count 18.9 10 4.0-10.0 [facility] ([facility]) Red Blood Count 4.41 10 4.00-5.40 [facility]) Hematocrit 41.4 % 36.0-47.0 [facility] [facility] Hemoglobin 14.0 g/dL 12.0-15.5 [facility] Mean Corpuscular Hemoglobin 31.7 pg 27.0-33.0 [facility] ([facility]) Mean Corpuscular Volume 93.9 fl 80.0-96.0 [facility] Mean Corpuscular HGB Conc 33.8 g/dL 32.0-36.5 [facility] ([facility]) Platelet Count, Automated 248 10 150-450 [facility] ([facility]) Red Cell Distribution Width 12.6 % 11.5-14.5 [facility] ([facility]) Morrow % 7.7 % 0.0-5.0 [facility] [place] [facility]) Neutrophils % 80.2 % 36.0-66.0 [facility] ([facility]) Lymph % 10.8 % 24.0-44.0 [facility] [place] [facility]) Baso % 0.3 % 0.0-1.0 [facility] [facility] Nucleated Red Blood Cell % 0.0 % 0-0 [facility] ([facility]) Immature Granulocyte % 0.5 % 0-3.0 [facility] ([facility]) Eos % 0.5 % 0.0-3.0 [facility] [facility] Neutrophils # 15.2 10 1.5-8.5 [facility] ([facility]) Morrow # 1.5 10 0.0-0.8 [facility] [place] [facility]) Lymph # 2.0 10 1.5-5.0 [facility] [facility] Eos # 0.1 10 0.0-0.5 [facility] [facility] Baso # 0.1 10 0.0-0.2 [facility] [facility] ID Date Data Source [id number] 06/20/2019 10:09:00 AM EST [facility] ([facility]) Name Value Range Interpretation Code Description Data Neelima rce(s) Supporting Document(s) Bacteria identified in Urine by Culture FULL REPORT IN L <SEE NOTE> [facility] ([facility]) FULL REPORT IN LAB NOTES (eCW and [facility] ). SPECIMEN APPEARS CONTAMINATED ID Date Data Source [id number] 06/20/2019 10:07:00 AM EST [facility] ([facility] Name Value Range Interpretation Code Description Data Neelima rce(s) Supporting Document(s) Microalbumin Urine 19.8 mg/L 1.3-20.0 [facility] ([facility]) Urine Creatinine 225.1 mg/dL 30.0-125.0 [facility] Microalb/Creat Ratio 8.8 ug/mg 0.0-30.0 [facility] ID Date Data Source [id number] 06/20/2019 10:07:00 AM EST [facility] ([facility]) Name Value Range Interpretation Code Description Data Neelima rce(s) Supporting Document(s) Urine Color YELLOW [facility] ([facility]) Urine PH 6.0 units 5.0-9.0 [facility] [place] [facility]) Specific gravity of Urine 1.025 1.005-1.030 [facility] ([facility]) Urine Appearance SL. HAZY Abnormal (applies to non-numer ic results) [facility] ([facility]) Urine Blood LARGE Abnormal (applies to non-numeric re sults) [facility] ([facility]) Glucose [Presence] in Urine >=2000 mg/dL mg/dL A bnormal (applies to non- numeric results) [facility] ([facility]) Urine Leukocytes NEGATIVE [facility] ([facility]) Urine Protein TRACE 0-0 [facility] ([facility]) Urine Ketone NEGATIVE mg/dL [facility] ([facility]) Bilirubin.total [Mass/volume] in Serum or Plasma NEGATIVE [facility] ([facility]) Urine Nitrite NEGATIVE [facility] ([facility]) Urine Urobilinogen 0.2 mg/dL 0.2-1.0 [facility] ([facility]) ID Date Data Source [id number] 06/20/2019 09:26:00 AM EST [facility] ([facility]) Name Value Range Interpretation Code Description Data Neelima rce(s) Supporting Document(s) Thyrotropin [Units/volume] in Serum or Plasma by Detec tion limit <= 0.05 mIU/L 1.72 uIU/mL 0.36-3.74 [facility] ([facility] ) ID Date Data Source [id number] 06/20/2019 09:26:00 AM EST [facility] ([facility]) Name Value Range Interpretation Code Description Data Neelima rce(s) Supporting Document(s) Cholesterol in HDL [Mass/volume] in Serum or Plasma 32 mg/dL 35-60 [facility] ([facility]) Cholesterol [Mass/volume] in Serum or Plasma 174 mg/dL 131-200 [facility] ([facility]) Triglyceride [Mass/volume] in Serum or Plasma 401 mg/dL 30-150 [facility] ([facility]) Cholesterol in LDL [Mass/volume] in Serum or Plasma by calculation Unable to calcul <SEE NOTE> CALC 50-159 [facility] ([facility]) Unable to calculate ID Date Data Source [id number] 06/20/2019 09:26:00 AM EST [facility] ([facility]) Name Value Range Interpretation Code Description Data Neelima rce(s) Supporting Document(s) Urea nitrogen [Mass/volume] in Serum or Plasma 24 mg/dL 7-18 [facility] ([facility]) Sodium [Moles/volume] in Serum or Plasma 141 meq/L 136-145 [facility] ([facility]) Glucose [Mass/volume] in Serum or Plasma 276 mg/dL 74-99 [facility] ([facility]) 100-125 mg/dL PRE-DIABETES/FASTING >126 mg/dL DIABETES/FASTING Creatinine 0.8 mg/dL 0.6-1.3 [facility] ([facility]) Potassium [Moles/volume] in Serum or Plasma 4.2 meq/L 3.5-5.1 [facility] ([facility]) Chloride [Moles/volume] in Serum or Plasma 102 meq/L 98-107 [facility] ([facility]) Carbon dioxide, total [Moles/volume] in Serum or Plasma 28 meq/L 21 -32 [facility] ([facility]) Alkaline phosphatase isoenzyme [Units/volume] in Serum or Pl asma 86 mg/dL 46-116 [facility] ([facility]) Calcium [Mass/volume] in Serum or Plasma 9.6 mg/dL 8.5-10.1 [facility] ([facility]) Total Bilirubin 0.5 mg/dL 0.2-1.0 [facility] ([facility]) Aspartate aminotransferase [Enzymatic activity/volume] in Serum or Plasma 18 U/L 15-37 [facility] ([facility] ) Proteinase 3 Ab [Units/volume] in Serum 7.2 g/dL 6.4-8.2 [facility] ([facility]) Alanine aminotransferase [Enzymatic activity/volume] in Seru m or Plasma 25 U/L 12-78 [facility] ([facility]) Albumin [Mass/volume] in Serum or Plasma 4.0 g/dL 3.4-5.0 [facility] ([facility]) Glomerular filtration rate/1.73 sq M pre dicted among blacks [Volume Rate/Area] in Serum or Plasma by Creatinine-based formula (MDRD) >= 60 mL/min [facility] ([facility] [place] [facility] <content>CHRONIC KIDNEY DISEASE STAGING PER NKF</content>
<content></content>
<content>STAGE I & II GFR >= 60 NORMAL TO MILDLY DECREASED</content>
<content>STAGE III GFR 30-59 MODERATELY DECREASED</content>
<content>STAGE IV GFR 15-29 SEVERELY DECREASED</content>
<content>STAGE V GFR <15 VERY LITTLE GFR LEFT</content>
<content>ESRD GFR <15 ON MANAGER CLINIC</content>
<content></content> Glomerular filtration rate/1.73 sq M pre dicted among non-blacks [Volume Rate/Area] in Serum or Plasma by Creatinine-based formula (MDRD) >= 60 mL/min [facility] ([facility] [place] [facility] A/G Ratio 1.25 CALC 1.00-1.90 [facility] ([place] [facility]) ID Date Data Source [id number] 06/20/2019 09:26:00 AM EST [facility] ([facility]) Name Value Range Interpretation Code Description Data Neelima rce(s) Supporting Document(s) Glucose mean value [Mass/volume] in Blood Estimated fr om glycated hemoglobin 243 mg/dL 60-110 [facility] ([place] [facility] Hemoglobin A1c/Hemoglobin.total in Blood 10.1 g/dL 4.8-5.6 [facility] ([place] [facility] Lab Result Notes: Pre-Diabetes 5.7 - 6.4 % Diabetes = or > 6.5% ID Date Data Source [id number] 06/20/2019 09:26:00 AM EST [facility] ([facility]) Name Value Range Interpretation Code Description Data Neelima rce(s) Supporting Document(s) Leukocytes [#/volume] in Blood by Automated count 13.5 x10*3/UL 4.1-1 0.9 [facility] ([facility]) NOTE: RESULT VERIFIED. Erythrocytes [#/volume] in Blood by Automated count 4.41 x10*6/UL 4.2 0-6.30 [facility] ([facility]) Hemoglobin [Mass/volume] in Blood 13.7 g/dL 12.0-18.0 [facility] ([facility]) Hematocrit [Volume Fraction] of Blood by Automated count 39.3 % 3 7.0-51.0 [facility] ([facility]) MCV 89.0 fL 80.0-97.0 [facility] [place] [facility]) Erythrocyte distribution width [Ratio] by Automated count 12.0 % 11.6-13.7 [facility] ([facility]) MCH 31.1 pg 26.0-32.0 [facility] [place] [facility] MCHC 34.9 g/dL 31.0-38.0 [facility] [place] [facility] Lymph % 35.7 % 10.0-58.5 [facility] [place] [facility] MPV 8.8 FL 7.8-11.0 [facility] ([place] [facility]) Platelets [#/volume] in Blood by Automated count 294 x10*3/UL 140-440 [facility] ([facility]) Mid % 8.8 % 1.7-9.3 [facility] [place] [facility] Neut % 55.5 % 37.0-92.0 [facility] [place] [facility] Mid # 1.2 x10*3/UL 0.1-0.6 [facility] ([facility]) Lymph # 4.8 x10*3/UL 0.6-4.1 [facility] ([facility]) Neut # 7.5 x10*3/UL 2.0-7.8 [facility] ([facility]) ID Date Data Source [id number] 06/20/2019 09:25:00 AM EST [facility] ([facility]) Name Value Range Interpretation Code Description Data Neelima rce(s) Supporting Document(s) Cholesterol in LDL [Mass/volume] in Serum or Plasma by Direct as say <pending> [facility] Procedure Vital Signs ID Date Data Source UNK Name Value Range Interpretation Code Description Data Source(s) Body mass index (BMI) [Ratio] 35.1 kg/m2 35.1 k g/m2 [facility] ([facility]) Oxygen saturation in Arterial blood by Pulse oximetry 96 % 96 % [facility] Body weight 216.00 [lb_av] 216.00 [lb_av] [facility] Body height 65.75 [in_i] 65.75 [in_i] [facility] ([facility]) 5'5.75" Heart rate 68 /min 68 /min [facility] ([facility]) Diastolic blood pressure 60 mm[Hg] 60 mm[Hg] [facility]) Systolic blood pressure 104 mm[Hg] 104 mm[Hg] M [facility] ([facility]) Body mass index (BMI) [Ratio] 37.1 kg/m2 37.1 k g/m2 [facility] ([facility]) Oxygen saturation in Arterial blood by Pulse oximetry 97 % 97 % [facility] ([facility]) RM Air Body weight 228.00 [lb_av] 228.00 [lb_av] [facility] Body height 65.75 [in_i] 65.75 [in_i] [facility] ([facility]) 5'5.75" Heart rate 75 /min 75 /min [facility] ([facility]) Diastolic blood pressure 50 mm[Hg] 50 mm[Hg] [facility] ([facility]) Systolic blood pressure 96 mm[Hg] 96 mm[Hg] M [facility] ([facility]) Body mass index (BMI) [Ratio] 36.0 kg/m2 36.0 k g/m2 [facility] ([facility] Heart rate 65 /min 65 /min [facility] ([facility] Diastolic blood pressure 68 mm[Hg] 68 mm[Hg] [facility] ([facility] Systolic blood pressure 100 mm[Hg] 100 mm[Hg] [facility] Body weight 230.00 [lb_av] 230.00 [lb_av] [facility] ([facility] Body height 67 [in_i] 67 [in_i] [facility] 5'7" Body mass index (BMI) [Ratio] 35.3 kg/m2 35.3 k g/m2 [facility] ([facility]) Body weight 217.00 [lb_av] 217.00 [lb_av] [facility] ([facility]) Body height 65.75 [in_i] 65.75 [in_i] [facility] 5'5.75" Heart rate 72 /min 72 /min [facility] ([facility]) Diastolic blood pressure 78 mm[Hg] 78 mm[Hg] [facility] ([facility]) Systolic blood pressure 110 mm[Hg] 110 mm[Hg] [facility] ([facility])
--- NOTE | 2020-06-16 06:44 | REPVR ---
PROCEDURE INFORMATION: Exam: XR Abdomen, 1 View Exam date and time: 06/16/2020 6:01 AM Age: 60 years old Clinical indication: Abdominal pain; Additional info: Constipation TECHNIQUE: Imaging protocol: XR of the abdomen. Views: Frontal supine view of the abdomen. 1 View. COMPARISON: CT ABD PELVIS W/O CONTRAST 06/28/2015 3:56 PM FINDINGS: Gastrointestinal tract: There is moderate diffuse colonic stool burden including a low lying cecum in the right hemipelvis. Organs: Patient is status post cholecystectomy. Vasculature: Bilateral pelvic phleboliths seen. There is nonspecific calcification in the left upper abdominal quadrant possibly vascular or in the pancreas. Bones/joints: Unremarkable. IMPRESSION: 1. No obstructive bowel gas pattern. 2. Moderate colonic stool burden. Electronically signed by: Galindo St On 06/16/2020 06:44:19 AM
[2020-06-16] MEDS ORDERED: NS 500 ML IV ONE (06:45)
[2020-06-16 07:11] LABS: BASO % 0.2 % (0.0-1.0); HEMATOCRIT 42.4 % (36.0-47.0); HEMOGLOBIN 14.3 g/dl (12.0-15.5); LYMPH # 2.4 10^3/uL (1.5-5.0); LYMPH % 13.4 % (24.0-44.0); MEAN CORPUSCULAR HEMOGLOBIN 31.1 pg (27.0-33.0); MEAN CORPUSCULAR HGB CONC 33.7 g/dl (32.0-36.5); MEAN CORPUSCULAR VOLUME 92.2 fl (80.0-96.0); MONO # 1.2 10^3/uL (0.0-0.8); MONO % 6.9 % (0.0-5.0); PLATELET COUNT, AUTOMATED 243 10^3/uL (150-450); VENOUS BASE EXCESS 0.3 (-2.0-2.0); VENOUS HCO3 24.4 MEQ/L (23.0-27.0); VENOUS O2 SATURATION 88.7 % (60.0-80.0); VENOUS PARTIAL PRESSURE CO2 38.1 mmHg (38.0-50.0); VENOUS PARTIAL PRESSURE O2 52.2 mmHg (30.0-50.0); VENOUS PH 7.425 UNITS (7.330-7.430); VENOUS STANDARD HCO3 24.5 MEQ/L; VENOUS TOTAL CO2 25.6 MEQ/L (24.0-28.0); WHITE BLOOD COUNT 17.7 10^3/uL (4.0-10.0)
[2020-06-16 07:39] LABS: ACETONE/KETONE 18.34 MG/DL (<2.81); ALBUMIN 3.9 GM/DL (3.2-5.2); BILIRUBIN,DIRECT 0.3 MG/DL (0.0-0.2); BILIRUBIN,TOTAL 0.8 MG/DL (0.2-1.0); TOTAL PROTEIN 7.4 GM/DL (6.4-8.2)
[2020-06-16] MEDS ORDERED: ISOVUE-370 76% 100ML VIAL As Ordered ONE (07:55)
[2020-06-16] MEDS ORDERED: NS 1,000 ML IV ONE (08:00)
[2020-06-16] MEDS ORDERED: cefTRIAXone SOD 1 GM in D5W MINI-BAG PLUS 50 ML IV ONE (08:00)
[2020-06-16] MEDS ORDERED: ACETAMINOPHEN 325 MG TAB PO ONE (08:00)
[2020-06-16] MEDS ORDERED: LEVEMIR (INSULIN DETEMIR) 1 UNITS/0.01ML SC ONE (08:15)
--- NOTE | 2020-06-16 08:59 | REP ---
INDICATION: LLQ pain. COMPARISON: Comparison CT study abdomen and pelvis 28 June 2015.. TECHNIQUE: Helical scanning was acquired and 4 mm axial images are re-formatted. Coronal and sagittal MPR images were generated and reviewed. The contrast enhancement dose is 100 mL of intravenous Isovue 370. 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 Median sternotomy wires are noted and there are clips in right upper quadrant of the abdomen. The lung bases are clear on axial CT images. The liver shows mild diffuse fatty infiltration. It is borderline in size with a vertical span in the midclavicular line of 16 cm. No focal hepatic lesion is seen. The spleen is normal in size homogeneous in texture. Normal adrenal glands are observed bilaterally. There are clips in the gallbladder fossa. Common bile duct is normal in size post cholecystectomy measuring 8 mm. No abnormality is noted in the pancreas. Small and large intestinal bowel loops are normal in the upper abdomen. There is a 4 mm intrarenal calculus in the lower pole of the right kidney. Intrarenal collecting systems and renal pelves are somewhat full bilaterally but no obstructive lesion is appreciated. There is a 10 mm filling defect in the right gonadal vein at the level of the lower pole of the right kidney. This is adjacent to the right ureter. This is felt to be a chronic finding as there are no inflammatory changes and a small focal swelling of the same segment of the gonadal vein on the right is observed in retrospect on the noncontrast CT study done in 2015. No abnormality noted on the left in the gonadal vein. Uterus is surgically absent. No ovarian lesion is apparent on either side. Vascular calcification is noted in a normal caliber aorta. Urinary bladder is intact. No abdominal wall defect is seen. A normal appendix is seen coursing over the right iliopsoas muscle. There is no CT evidence of appendicitis. IMPRESSION: Mild bilateral hydronephrosis of the renal pelvis and very proximal ureters. Intrarenal nephrolithiasis lower pole right kidney. No ureteral calculus. There is a 1 cm filling defect in the gonadal vein on the right consistent with a thrombus. This may be chronic. Normal appendix. Post cholecystectomy and hysterectomy. Fatty infiltration of the liver. Otherwise negative. <Electronically signed by Ed Zapata > 06/16/20 [id number]
[2020-06-16] MEDS ORDERED: XARE15TA PO (09:22)
[2020-06-16] MEDS ORDERED: CEPH500C3 PO (09:29)
[2020-06-16] MEDS ORDERED: RIVAROXABAN 15 MG TAB (XARELTO) PO ONE (09:45)
[2020-06-16 09:46] VITALS: BP 161/77
== END 2020-06-16 10:17 | disposition home or self-care (01) ==
LOC: M ED 04:27
DX: N39.0 Urinary tract infection, site not specified (principal); R73.09 Other abnormal glucose; K76.0 Fatty (change of) liver, not elsewhere classified; N13.2 Hydronephrosis with renal and ureteral calculous obstruction; K59.00 Constipation, unspecified; I82.409 Acute embolism and thrombosis of unspecified deep veins of unspecified lower extremity; I25.2 Old myocardial infarction; E11.9 Type 2 diabetes mellitus without complications; I10 Essential (primary) hypertension; E78.5 Hyperlipidemia, unspecified; E03.9 Hypothyroidism, unspecified; M54.9 Dorsalgia, unspecified; K21.9 Gastro-esophageal reflux disease without esophagitis; Z87.448 Personal history of other diseases of urinary system; Z95.5 Presence of coronary angioplasty implant and graft; Z95.1 Presence of aortocoronary bypass graft; Z79.82 Long term (current) use of aspirin; Z79.4 Long term (current) use of insulin; Z79.899 Other long term (current) drug therapy
CPT/HCPCS: 74018; 74177; 80047; 80076; 81001; 82010; 82803; 83605; 83690; 83735; 85025; 87040; 87086; 96365; 99284; J0696; Q9967

== ENCOUNTER → 2020-12-06 | Outpatient (REF) | payer MEDICARE, MEDICAID ==
[~2020-12-06] MED LIST changes: +ASPI81CH33 PO; +ATEN50TA2 PO; +CEPH500C3 PO; +CLOP75TA2 PO; +CYCL5TAB PO; +ERGO500029 PO; +ESTR10TA VG; +FENO145T7 PO; +FOLI1TAB11 PO; +FURO40TA2 PO; +GABA800T4 PO; +HUMA100I5 SUBQ; +LEVO112T2 PO; +PANT40TA29 PO; +POTA20TA6 PO; +ROSU40TA4 PO; +TRES1INJ SUBQ; +TRUL0.5I SUBQ; +XARE15TA PO
== END ==
LOC: M LAB REF 17:08
PROVIDERS: ATTEND Nurse Practitioner Adult Health
DX: Z79.899 Other long term (current) drug therapy (principal)

== ENCOUNTER → 2021-01-16 | Outpatient (REF) | payer MEDICARE, MEDICAID ==
[2021-01-19 12:07] LABS: LDL DIRECT 71 mg/dL (0-99)
== END ==
LOC: M LAB REF 11:06
PROVIDERS: ATTEND Nurse Practitioner Adult Health
DX: Z01.84 Encounter for antibody response examination (principal); E78.2 Mixed hyperlipidemia

== ENCOUNTER → 2021-07-22 | Outpatient (REF) | payer MEDICARE, MEDICAID ==
[~2021-07-22] MED LIST changes: +POTA-151 PO; -POTA20TA6 PO
== END ==
LOC: M LAB REF 12:22
PROVIDERS: ATTEND Nurse Practitioner Adult Health
DX: E78.2 Mixed hyperlipidemia (principal)

== ENCOUNTER → 2021-12-03 | Outpatient (CLI) | payer MEDICARE, MEDICAID | LOC: M WHC 13:43 | PROVIDERS: ATTEND Nurse Practitioner Adult Health | DX: Z12.31 Encounter for screening mammogram for malignant neoplasm of breast (principal); M81.8 Other osteoporosis without current pathological fracture; Z87.39 Personal history of other diseases of the musculoskeletal system and connective tissue ==

== ENCOUNTER → 2022-05-14 | Outpatient (REF) | payer MEDICARE, MEDICAID | LOC: M LAB REF 11:49 | PROVIDERS: ATTEND Nurse Practitioner Adult Health | DX: Z79.899 Other long term (current) drug therapy (principal); M81.0 Age-related osteoporosis without current pathological fracture ==

== ENCOUNTER → 2022-08-13 | Outpatient (REF) | payer MEDICARE, MEDICAID | LOC: M LAB REF 16:31 | PROVIDERS: ATTEND Nurse Practitioner Adult Health | DX: Z79.899 Other long term (current) drug therapy (principal) ==

== ENCOUNTER → 2022-08-21 | Outpatient (REF) | payer MEDICARE, MEDICAID | LOC: M LAB REF 16:46 | PROVIDERS: ATTEND Nurse Practitioner Adult Health | DX: Z79.899 Other long term (current) drug therapy (principal) ==

== ENCOUNTER → 2023-02-03 | Outpatient (REF) | payer MEDICARE, MEDICAID ==
[2023-02-06 13:06] LABS: LDL DIRECT 60 mg/dL (0-99)
== END ==
LOC: M LAB REF 16:46
PROVIDERS: ATTEND Nurse Practitioner Adult Health
DX: Z11.59 Encounter for screening for other viral diseases (principal); Z79.899 Other long term (current) drug therapy; E78.00 Pure hypercholesterolemia, unspecified

== ENCOUNTER → 2023-12-02 | Outpatient (REF) | payer MEDICARE, MEDICAID ==
[~2023-12-02] MED LIST changes: +ONDA-282 PO; -ONDA4TAB6 PO; -ROSU40TA4 PO; +ROSU40TA63 PO
[2023-12-04 23:02] LABS: LDL DIRECT 89 mg/dL (<100)
== END ==
LOC: M LAB REF 16:31
PROVIDERS: ATTEND Nurse Practitioner Adult Health
DX: E78.2 Mixed hyperlipidemia (principal); N81.0 Urethrocele